=== PATIENT | female | born 1950 | race Caucasian/White ===

== ENCOUNTER 2021-04-12 13:05 | Outpatient (REF) | payer MEDICARE, MEDICAID, SELFPAY ==
[2021-04-12 14:31] LABS: Blood Urea Nitrogen 15 mg/dL (9-16); Estimated Glomerular Filt Rate 56
== END 2021-04-12 13:06 | disposition home or self-care (01) ==
LOC: HO.HMGCLDS 13:05
PROVIDERS: PCP Internal Medicine; Visit Provider Surgery Vascular Surgery
DX: I70.219 Atherosclerosis of native arteries of extremities with intermittent claudication, unspecified extremity (principal)
CPT/HCPCS: 36415; 82565; 84520

== ENCOUNTER 2024-04-19 13:09 | Outpatient (REF) | payer MEDICARE, MEDICAID, SELFPAY ==
[2024-04-19 16:05] LABS: MANUAL DIFF FLAG NO
[2024-04-19 16:18] LABS: Basophils Absolute Auto 0.1 X10*3/uL (0.0-0.2); Eosinophils Absolute Auto 0.2 X10*3/uL (0.0-0.4); Eosinophils Percent Auto 1.9 % (0-4); Hematocrit 39.7 % (37.0-47.0); Imm Gran Abs Auto 0.06 X10*3/uL (0.00-0.03); Imm Gran Pct Auto 0.8 % (0.0-0.4); Lymphocytes Absolute Auto 1.1 X10*3/uL (1.2-4.9); Lymphocytes Percent Auto 14.2 % (20-40); Mean Corpuscular HGB Conc 32.7 g/dl (31.0-35.0); Mean Corpuscular Hemoglobin 30.2 pg (27.0-33.0); Mean Corpuscular Volume 92.1 fL (80.0-98.0); Monocytes Absolute Auto 0.5 X10*3/uL (0.1-1.2); Monocytes Percent Auto 6.2 % (2-11); Neutrophils Percent Auto 75.9 % (45-73); Platelet Count 214 X10*3/uL (160-400); Red Blood Count 4.31 X10*6/uL (4.20-5.50); Red Cell Distribution Width 13.6 % (11.0-16.0); White Blood Count 7.9 X10*3/uL (4.8-10.8)
[2024-04-19 16:37] LABS: Alanine Aminotransferase 21 U/L (0-31); Albumin Level 3.6 g/dL (3.5-5.0); Alkaline Phosphatase 61 U/L (39-117); Anion Gap 16 (12-20); Aspartate Amino Transferase 22 U/L (5-31); Bilirubin Total 0.5 mg/dL (0.0-1.0); Blood Urea Nitrogen 24 mg/dL (9-16); Calcium 9.4 mg/dL (8.4-10.2); Carbon Dioxide 25 mmol/L (22-29); Chloride 100 mmol/L (96-108); Estimated Glomerular Filt Rate 33; Glucose Random 219 mg/dL (60-115); Magnesium 2.1 mg/dL (1.6-2.6); Phosphorus 3.2 mg/dL (2.7-4.5); Potassium 3.9 mmol/L (3.3-5.1); Sodium 137 mmol/L (135-145); Total Protein 6.9 g/dL (6.5-8.0); Uric Acid 7.5 mg/dL (2.4-5.7)
[2024-04-19 16:38] LABS: Creatinine Urine 149.33 mg/dL; Protein/Creatinine Ratio, Ur 0.08 (<0.2); Total Protein Urine Random 12 mg/dL (<12)
[2024-04-19 16:45] LABS: Parathyroid Hormone Intact 177.8 pg/mL (8.7-77.1)
== END 2024-04-19 13:10 | disposition home or self-care (01) ==
LOC: HO.HMGCLDS 13:09
PROVIDERS: PCP Internal Medicine; Visit Provider Internal Medicine Nephrology
DX: E11.22 Type 2 diabetes mellitus with diabetic chronic kidney disease (principal); N18.31 Chronic kidney disease, stage 3a; E78.5 Hyperlipidemia, unspecified; I25.10 Atherosclerotic heart disease of native coronary artery without angina pectoris; F31.9 Bipolar disorder, unspecified; I82.409 Acute embolism and thrombosis of unspecified deep veins of unspecified lower extremity; G47.33 Obstructive sleep apnea (adult) (pediatric)
CPT/HCPCS: 36415; 80053; 82306; 82570; 83735; 83970; 84100; 84156; 84550; 85025

== ENCOUNTER 2024-09-20 14:09 | Outpatient (REF) | payer MEDICARE, MEDICAID, SELFPAY ==
--- OUTSIDE RECORDS SUMMARY | 2024-09-20 15:51 | XMS_ITS | Clinical Summary ---
Author Organization [facility] Address [address] [facility] [address] [place] [address] Phone Care Team Providers Care Dry Color Tester Name Role Phone Tani Hernandes MD Primary Care Provider [phone] Allergies Active Allergy Reactions Criticality Noted Date Comments Codeine Itching,Nausea 08/31/2023 Morphine 09/15/2022 Oxycodone-Acetaminophen 09/15/2022 Other reaction(s): up set stomoch Medications atorvastatin (LIPITOR) 20 MG tablet Take 20 mg by mouth every night 0 Active carvedilol (COREG) 12.5 MG tablet Take 12.5 mg by mouth in the morning and 12.5 mg in the evening. 3 Active Breo Ellipta 100-25 MCG/ACT aerosol powder Inhale 1 puff 1 (one) time each day 3 Active furosemide (LASIX) 40 MG tablet TAKE 2 TABLETS BY MOUTH IN THE MORNING AND 1 TABLET IN AFTERNOON BY MOUTH 3 Active gabapentin (NEURONTIN) 800 MG tablet Take 800 mg by mouth in the morning and 800 mg in the evening. 3 Active glipiZIDE (GLUCOTROL) 5 MG tablet Take 5 mg by mouth 1 (one) time each day 1 Active Basaglar KwikPen 100 UNIT/ML injection Inject 46 Units under the skin every night 3 Active isosorbide mononitrate (IMDUR) 60 MG 24 hr tablet Take 60 mg by mouth 1 (one) time each day in the morning 3 Active levothyroxine (SYNTHROID, LEVOTHROID) 25 MCG tablet Take 25 mcg by mouth 1 (one) time each day 3 Active Lisinopril (ZESTRIL PO) Take 40 mg by mouth 1 (one) time each day 2 Active pantoprazole (Protonix) 40 MG EC tablet Take 40 mg by mouth 1 (one) time each day 2 Active pregabalin (LYRICA) 75 MG capsule Take 75 mg by mouth in the morning and 75 mg at noon and 75 mg in the evening. 3 Active QUEtiapine (SEROquel) 200 MG tablet Take 200 mg by mouth 1 (one) time each day 0 Active QUEtiapine (SEROquel) 50 MG tablet Take 50 mg by mouth 1 (one) time each day 3 Active sertraline (ZOLOFT) 25 MG tablet Take 25 mg by mouth 1 (one) time each day 3 Active traMADol (ULTRAM) 50 MG tablet Take 50 mg by mouth every 6 (six) hours if needed 0 Active traZODone (DESYREL) 150 MG tablet Take 150 mg by mouth 1 (one) time each day 3 Active apixaban (Eliquis) 5 MG tablet Take 5 mg by mouth in the morning and 5 mg in the evening. 3 Active aspirin (ST KARLA) 81 MG EC tablet Take 81 mg by mouth 1 (one) time each day Active insulin NPH, Isophane, (NovoLIN N) 100 UNIT/ML injection Inject under the skin 3 (three) times a day before meals 3 Active Dapagliflozin Propanediol (Farxiga) 5 MG tablet Take 5 mg by mouth 1 (one) time each day in the morning 90 tablet 4 Active amLODIPine (NORVASC) 10 MG tablet TAKE 1/2 TABLET BY MOUTH 1 TIME EACH DAY. 45 tablet 4 Active calcitriol (ROCALTROL) 0.25 MCG capsule TAKE 1 CAPSULE (0.25 MCG TOTAL) BY MOUTH 1 (ONE) TIME EACH DAY 90 capsule 4 10/20/19 25 Active Active Problems Problem Noted Date Diagnosed Date Type 2 diabetes mellitus wit h diabetic chronic kidney disease 04/23/2024 Malignant neoplasm of cecum 02/25/2024 Stage 3a chronic kidney disease 08/31/2023 Hypertension 08/31/2023 Dyslipidemia 08/31/2023 Peripheral arterial occlusive disease 08/31/2023 Abdominal aortic aneurysm wi thout rupture, not otherwise specified 08/31/2023 Coronary arteriosclerosis, not otherwise specifi ed 08/31/2023 Bipolar disorder, not otherwise specified 2023 Deep venous thrombosis <Unspecified side> 2023 Obstructive sleep apnea syndrome 08/31/2023 Diabetes mellitus, not otherwise specified 08/31 Hypomagnesemia 01/10/2023 Paroxysmal atrial fibrillation 10/04/2022 Resolved Problems Problem Noted Date Diagnosed Date Resolved Date Stage 3b chronic kidney disease 04/23/2024 07/21/2024 Encounters Date Type Department Care Team Description 09/04/2024 Refill [facility] [address] [place] [phone] Audie Muhammad MD 07/20/2024 Refill [facility] [address] [place] [phone] Audie Muhammad MD 07/19/2024 Refill [facility] [address] [place] [address] Audie Muhammad MD from Last 3 Months Family History Medical History Relation Comments Atrial fibrillation Brother Diabetes Brother Hypertension Brother Sleep apnea Brother Stroke Father Cancer Mother Diabetes Sister Heart disease Sister CHF Kidney disease Sister End stage Relation Status Comments Brother Father Mother Sister Social History Tobacco Use Types Packs/Day Years Used Date Smoking Tobacco: Never Assessed Comments Unknown Sex and Gender Information Value Date Recorded Sex Assigned at Not on file Legal Sex Female 8:57 AM EST Gender Identity Not on file Sexual Orientation Not on file Last Filed Vital Signs Vital Sign Reading Time Taken Comments Blood Pressure 159/80 04/23/2024 1:56 PM EDT Pulse 74 04/23/2024 1:56 PM EDT Temperature - - Respiratory Rate - - Oxygen Saturation 97% 04/23/2024 1:56 PM EDT Inhaled Oxygen Concentration - - Weight 122 kg (269 lb) 04/23/2024 1:56 PM EDT Height 162.6 cm (5' 4 ) 08/31/2023 10:20 AM EST Body Mass Index 46.17 08/31/2023 10:20 AM EST Plan of Treatment Upcoming Encounters Date Type Department Care Team (Late st Contact Info) Description 09/25/2024 9:20 AM EST Office [facility] [address] [facility] [address] [place] [phone] Elvis Shea MD [address] [facility] [address] [place] [phone] Health Maintenance Due Date Last Done Comments Breast Cancer Screening 1950 Pneumococcal Vaccine: 65+ Years (1 of 2 - PCV) 1956 Colorectal Cancer Screening: Annual FOBT 1999 Colorectal Cancer Screening: Colonoscopy 1999 Colorectal Cancer Screening: Sigmoidoscopy 1999 Diabetes: Hemoglobin A1C 08/31/2023 Diabetes: Ophthalmology Exam 08/31/2023 Diabetes: Pedal Pulse Checked 08/31/2023 Diabetes: Sensory Foot Exam 08/31/2023 Diabetes: Visual Foot Exam 08/31/2023 Influenza Vaccine (#1) 04/28/2024200 8, 08/06/2007 Hepatitis B Vaccine Aged Out No longe r eligible based on patient's age to complete this topic Insurance [place] Care Teams Dry Color Tester Relationship Specialty Start Date End Date Tani Hernandes MD [place] [address] [place], [place] PCP - General Internal Medicine 09/13/22
--- OUTSIDE RECORDS SUMMARY | 2024-09-20 15:51 | XMS_ITS | Encounter Summary ---
Author Organization [facility] Address [address] [place] [address] Care Team Providers Care Pipe Fitter Apprentice Name Role Phone Tani Hernandes MD Primary Care Provider [phone] Encounter Details Date Type Department Care Team Description 11/01/2022 Social Work [facility] [address] [place] [address] Jefe Neely, [facility] Social History Tobacco Use Types Packs/Day Years Used Date Smoking Tobacco: Former Cigarettes Q uit: 2018 Smokeless Tobacco: Never Alcohol Use Standard Drinks/Week Comments Not Currently 0 (1 standard drink = 0.6 oz pur e alcohol) Sex and Gender Information Value Date Recorded Sex Assigned at Female 11/02/2022 11:21 AM EST Gender Identity Not on file Sexual Orientation Not on file Job Start Date Occupation Industry Not on file Not on file Not on file COVID-19 Exposure Response Date Recorded In the last 10 days, have yo u been in contact with someone who was confirmed or suspected to have Coronavirus/COVID-19? No / Unsure 11/03/2022 12:56 PM EST documented as of this encounter Plan of Treatment Not on file documented as of this encounter Visit Diagnoses Not on filedocumented in this encounter Care Teams Pipe Fitter Apprentice Relationship Specialty Start Date End Date Tani Hernandes MD [address] [place] [address] PCP - General Internal Medicine 09/09/22 documented as of this encounter
--- OUTSIDE RECORDS SUMMARY | 2024-09-20 15:51 | XMS_ITS | Encounter Summary ---
Author Organization [facility] [place] [address] Care Team Providers Care Defence Force Senior Officer Name Role Phone Tani Hernandes MD Primary Care Provider [phone] Encounter Details Date Type Department Care Team [...] Assigned at Female 09/16/2024 12:58 PM EST Gender Identity Female 09/16/2024 12:58 PM EST Sexual Orientation Straight 09/16/2024 12 :58 PM EST Job Start Date Occupation Industry Not on file Not on file Not on file documented as of this encounter Last Filed [...] Care Team (Late st Contact Info) Description 09/27/2024 2:00 PM EST Appointment [facility] CT Scan [address] [place] [address] 10/28/2024 1:00 PM EST Appointment [facility] Infusion Center [address] [place] [phone] 11/08/2024 11:45 AM EDT Office Visit [facility] Hematology Oncology [address] [place] [phone] Arron Rowley MD [address] [place] [phone] documented as of this encounter Visit Diagnoses Not on filedocumented in this encounter Care Teams Defence [employer] Senior Officer Relationship Specialty Start Date End Date Tani Hernandes MD [address] [place] [address] PCP - General 09/09/22 documented as of this encounter
--- OUTSIDE RECORDS SUMMARY | 2024-09-20 15:51 | XMS_ITS ---
Author Organization [facility] Address [address] [place] [address] Care Team Providers Care Printed Circuit Boards Beveler Name Role Phone Tani Hernandes MD Primary Care Provider [phone] Active Problems Problem Noted Date Diagnosed Date Drug-induced peripheral neuropathy 02/07/2023 Type 2 diabetes mellitus wit h stage 3a chronic kidney disease, without long-term current use of insulin 01/10/2023 Hypomagnesemia 01/10/2023 Chronic midline low back pain without sciatica 0 12/13/2022 Anemia complicating neoplastic disease 3 COVID-19 10/07/2022 On continuous oral anticoagulation 10/07/2022 Diastolic CHF 10/04/2022 Acute non-Q wave non-ST elev ation myocardial infarction (NSTEMI) 10/04/2022 Multiple subsegmental pulmon manjeet emboli without acute cor pulmonale 10/04/2022 Acute respiratory failure with hypoxia 3 JAMAR (acute kidney injury) 10/04/2022 Anxiety and depression 10/04/2022 Aortic insufficiency 10/04/2022 DVT (deep venous thrombosis) 10/04/2022 Hypertension 10/04/2022 Paroxysmal atrial fibrillation 10/04/2022 SBO (small bowel obstruction) 10/04/2022 Malignant neoplasm of ascending colon 10/04/2022 Cancer Staging:Pathologic stage from 09/05/2022:Stage IIA(pT3, pN0, cM0) - Signed by Arron Garcia MD on 10/07/2022 Current Oncology Plans No current plan information found. Past Plans ONCOLOGY TREATMENT Plan Name Start Date Discontinue Date Treatment Medications Discontinue Reason Plan Provider Cycles SFC BCN OP FOLFOX 6 (MODIFIED) - OXALIPLATIN + LEUCOVORIN + FLUOROURACIL (5 HRS) 3 10/31/2023 albuterol (PROVENTIL)dexamethas one (DECADRON)dextrose 5 %diphenhydrAMINE (BENADRYL)EPINEPHrine famotidine (PF) (PEPCID)fluorouracil (5 FU) 46 Hr Chemo infusion- Home Usefluorouracil (ADRUCIL)hydrocortiso ne (SOLU-CORTEF) IVleucovorin (WELLCOVORIN) infusionmagnesium sulfatemagnesium sulfate 1g/100 mL D5W premix IVPBmeperidine (DEMEROL) 25 MG/MLoxaliplatin (ELOXATIN) chemo infusionpalonosetron (ALOXI)prochlorperazi ne (COMPAZINE)Saline Flush 0.9 %sodium chloride (NS) 0.9 %sodium chloride 0.9% bolus (NS)ZZ EXTEMPORANEOUS TEMPLATE Therapy Complete Arron Garcia MD 12 of 12 cycles started Radiation Treatments * No radiation treatments are documented for this patient in [facility]. Treatments may have been administered in another system.
--- OUTSIDE RECORDS SUMMARY | 2024-09-20 15:51 | XMS_ITS | Clinical Summary ---
Author Organization [facility] Address [address] [place] [address] Phone Care Team Providers Care Shirt Bander Name Role Phone Tani Hernandes MD Primary Care Provider [phone] Allergies Active Allergy Reactions Criticality Noted Date Comments Codeine 10/04/2022 Morphine 10/04/2022 Oxycodone-Acetaminophen 10/04/2022 Medications Medication Sig Dispensed Refills Start Date End Date Status amitriptyline (ELAVIL) 25 mg tablet Take 1 Tablet by mouth at bedtime. Active amLODIPine (NORVASC) 2.5 mg tablet Daily Active atorvastatin (LIPITOR) 20 mg tablet Take 1 Tablet by mouth daily. Active carvediloL (COREG) 12.5 mg tablet Take 1 Tablet by mouth 2 times daily (with meals). Active furosemide (LASIX) 40 mg tablet Twice A Day 09/16/2022 Active isosorbide mononitrate (IMDUR) 60 mg 24 hr tablet Take 1 Tablet by mouth daily. Active levothyroxine (SYNTHROID, LEVOTHROID) 25 mcg tablet Take 1 Tablet by mouth daily. Active traMADoL (ULTRAM) 50 mg tablet Take 1 Tablet by mouth every 8 hours. Active acetaminophen (TYLENOL) 325 mg tablet TAKE 2 TABLETS BY MOUTH EVERY 4 HOURS NEEDED FOR FEVER Active albuterol HFA (PROVENTIL HFA;VENTOLIN HFA) 108 (90 Base) MCG/ACT inhaler Route: Inhale 2 puffs into the lungs every 6 (six) hours as needed for wheezing. - Inhalation Active fluticasone furoate-vilanteroL (Breo Ellipta) 100-25 mcg/dose inhaler TAKE 1 PUFF INHALATION ONCE DAILY X30 DAYS Active dapagliflozin propanediol (FARXIGA) 5 mg tablet Take by mouth. - Oral Active apixaban (ELIQUIS) 5 mg tablet PLEASE SEE ATTACHED FOR DETAILED DIRECTIONS Active furosemide (LASIX) 20 mg tablet Take 1 tablet (20 mg total) by mouth 2 (two) times a day. - Oral Active gabapentin (NEURONTIN) 800 mg tablet Take 1 tablet (800 mg total) by mouth 3 (three) times a day. - Oral Active insulin glargine,hum.rec.anl og (Basaglar KwikPen U-100 Insulin) 100 unit/mL (3 mL) injection pen Inject 28 Units under the skin. - Subcutaneous Active lisinopriL (PRINIVIL,ZESTRIL) 20 mg tablet Take 1 tablet (20 mg total) by mouth daily. - Oral Active NYSTATIN TOP nystatin (MYCOSTATIN) powder Route: Apply topically 4 (four) times a day. - Topical Active pantoprazole (PROTONIX) 40 mg EC tablet Do not crush, chew, or split. TAKE 1 TABLET BY MOUTH EVERY DAY FOR 90 DAYS Active sodium chloride (Normal Saline Flush) 0.9 % injection Intracatheter: As needed for line care Active Active Problems Problem Noted Date Diagnosed Date Acute non-Q wave non-ST elev ation myocardial infarction (NSTEMI) 10/11/2023 Acute respiratory failure with hypoxia JAMAR (acute kidney injury) 10/11/2023 Anemia complicating neoplastic disease Anxiety and depression 10/11/2023 Aortic insufficiency 10/11/2023 Chronic midline low back pain without sciatica 0 10/11/2023 COVID-19 10/11/2023 Diastolic CHF 10/11/2023 Drug-induced peripheral neuropathy 10/11/2023 DVT (deep venous thrombosis) 10/11/2023 Hypertension 10/11/2023 Hypomagnesemia 10/11/2023 Malignant neoplasm of ascending colon 10/11/2023 Multiple subsegmental pulmon manjeet emboli without acute cor pulmonale 10/11/2023 Paroxysmal atrial fibrillation 10/11/2023 SBO (small bowel obstruction) 10/11/2023 Type 2 diabetes mellitus wit h stage 3a chronic kidney disease, without long-term current use of insulin 10/11/2023 Encounters Date Type Department Care Team Description 09/16/2024 12:59 PM EST - 09/16/2024 11:59 PM EST Hospital Encounter [facility] Infusion Center [address] [place] [phone] Malignant neoplasm of ascending colon ([facility]/HCC); Acute non-Q wave non-ST elevation myocardial infarction (NSTEMI) ([facility]/HCC) Discharge Disposition: Home or Self Care 08/09/2024 3:15 PM EST Office Visit [facility] Hematology Oncology [address] [place] [phone] Arron Portillo MD Malignant neoplasm of ascending colon ([facility]/HCC) (Primary Dx); Anemia complicating neoplastic disease; Anxiety and depression; Drug-induced peripheral neuropathy ([facility]/HCC); Chronic midline low back pain without sciatica 08/02/2024 12:59 PM EST - 08/02/2024 11:59 PM EST Hospital Encounter [address] [phone] Malignant neoplasm of ascending colon ([facility]/HCC) (Primary Dx); Acute non-Q wave non-ST elevation myocardial infarction (NSTEMI) ([facility]/HCC) Discharge Disposition: Home or Self Care 06/21/2024 2:17 PM EDT - 06/27/2024 11:59 PM EDT Hospital Encounter [facility] [address] [place] [phone] Arron Portillo MD 06/21/2024 12:53 PM EDT Hospital Encounter TH HISTORIC ENCOUNTERS EASTERN CONVERSION ONLY from Last 3 Months Surgical History Surgery Date Site/Laterality Comments COLONOSCOPY PROCEDURE:COLONOSCOPY HYSTERECTOMY PROCEDURE:HYSTERECTOMY CHOLECYSTECTOMY PROCEDURE:CHOLECYSTECTOMY TOTAL KNEE ARTHROPLASTY PROCEDURE:REPLACEMENT TOTAL KNEE;COMMENT:right DOUBLE CHAMBER RIGHT VENTRIC LE REPAIR PROCEDURE:DOUBLE CHAMBER RIGHT VENTRICLE REPAIR Family History Medical History Relation Name Comments Cancer Mother leukemia Cancer Nephew Relation Name Status Comments Mother Nephew Alive Social History Tobacco Use Types Packs/Day Years [...] file Not on file Not on file Obstetrics History Last Filed Vital Signs Vital Sign Reading Time Taken Comments Blood Pressure 151/71 08/09/2024 3:08 PM EST Pulse 64 08/09/2024 3:08 PM EST Temperature 36.4 ??C (97.5 ??F) 08/09/2024 3:08 PM ES T Respiratory Rate - - Oxygen Saturation 98% 08/09/2024 3:08 PM EST Inhaled Oxygen Concentration - - Weight 124 kg (274 lb) 08/09/2024 3:08 PM EST Height 162.6 cm (5' 4 ) 08/09/2024 3:08 PM EST Body Mass Index 47.03 08/09/2024 3:08 PM EST Plan of Treatment Upcoming Encounters Date Type Department Care Team (Late st Contact Info) Description 09/27/2024 2:00 PM EST Appointment [facility] CT Scan [address] [place] [phone] 10/28/2024 1:00 PM EST Appointment [facility] Infusion Center [address] [place] [phone] 11/08/2024 11:45 AM EDT Office Visit [facility] Hematology Oncology [address] [place] [address] Arron Rowley MD [address] [place] [address] Health Maintenance Due Date Last Done Comments Breast Cancer Screening 1950 Diabetes: Annual Foot Exam 1960 Diabetes: Annual Retina Eye Exam 1960 RSV Immunization Patients 60+ Years Old (1 - Risk 60-74 years 1-dose series) 2010 Pneumococcal Vaccine: 65+ Years (2 of 2 - PPSV23 or PCV20) 05/30/2018 04/04/2018 Zoster Vaccines (2 of 2) 05/22/2020 03/27/2020, 02/27 Cholesterol Screening (Lipid Panel) 07/26/2022 Colorectal Cancer Screening: Colonoscopy 07/26/2022 Depression Screening 07/26/2022 Falls Risk Assessment 07/26/2022 Hepatitis C Screening 07/26/2022 Osteoporosis Screening (Bone Density Screening) 07/26/2022 Social Influencers of Health Screening 07/26/2022 Diabetes: Annual Urine Albumin-Creatinine Ratio (uACR) 10/12/2023 Diabetes: Blood Sugar Control Test (HGBA1C) 10/12/2023 COVID-19 Vaccine ( season) 2024 09/15/2021, 12/14/2020, 11/16/2020 Influenza Vaccine (#1) 2024 , 06/17/2022, 05/27/2022, Additional history exists Medicare Annual Wellness Visit 06/06/2024 06/06/2023 Diabetes: Annual GFR (Glomerular Filtration Rate) 09/16/2025 09/16/2024, 06/21/2024, 04/19/2024, Additional history exists Hypertension/CHF/CAD Annual BMP Blood Test 09/16/2025 09/16/2024, 06/21/2024, 04/19/2024, Additional history exists DTaP,Tdap,and Td Vaccines (3 - Td or Tdap) 10/04/2031 10/04/2021, 05/22/2008 HIB Vaccines Aged Out No longer eligi ble based on patient's age to complete this topic HPV Vaccines Aged Out No longer eligi ble based on patient's age to complete this topic Hepatitis A Vaccines Aged Out No long er eligible based on patient's age to complete this topic Hepatitis B Vaccines Aged Out No long er eligible based on patient's age to complete this topic IPV Vaccines Aged Out No longer eligi ble based on patient's age to complete this topic MMR Vaccines Aged Out No longer eligi ble based on patient's age to complete this topic Meningococcal ACWY Vaccine Aged Out N o longer eligible based on patient's age to complete this topic RSV Immunization Patients Under 20 months Aged Out No longer eligible based on patient's age to complete this topic Varicella Vaccines Aged Out No longer eligible based on patient's age to complete this topic Procedures Procedure Name Priority Date/Time Associated Diagnosis Comments CBC WITH AUTO DIFFERENTIAL Routine 09/16/2024 1:14 PM EST Malignant neoplasm of ascending colon (CMS/HCC) Acute non-Q wave non-ST elevation myocardial infarction (NSTEMI) (CMS/HCC) CARCINOEMBRYONIC ANTIGEN Routine 025 1:14 PM EST Malignant neoplasm of ascending colon (CMS/HCC) Acute non-Q wave non-ST elevation myocardial infarction (NSTEMI) (CMS/HCC) COMPREHENSIVE METABOLIC PANEL Routine 09/16/2024 1:14 PM EST Malignant neoplasm of ascending colon (CMS/HCC) Acute non-Q wave non-ST elevation myocardial infarction (NSTEMI) (CMS/HCC) CBC AND DIFFERENTIAL Routine 09/16/2024 1:14 PM EST Malignant neoplasm of ascending colon (CMS/HCC) Acute non-Q wave non-ST elevation myocardial infarction (NSTEMI) (CMS/HCC) COMPREHENSIVE METABOLIC PANEL Routine 06/21/2024 12:14 PM EDT ..CBC WITH MANUAL DIFFERENTIAL Routine 06/21/2024 12:10 PM EDT from Last 3 Months Results * (ABNORMAL) CBC auto differential (09/16/2024 1:14 PM EST) WBC 6.8 4.8 - 10.8 K/mcL LAB HEMETOLOGY METHOD 09/16/2024 2:20 PM EST [facility] RBC 4.20 3.80 - 4.80 M/mcL LAB HEMETOLOGY METHOD 09/16/2024 2:20 PM EST [facility] Hemoglobin 12.5 11.5 - 16.0 g/dL LAB HEMETOLOGY METHOD 09/16/2024 2:20 PM EST [facility] Hematocrit 38.7 35.0 - 47.0 % LAB HEMETOLOGY METHOD 09/16/2024 2:20 PM [facility] MCV 92.1 79.0 - 98.0 FL LAB HEMETOLOGY METHOD 09/16/2024 2:20 PM [facility] MCH 29.8 27.0 - 32.0 pcg LAB HEMETOLOGY METHOD 09/16/2024 2:20 PM [facility] MCHC 32.3 32.0 - 37.0 g/dL LAB HEMETOLOGY METHOD 09/16/2024 2:20 PM [facility] RDW 14.2 11.0 - 15.0 % LAB HEMETOLOGY METHOD 09/16/2024 2:20 PM [facility] Platelets 219 130 - 400 K/mcL LAB HEMETOLOGY METHOD 09/16/2024 2:20 PM [facility] MPV 9.7 7.0 - 11.0 FL LAB HEMETOLOGY METHOD 09/16/2024 2:20 PM [facility] NRBC 0.0 <1.0 % LAB HEMETOLOGY METHOD 09/16/2024 2:20 PM [facility] NRBC Absolute 0.00 <0.10 K/mcL LAB HEMETOLOGY METHOD 09/16/2024 2:20 PM [facility] Neutrophils Relative 76.1 % LAB HEMETOLOGY METHOD 09/16/2024 2:20 PM [facility] Lymphocytes Relative 14.1 % LAB HEMETOLOGY METHOD 09/16/2024 2:20 PM [facility] Monocytes Relative 7.0 % LAB HEMETOLOGY METHOD 09/16/2024 2:20 PM [facility] Eosinophils Relative 1.8 % LAB HEMETOLOGY METHOD 09/16/2024 2:20 PM [facility] Basophils Relative 0.6 % LAB HEMETOLOGY METHOD 09/16/2024 2:20 PM EST [facility] Immature Granulocytes Relative 0.4 % LAB HEMETOLOGY METHOD 09/16/2024 2:20 PM EST [facility] Neutrophils Absolute 5.15 1.50 - 7.00 K/mcL LAB HEMETOLOGY METHOD 09/16/2024 2:20 PM EST [facility] Lymphocytes Absolute 0.95(L) 1.00 - 5.00 K/mcL LAB HEMETOLOGY METHOD 09/16/2024 2:20 PM EST [facility] Monocytes Absolute 0.47 0.20 - 1.00 K/mcL LAB HEMETOLOGY METHOD 09/16/2024 2:20 PM EST [facility] Eosinophils Absolute 0.12 0.00 - 0.50 K/mcL LAB HEMETOLOGY METHOD 09/16/2024 2:20 PM EST [facility] Basophils Absolute 0.04 0.00 - 0.20 K/mcL LAB HEMETOLOGY METHOD 09/16/2024 2:20 PM EST [facility] Immature Granulocytes Absolute 0.03 0.00 - 0.03 K/mcL LAB HEMETOLOGY METHOD 09/16/2024 2:20 PM EST [facility] Blood Blood sample taken from central line / Unknown Existing Catheter / Unknown 09/16/2024 1:14 PM EST 09/16/2024 2:02 PM EST Arron Rowley MD LAB BLOOD O RDERABLES [facility] [address] [place] [address], * CEA (09/16/2024 1:14 PM EST) CEA 2.4 0.0 - 5.0 ng/mL LAB CHEMISTRY METHOD 09/16/2024 3:06 PM EST [facility] Blood Blood sample taken from central line / Unknown Existing Catheter / Unknown 09/16/2024 1:14 PM EST 09/16/2024 2:02 PM EST [facility] - 09/16/2024 3:06 PM EST The Siemens Advia Centaur Chemiluminescent Immunoassay is used. Results obtained with different assay methods or kits cannot be used interchangeably. Results cannot be interpreted as absolute evidence of the presence or absence of malignant disease. Arron Rowley MD LAB BLOOD O RDERABLES [facility] [address] [place] [address], * (ABNORMAL) Comprehensive metabolic panel (09/16/2024 1:14 PM EST) Only the most recent of2 resultswithin the time period is included. Sodium 137 133 - 145 mmol/L LAB CHEMISTRY METHOD 09/16/2024 3:02 PM [facility] Potassium 3.4(L) 3.5 - 5.5 mmol/L LAB CHEMISTRY METHOD 09/16/2024 3:02 PM [facility] Chloride 101 96 - 110 mmol/L LAB CHEMISTRY METHOD 09/16/2024 3:02 PM [facility] CO2 27 21 - 32 mmol/L LAB CHEMISTRY METHOD 09/16/2024 3:02 PM [facility] Anion Gap 9 3 - 11 LAB CHEMISTRY METHOD 09/16/2024 3:02 PM [facility] Glucose 154(H) 70 - 100 mg/dL LAB CHEMISTRY METHOD 09/16/2024 3:02 PM [facility] BUN 25 5 - 25 mg/dL LAB CHEMISTRY METHOD 09/16/2024 3:02 PM [facility] Creatinine 1.33(H) 0.50 - 1.10 mg/dL LAB CHEMISTRY METHOD 09/16/2024 3:02 PM [facility] eGFR 42(L) >=60 mL/min/1. 73m2 LAB CHEMISTRY METHOD 09/16/2024 3:02 PM [facility] Comment:Calculation based on the??Chronic Kidney Disease Epidemiology Collaboration (CKD-EPI) equation refit??without adjustment for race. BUN/Creatinine Ratio 18.8 LAB CHEMISTRY METHOD 09/16/2024 3:02 PM [facility] Calcium 9.1 8.5 - 10.5 mg/dL LAB CHEMISTRY METHOD 09/16/2024 3:02 PM [facility] AST (SGOT) 25 10 - 42 unit/L LAB CHEMISTRY METHOD 09/16/2024 3:02 PM [facility] ALT (SGPT) 28 10 - 60 unit/L LAB CHEMISTRY METHOD 09/16/2024 3:02 PM [facility] Alkaline Phosphatase 61 42 - 121 unit/L LAB CHEMISTRY METHOD 09/16/2024 3:02 PM [facility] Total Protein 6.5 6.0 - 8.0 g/dL LAB CHEMISTRY METHOD 09/16/2024 3:02 PM [facility] Albumin 3.5 3.2 - 5.0 g/dL LAB CHEMISTRY METHOD 09/16/2024 3:02 PM [facility] Total Bilirubin 0.5 0.0 - 1.4 mg/dL LAB CHEMISTRY METHOD 09/16/2024 3:02 PM [facility] Blood Blood sample taken from central line / Unknown Existing Catheter / Unknown 09/16/2024 1:14 PM EST 09/16/2024 2:02 PM EST Arron Rowley MD LAB BLOOD O RDERABLES [facility] [address] [place] [address], * CBC with manual differential (06/21/2024 12:10 PM EDT) Blood Venous blood specimen / Unknown Miaramkj Rowley MD LAB BLOOD O RDERABLES from Last 3 Months Care Teams Shirt Bander Relationship Specialty Start Date End Date Tani Hernandes MD [address] [place] [address] PCP - General 09/09/22
--- OUTSIDE RECORDS SUMMARY | 2024-09-20 15:51 | XMS_ITS | Clinical Summary ---
Author Organization [facility] Address [address] [place] [address] Care Team Providers Care Card Clothier Name Role Phone Tani Hernandes MD Primary Care Provider [phone] Allergies Active Allergy Reactions Criticality Noted Date Comments Codeine 10/04/2022 Morphine 10/04/2022 Oxycodone-Acetaminophen 10/04/2022 Medications Medication Sig Dispensed Refills Start Date End Date Status acetaminophen (TYLENOL) 325 MG tablet TAKE 2 TABLETS BY MOUTH EVERY 4 HOURS NEEDED FOR FEVER 0 09/20/2022 Active amitriptyline (ELAVIL) tablet 25 mg Take 1 tablet (25 mg total) by mouth every night at bedtime. 0 08/11/2022 Active amLODIPine (NORVASC) tablet 2.5 mg Take 1 tablet (2.5 mg total) by mouth daily. 0 09/28/2022 Active Eliquis 5 MG TABS tablet PLEASE SEE ATTACHED FOR DETAILED DIRECTIONS 0 09/21/2022 Active atorvastatin (LIPITOR) tablet 20 mg Take 1 tablet (20 mg total) by mouth daily. 0 08/02/2022 Active carvedilol (COREG) 12.5 MG tablet Take 1 tablet (12.5 mg total) by mouth 2 (two) times a day. 0 07/12/2022 Active Breo Ellipta 100-25 MCG/ACT inhaler TAKE 1 PUFF INHALATION ONCE DAILY X30 DAYS 0 09/25/2022 Active furosemide (LASIX) 40 MG tablet Take 1 tablet (40 mg total) by mouth 2 (two) times a day. 0 08/14/2022 Active isosorbide mononitrate (IMDUR) 60 MG 24 hr tablet Take 1 tablet (60 mg total) by mouth every morning. 0 09/11/2022 Active pantoprazole (PROTONIX) 40 MG tablet TAKE 1 TABLET BY MOUTH EVERY DAY FOR 90 DAYS 0 09/11/2022 Active Insulin Glargine (Basaglar KwikPen) 100 UNIT/ML SOPN Inject 28 Units under the skin. 0 Active traMADol (Ultram) 50 MG tablet 1 tablet BEDTIME (route: oral) 0 09/15/2022 Active albuterol 108 (90 Base) MCG/ACT inhaler Inhale 2 puffs into the lungs every 6 (six) hours as needed for wheezing. 6.7 g 5 04/07/2023 Active gabapentin (NEURONTIN) 800 MG tablet Take 1 tablet (800 mg total) by mouth 3 (three) times a day. 0 Active levothyroxine (SYNTHROID) tablet 25 mcg Take 1 tablet (25 mcg total) by mouth every morning on an empty stomach. 0 Active lisinopril (PRINIVIL,ZESTRIL) tablet 20 mg Take 1 tablet (20 mg total) by mouth daily. 0 Active dapagliflozin (FARXIGA) tablet 5 mg Take by mouth. 0 Active furosemide (LASIX) 20 MG tablet Take 1 tablet (20 mg total) by mouth 2 (two) times a day. 0 Active nystatin (MYCOSTATIN) powder Apply topically 4 (four) times a day. 60 g 1 10/04/2023 Active ketoconazole (NIZORAL) 2 % cream Apply topically daily. 60 g 0 11/09/2023 Active predniSONE (DELTASONE) tablet 20 mg Take 1 tablet (20 mg total) by mouth 2 (two) times a day. 14 tablet 0 04/03/2024 Active Active Problems Problem Noted Date Diagnosed [...] pulmonale 10/04/2022 Acute respiratory failure with hypoxia JAMAR (acute kidney injury) 10/04/2022 Anxiety and depression 10/04/2022 Aortic insufficiency 10/04/2022 DVT (deep venous thrombosis) 10/04/2022 Hypertension 10/04/2022 Paroxysmal atrial fibrillation 10/04/2022 SBO (small bowel obstruction) 10/04/2022 Malignant neoplasm of ascending colon 10/04/2022 Cancer Staging:Pathologic stage from 09/05/2022:Stage IIA(pT3, pN0, cM0) - Signed by Arron Garcia MD on 10/07/2022 Encounters Date Type Department Care Team Description 06/21/2024 1:00 PM EDT Clinical Support [facility] Oncology Infusion Services [address] [place] [address] Eugenia Pacheco RN Malignant neoplasm of ascending colon (HCC) 06/21/2024 Travel from Last 3 Months Family History Medical History Relation Name Comments Cancer Mother leukemia Cancer Nephew Relation Name Status Comments Mother Nephew Alive Social History Tobacco Use Types Packs/Day Years Used Date Smoking Tobacco: Former Cigarettes Q uit: 2018 Smokeless Tobacco: Never Tobacco Cessation:Counseling Given: Not Answered Alcohol Use Standard Drinks/Week Comments Not Currently 0 (1 standard drink = 0.6 oz pur e alcohol) Sex and Gender Information Value Date Recorded Sex Assigned at Female 11/02/2022 11:21 AM EST Gender Identity Not on file Sexual Orientation Not on file Job Start Date Occupation Industry Not on file Not on file Not on file Last Filed Vital Signs Vital Sign Reading Time Taken Comments Blood Pressure 156/70 04/03/2024 11:26 AM EDT Pulse 65 04/03/2024 11:26 AM EDT Temperature 36.1 ??C (97 ??F) 04/03/2024 11: 26 AM EDT Respiratory Rate 20 06/16/2023 3:59 PM EDT Oxygen Saturation 98% 04/03/2024 11: 26 AM EDT Inhaled Oxygen Concentration - - Weight 123.2 kg (271 lb 9.6 oz) 024 11:26 AM EDT Height 162.6 cm (5' 4 ) 04/03/2024 11:2 6 AM EDT Body Mass Index 46.62 04/03/2024 11:26 AM EDT Plan of Treatment Health Maintenance Due Date Last Done Comments Hepatitis C Screening 1950 COVID-19 Vaccine (#1) 1955 Depression Screening 1962 BMI Counseling 1968 Preventative Health Evaluation 1968 Colon Cancer Screening (Colonoscopy) 1995 Breast Cancer Screening (Mammogram) 2000 DTap / Tdap / Td (1 - Tdap) 05/23/2008 05/22/2008 RSV Adult > 60+ Yrs or (1 - Risk 60-74 years 1-dose series) 2010 Fall Risk Assessment 2015 Osteoporosis Screening (DEXA Scan) 2015 Pneumococcal Vaccine (2 of 2 - PPSV23 or PCV20) 05/30/2018 04/04/2018 Shingrix-Zoster Vaccine (2 of 2) 05/22/2020 03/27/2020 Influenza Vaccine (#1) 2024 0, 06/22/2017, 07/15/2016, Additional history exists Hepatitis B Vaccines Aged Out No long er eligible based on patient's age to complete this topic RSV Ped < 20 months Aged Out No longe r eligible based on patient's age to complete this topic Care Teams Card Clothier Relationship Specialty Start Date End Date Tani Hernandes MD [address] [place] [address] PCP - General Internal Medicine 09/09/22
--- OUTSIDE RECORDS SUMMARY | 2024-09-20 15:51 | XMS_ITS | Encounter Summary ---
Author Organization [facility] Address [address] [facility] [address] [place] [address] Phone Care Team Providers Care Computer Typesetter Name Role Phone Tani Hernandes MD Primary Care Provider [phone] Reason for Visit * Reason Comments Med Refill Encounter Details Date Type Department Care Team (Late st Contact Info) Description 09/04/2024 Refill [facility] [address] [facility] [address] [place] [phone] Audie Muhammad MD [address] [phone] Social History Tobacco Use Types Packs/Day Years Used Date Smoking Tobacco: Never Assessed Comments Unknown Sex and Gender Information Value Date Recorded Sex Assigned at Not on file Legal Sex Female 8:57 AM EST Gender Identity Not on file Sexual Orientation Not on file documented as of this encounter Plan of Treatment Upcoming Encounters Date Type Department Care Team (Late st Contact Info) Description 09/25/2024 9:20 AM EST Office Visit [facility] [address] [facility] [address] [place] [address] Elvis Shea MD [address] [facility] [address] [place] [address] documented as of this encounter Visit Diagnoses Not on filedocumented in this encounter Care Teams Computer Typesetter Relationship Specialty Start Date End Date Tani Hernandes MD [address] PCP - General Internal Medicine 09/13/22 documented as of this encounter
--- OUTSIDE RECORDS SUMMARY | 2024-09-20 15:51 | XMS_ITS | Encounter Summary ---
Author Organization [employer] Address [address] [place] [address] Care Team Providers Care [employer] Programmer Name Role Phone Tani Hernandes MD Primary Care Provider [phone] Encounter Details Date Type Department Care Team (Latest Contact Info) Description 09/16/2024 12:59 PM EST - 09/16/2024 11:59 PM EST Hospital Encounter [facility] Infusion Center [address] [place] [address] [address] [place] [address] Malignant neoplasm of ascending colon ([facility]/HCC); Acute non-Q wave non-ST elevation myocardial infarction (NSTEMI) ([facility]/HCC) Discharge Disposition: Home or Self Care Social History Tobacco Use Types Packs/Day Years [...] on file documented as of this encounter Medications at Time of Discharge Medication Sig Dispensed Refills Start Date End Date acetaminophen (TYLENOL) 325 mg tablet TAKE 2 TABLETS BY MOUTH EVERY 4 HOURS NEEDED FOR FEVER albuterol HFA (PROVENTIL HFA;VENTOLIN HFA) 108 (90 Base) MCG/ACT inhaler Route: Inhale 2 puffs into the lungs every 6 (six) hours as needed for wheezing. - Inhalation amitriptyline (ELAVIL) 25 mg tablet Take 1 Tablet by mouth at bedtime. amLODIPine (NORVASC) 2.5 mg tablet Daily apixaban (ELIQUIS) 5 mg tablet PLEASE SEE ATTACHED FOR DETAILED DIRECTIONS atorvastatin (LIPITOR) 20 mg tablet Take 1 Tablet by mouth daily. carvediloL (COREG) 12.5 mg tablet Take 1 Tablet by mouth 2 times daily (with meals). dapagliflozin propanediol (FARXIGA) 5 mg tablet Take by mouth. - Oral fluticasone furoate-vilanteroL (Breo Ellipta) 100-25 mcg/dose inhaler TAKE 1 PUFF INHALATION ONCE DAILY X30 DAYS furosemide (LASIX) 20 mg tablet Take 1 tablet (20 mg total) by mouth 2 (two) times a day. - Oral furosemide (LASIX) 40 mg tablet Twice A Day 09/16/2022 gabapentin (NEURONTIN) 800 mg tablet Take 1 tablet (800 mg total) by mouth 3 (three) times a day. - Oral insulin glargine,hum.rec.anlog (Basaglar KwikPen U-100 Insulin) 100 unit/mL (3 mL) injection pen Inject 28 Units under the skin. - Subcutaneous isosorbide mononitrate (IMDUR) 60 mg 24 hr tablet Take 1 Tablet by mouth daily. levothyroxine (SYNTHROID, LEVOTHROID) 25 mcg tablet Take 1 Tablet by mouth daily. lisinopriL (PRINIVIL,ZESTRIL) 20 mg tablet Take 1 tablet (20 mg total) by mouth daily. - Oral NYSTATIN TOP nystatin (MYCOSTATIN) powder Route: Apply topically 4 (four) times a day. - Topical pantoprazole (PROTONIX) 40 mg EC tablet Do not crush, chew, or split. TAKE 1 TABLET BY MOUTH EVERY DAY FOR 90 DAYS sodium chloride (Normal Saline Flush) 0.9 % injection Intracatheter: As needed for line care traMADoL (ULTRAM) 50 mg tablet Take 1 Tablet by mouth every 8 hours. documented as of this encounter Discharge Disposition Disposition Code Departure Means Destination Home or Self Care documented in this encounter Progress Notes * Eugenia Pacheco RN - 09/16/2024 1:00 PM EST Pt arrives today for port draw. Pt reports feeling well overall. RIGHT upper chest port accessed per protocol. Positive blood return noted. Labs drawn and sent. Port flushed and deaccessed without difficulty. Appointment made for next port flush. Stable at discharge. documented in this encounter Plan of Treatment Upcoming Encounters Date Type Department Care Team (Late st Contact Info) Description 09/27/2024 2:00 PM EST Appointment [facility] CT Scan [address] [place] [address] 10/28/2024 1:00 PM EST Appointment [facility] Infusion Center [address] [phone] 11/08/2024 11:45 AM EDT Office Visit [facility] Hematology Oncology [address] [place] [phone] Arron Rowley MD [address] [place] [address] documented as of this encounter Procedures Procedure Name Priority Date/Time Associated Diagnosis [...] wave non-ST elevation myocardial infarction (NSTEMI) (CMS/HCC) documented in this encounter Results * (ABNORMAL) CBC auto differential (09/16/2024 1:14 PM EST) [facility] WBC 6.8 4.8 - 10.8 K/mcL LAB HEMETOLOGY METHOD 09/16/2024 2:20 PM EST [facility] RBC 4.20 3.80 - 4.80 M/mcL LAB HEMETOLOGY METHOD 09/16/2024 2:20 PM [facility] Hemoglobin 12.5 11.5 - 16.0 g/dL LAB HEMETOLOGY METHOD 09/16/2024 2:20 PM [facility] Hematocrit 38.7 35.0 - 47.0 % LAB HEMETOLOGY METHOD 09/16/2024 2:20 PM [facility] MCV 92.1 79.0 - 98.0 FL LAB HEMETOLOGY METHOD 09/16/2024 2:20 PM [facility] MCH 29.8 27.0 - 32.0 pcg LAB HEMETOLOGY METHOD 09/16/2024 2:20 PM [facility] MCHC 32.3 32.0 - 37.0 g/dL LAB HEMETOLOGY METHOD 09/16/2024 2:20 PM [facility] RDW 14.2 11.0 - 15.0 % LAB HEMETOLOGY METHOD 09/16/2024 2:20 PM [facility] Platelets 219 130 - 400 K/mcL LAB HEMETOLOGY METHOD 09/16/2024 2:20 PM [facility] MPV 9.7 7.0 - 11.0 FL LAB HEMETOLOGY METHOD 09/16/2024 2:20 PM [facility] NRBC 0.0 <1.0 % LAB HEMETOLOGY METHOD 09/16/2024 2:20 PM [facility] NRBC Absolute 0.00 <0.10 K/mcL LAB HEMETOLOGY METHOD 09/16/2024 2:20 PM [facility] Neutrophils Relative 76.1 % LAB HEMETOLOGY METHOD 09/16/2024 2:20 PM [facility] Lymphocytes Relative 14.1 % LAB HEMETOLOGY METHOD 09/16/2024 2:20 PM [facility] Monocytes Relative 7.0 % LAB HEMETOLOGY METHOD 09/16/2024 2:20 PM [facility] Eosinophils Relative 1.8 % LAB HEMETOLOGY METHOD 09/16/2024 2:20 PM [facility] Basophils Relative 0.6 % LAB HEMETOLOGY METHOD 09/16/2024 2:20 PM [facility] Immature Granulocytes Relative 0.4 % LAB HEMETOLOGY METHOD 09/16/2024 2:20 PM [facility] Neutrophils Absolute 5.15 1.50 - 7.00 K/mcL LAB HEMETOLOGY METHOD 09/16/2024 2:20 PM [facility] Lymphocytes Absolute 0.95(L) 1.00 - 5.00 K/mcL LAB HEMETOLOGY METHOD 09/16/2024 2:20 PM [facility] Monocytes Absolute 0.47 0.20 - 1.00 K/mcL LAB HEMETOLOGY METHOD 09/16/2024 2:20 PM [facility] Eosinophils Absolute 0.12 0.00 - 0.50 K/mcL LAB HEMETOLOGY METHOD 09/16/2024 2:20 PM [facility] Basophils Absolute 0.04 0.00 - 0.20 K/mcL LAB HEMETOLOGY METHOD 09/16/2024 2:20 PM [facility] Immature Granulocytes Absolute 0.03 0.00 - 0.03 K/mcL LAB HEMETOLOGY METHOD 09/16/2024 2:20 PM EST [facility] Blood Blood sample taken from central line / Unknown Existing Catheter / Unknown 09/16/2024 1:14 PM EST 09/16/2024 2:02 PM EST Subramony Amrik ARIZMENDI LAB BLOOD O RDOTTO Performing Organization Address [facility] de Phone Number [facility] [address] [place] [address], [place] [phone] * CEA (09/16/2024 1:14 PM EST) Pathologist [facility] CEA 2.4 0.0 - 5.0 ng/mL LAB CHEMISTRY METHOD 09/16/2024 3:06 PM EST [facility] Blood Blood sample taken from central line / Unknown Existing Catheter / Unknown 09/16/2024 1:14 PM EST 09/16/2024 2:02 PM EST Narrative [facility] - 09/16/2024 3:06 PM EST The Siemens Advia Centaur Chemiluminescent Immunoassay is used. Results obtained with different assay methods or kits cannot be used interchangeably. Results cannot be interpreted as absolute evidence of the presence or absence of malignant disease. Subramony Amrik ARIZMENDI LAB BLOOD O RASHIDA Performing Organization Address [facility] de Phone Number [facility] [address] [place] [address], [place] [phone] * (ABNORMAL) Comprehensive metabolic panel (09/16/2024 1:14 PM EST) Pathologist [facility] Sodium 137 133 - 145 mmol/L LAB CHEMISTRY METHOD 09/16/2024 3:02 PM EST [facility] Potassium 3.4(L) 3.5 - 5.5 mmol/L LAB CHEMISTRY METHOD 09/16/2024 3:02 PM EST [facility] Chloride 101 96 - 110 mmol/L LAB CHEMISTRY METHOD 09/16/2024 3:02 PM [facility] CO2 27 21 - 32 mmol/L LAB CHEMISTRY METHOD 09/16/2024 3:02 PM [facility] Anion Gap 9 3 - 11 LAB CHEMISTRY METHOD 09/16/2024 3:02 PM [facility] Glucose 154(H) 70 - 100 mg/dL LAB CHEMISTRY METHOD 09/16/2024 3:02 PM [facility] BUN 25 5 - 25 mg/dL LAB CHEMISTRY METHOD 09/16/2024 3:02 PM [facility] Creatinine 1.33(H) 0.50 - 1.10 mg/dL LAB CHEMISTRY METHOD 09/16/2024 3:02 PM [facility] eGFR 42(L) >=60 mL/min/1. 73m2 LAB CHEMISTRY METHOD 09/16/2024 3:02 PM [facility] Comment:Calculation based on the??Chronic Kidney Disease Epidemiology Collaboration (CKD-EPI) equation refit??without adjustment for race. BUN/Creatinine Ratio 18.8 LAB CHEMISTRY METHOD 09/16/2024 3:02 PM [facility] Calcium 9.1 8.5 - 10.5 mg/dL LAB CHEMISTRY METHOD 09/16/2024 3:02 PM [facility] AST (SGOT) 25 10 - 42 unit/L LAB CHEMISTRY METHOD 09/16/2024 3:02 PM [facility] ALT (SGPT) 28 10 - 60 unit/L LAB CHEMISTRY METHOD 09/16/2024 3:02 PM [facility] Alkaline Phosphatase 61 42 - 121 unit/L LAB CHEMISTRY METHOD 09/16/2024 3:02 PM [facility] Total Protein 6.5 6.0 - 8.0 g/dL LAB CHEMISTRY METHOD 09/16/2024 3:02 PM [facility] Albumin 3.5 3.2 - 5.0 g/dL LAB CHEMISTRY METHOD 09/16/2024 3:02 PM EST [facility] Total Bilirubin 0.5 0.0 - 1.4 mg/dL LAB CHEMISTRY METHOD 09/16/2024 3:02 PM EST [facility] Blood Blood sample taken from central line / Unknown Existing Catheter / Unknown 09/16/2024 1:14 PM EST 09/16/2024 2:02 PM EST Subramony Amrik ARIZMENDI LAB BLOOD O RDERABLES [facility] [address] [place] [address], documented in this encounter Visit Diagnoses Diagnosis Malignant neoplasm of ascending colon (CMS/HCC) Malignant neoplasm of ascending colon Acute non-Q wave non-ST elevation myocardial infarction (NSTEMI) (CMS/HCC) documented in this encounter Care Teams [employer] Programmer Relationship Specialty Start Date End Date Tani Hernandes MD [address] [place] [phone] PCP - General 09/09/22 documented as of this encounter
--- OUTSIDE RECORDS SUMMARY | 2024-09-20 15:51 | XMS_ITS ---
Author Organization [facility] Address [address] [place] [address] Phone Care Team Providers Care Wardsperson Name Role Phone Tani Hernandes MD Primary Care Provider [phone] Active Problems Problem Noted Date Diagnosed Date Acute non-Q wave non-ST elev ation myocardial infarction (NSTEMI) 10/11/2023 Acute respiratory failure with hypoxia 4 JAMAR (acute kidney injury) 10/11/2023 Anemia complicating neoplastic disease 4 Anxiety and depression 10/11/2023 Aortic insufficiency 10/11/2023 [...] without long-term current use of insulin 10/11/2023 Current Oncology Plans CENTRAL VENOUS ACCESS ( CVA ) MAINTENANCE / BLOOD DRAW / CATHETER CLEARANCE / DRESSING CHANGE / FLUSH* Plan Start Date:08/02/2024 Plan Provider:Arron Rowley MD Linked Problems Malignant neoplasm of ascend ing colon (CMS/HCC)Acute non-Q wave non-ST elevation myocardial infarction (NSTEMI) ([facility]/HCC) Treatment Medications No medications scheduled. Past Plans No past plan information found. Radiation Treatments * No radiation treatments are documented for this patient in [facility]. Treatments may have been administered in another system.
[2024-09-20 16:20] LABS: Hematocrit 40.6 % (37.0-47.0); Hemoglobin 13.2 g/dl (12.0-16.0); Mean Corpuscular HGB Conc 32.5 g/dl (31.0-35.0); Mean Corpuscular Hemoglobin 29.5 pg (27.0-33.0); Mean Corpuscular Volume 90.8 fL (80.0-98.0); Mean Platelet Volume 9.2 fL (9.4-12.3); Platelet Count 203 X10*3/uL (160-400); Red Blood Count 4.47 X10*6/uL (4.20-5.50); Red Cell Distribution Width 14.1 % (11.0-16.0); White Blood Count 6.3 X10*3/uL (4.8-10.8)
[2024-09-20 16:35] LABS: Albumin Level 3.7 g/dL (3.5-5.0); Anion Gap 13 (12-20); Blood Urea Nitrogen 22 mg/dL (9-16); Calcium 9.2 mg/dL (8.4-10.2); Carbon Dioxide 29 mmol/L (22-29); Chloride 102 mmol/L (96-108); Estimated Glomerular Filt Rate 46; Magnesium 2.1 mg/dL (1.6-2.6); Phosphorus 2.9 mg/dL (2.7-4.5); Potassium 3.6 mmol/L (3.3-5.1); Sodium 140 mmol/L (135-145); Total Protein 7.1 g/dL (6.5-8.0)
[2024-09-20 16:51] LABS: Vitamin D 25-OH Total 36.4 ng/mL (>30)
[2024-09-20 16:52] LABS: Parathyroid Hormone Intact 114.5 pg/mL (8.7-77.1)
== END 2024-09-20 14:10 | disposition home or self-care (01) ==
LOC: HO.HMGCLDS 14:09
PROVIDERS: PCP Internal Medicine; Visit Provider Internal Medicine Nephrology
DX: E11.22 Type 2 diabetes mellitus with diabetic chronic kidney disease (principal); N18.32 Chronic kidney disease, stage 3b; R80.1 Persistent proteinuria, unspecified
CPT/HCPCS: 36415; 80051; 82040; 82306; 82310; 82565; 83735; 83970; 84100; 84155; 84520; 85027

== ENCOUNTER 2024-10-25 13:24 | Outpatient (AMB) | payer MEDICARE, MEDICAID, SELFPAY ==
--- NOTE | 2024-10-25 13:42 | AM.OFFWIN_ITS ---
Intake Vital Signs 10/25/24 13:48 Height 5 ft 4 in BP 120/86 Blood Pressure Location Lt brachial Position Sitting Pulse 67 Pulse Source Pulse Oximeter Pulse Oximetry (%) 99 Oxygen Delivery Method Room Air Intake Visit Reasons: EP-rt hip pain & head vertigo Intake Note: Patient here for vertigo that has been present for about 1 week. Right hip pain and feels like it gets stuck that started about 1 month ago and has been coming and going but last week or so it has been constant. Patient Tobacco Use Status: Former Tobacco user Allergies ibuprofen Allergy (Unknown, Verified 10/25/24 13:48) unknown morphine Allergy (Unknown, Verified 10/25/24 13:48) Unknown Codeine Phosphate Allergy (Unknown, Uncoded 10/25/24 13:48) unknown HPI HPI Comments History of Present Illness Details This is a 74-year-old female who presented to the walk-in clinic today with her daughter with multiple complaints. First, patient reports positional dizziness, which has been going on for the past 3 days. She states she has a history of vertigo but the episodes typically do not last this long. She states her dizziness is worsened with any positional changes or head movement. She denies any facial asymmetry, slurred speech, visual disturbances, or numbness/weakness/paresthesias of her extremities. She denies any recent head trauma/injury. She does report some mild nasal congestion. Second, patient is reporting right posterior hip/low back pain. She states this has been going on for the past several months. She denies any trauma/injury. She feels as though her hip ?locks up? on her while walking and she is unable to move her hip for several seconds. She denies any numbness/weakness/paresthesias radiating into her leg but states the pain does radiate posteriorly into her thigh. PFSH Social History Patient Tobacco Use Status: Former Tobacco user Review of Systems Const All systems reviewed & are unremarkable except as noted in HPI and below Reports no additional complaints Eyes Reports no additional complaints ENT Reports no additional complaints Card Reports no additional complaints Resp Reports no additional complaints GI Reports no additional complaints Reports no additional complaints Musc Reports no additional complaints Skin/Breast Reports system reviewed and no additional complaints, except as documented Neuro Reports no additional complaints Psych Reports no additional complaints Endo Reports no additional complaints Tito/Lymph Reports no additional complaints Aller/Immun Reports no additional complaints Physical Exam Vital Signs: Last Vital Signs Pulse 67 10/25/24 13:48 BP 120/86 10/25/24 13:48 Pulse Ox 99 10/25/24 13:48 Oxygen Delivery Method Room Air 10/25/24 13:48 Const Other: Vital signs reviewed. Constitutional: Non-toxic appearing. No acute distress. Well-developed and well-nourished. HEENT: Normocephalic and atraumatic. Tympanic membranes without erythema, edema, or bulging bilaterally although there is some fluid located behind bilateral TMs. External auditory canals without erythema or edema bilaterally. Skin: Warm and dry. No rashes or lesions noted. Neck: Full and painless range of motion. No cervical lymphadenopathy. Cardio: Regular rate. No lower extremity edema. No JVD. Pulmonary: No respiratory distress. No accessory muscle usage. Gastrointestinal: Soft, non-tender, and non-distended in all 4 quadrants. Musculoskeletal: There is no tenderness to superficial or deep palpation of the right lateral or posterior hip. She states the pain is located deep in her posterior hip near the SI joint on the right side. She has decreased range of motion of the right hip due to pain and limited mobility. Neuro: Alert and oriented x4. Cranial nerves II-XII intact. 5/5 strength of bilateral upper and lower extremities. Sensation intact to face and bilateral upper and lower extremities. No focal deficits appreciated. No pronator drift. No ataxia. Psych: Normal mood and affect. Assessment & Plan Assessment & Plan (1) BPPV (benign paroxysmal positional vertigo): Code(s): H81.10 - Benign paroxysmal vertigo, unspecified ear Qualifiers: Laterality: unspecified laterality Qualified Code(s): H81.10 - Benign paroxysmal vertigo, unspecified ear (2) Right hip pain: Code(s): M25.551 - Pain in right hip Plan This is a 74-year-old female who presented to the walk-in clinic with multiple complaints. First, patient had complained of positional dizziness for the past 3 days. She states his dizziness is worsened with positional changes and had movement. On physical examination, she is neurologically intact without any focal neurological deficits. Her history and physical most consistent with BPPV. She has some fluid behind bilateral tympanic membranes and some nasal congestion, which could be contributing to her BPPV. Patient was given a prescription for p.o. meclizine 25 mg 3 times daily as needed for vertigo and she was given a printout of the Pradeep maneuver to be performed at home. Additionally, she was recommended to use normal saline nasal spray to help with her congestion. She was advised to proceed directly to the emergency room if she were to develop any facial asymmetry, slurred speech, visual disturbances, or numbness/weakness/paresthesias of one extremity. Patient and her daughter verbalized their understanding. Second, patient had complained of atraumatic right posterior hip pain located near the SI joint for the past 2 months. She states she feels as though her hip ?locks up? and she is unable to move her hip for several seconds. She states the pain does occasionally radiate posteriorly into her thigh. An x-ray of the right hip was offered but deferred at this time as patient recently had a CT pelvis at [facility] but I a, unable to review these records/results. Patient is unable to take NSAIDs due to history of chronic kidney disease. Recommended supportive management including rest/activity modification, ice/heat to the area, and PO acetaminophen/tramadol (patient's home medication) as needed for pain. She was given an orthopedics referral for further evaluation and management. She was offered a physical therapy referral but declined at this time. Patient and her daughter were very appreciative of the help. Orders: Referrals Orthopedics Referral M25.551 - Pain in right hip Medications: New meclizine 25 mg PO TID PRN 20 tabs 0RF vertigo Coding Level of Care Code Est Pt Level 3 (92515) Diagnoses Benign paroxysmal positional vertigo, unspecified laterality H81.10 Laterality: unspecified laterality Right hip pain M25.551
[2024-10-25 13:48] VITALS: BP 120/86; PULSE 67; O2SAT 99
--- OUTSIDE RECORDS SUMMARY | 2024-10-25 15:26 | XMS_ITS | Encounter Summary ---
Author Organization [facility] Address [address] [phone] Phone Care Team Providers Care Program Manufacturing Leader Name Role Phone Tani Hernandes MD Primary Care Provider [phone] Encounter Details Date Type Department Care Team (Late st Contact Info) Description 09/25/2024 9:20 AM EST Office Visit [facility] [address] [phone] Elvis Shea MD [address] [phone] Stage 3a chronic kidney disease (HCC) (Primary Dx); Peripheral arterial occlusive disease (HCC); Hypomagnesemia; Hypertension; Dyslipidemia; Diabetes mellitus, not otherwise specified (HCC); Deep venous thrombosis <Unspecified side> (HCC); Abdominal aortic aneurysm without rupture, not otherwise specified (HCC) Social History Tobacco Use Types Packs/Day Years Used Date Smoking Tobacco: Never Assessed Comments Unknown Sex and Gender Information Value Date Recorded Sex Assigned at Not on file Legal Sex Female 8:57 AM EST Gender Identity Not on file Sexual Orientation Not on file documented as of this encounter Last Filed Vital Signs Vital Sign Reading Time Taken Comments Blood Pressure 172/82 09/25/2024 9:19 AM EST Pulse 76 09/25/2024 9:19 AM EST Temperature - - Respiratory Rate - - Oxygen Saturation 96% 09/25/2024 9:19 AM EST Inhaled Oxygen Concentration - - Weight 120 kg (263 lb 12.8 oz) 09/25/2024 9:19 A M EST Height 162.6 cm (5' 4 ) 09/25/2024 9:19 AM EST Body Mass Index 45.28 09/25/2024 9:19 AM EST documented in this encounter Progress Notes * Elvis Shea MD - 09/25/2024 9:20 AM EST Images from the original note were not included. [facility] Office Visit Patient Name: Danuta Bourgeois, Female Date of : 1950, 73 y.o. Date: 09/25/2024 History of Present Illness Danuta Bourgeois is a 73 y.o. female who is here for follow up of CKD STAGE 3 in the backdrop of multiple complicated medical problems inclduing dm, htn, bipolar, thromboembolic disease, afib, paod, aaa and vascular disease. Interim history since the last encounter was reviewed. No acute complaints were voiced. Denied chest pain, flank pain, hematuria, hemoptysis or fevers. All other systems were reviewed and negative. Available lab results were reviewed and discussed. Medication list was reviewed and discussed. Any available out of office blood pressure readings were reviewed and discussed. CV and Renal risk was assessed and discussed. The following portions of the patient's chart were reviewed in this encounter and updated as appropriate: Allergies Meds Problems Med Hx Surg Hx Fam Hx Past Medical History Past Medical History: Diagnosis Date Bipolar disorder (HCC) Chronic kidney disease Deep venous thrombosis (HCC) Depressive disorder Diabetes mellitus without mention of complication, type II or unspecified type, not stated as uncontrolled (HCC) Essential hypertension Hypothyroidism Obesity Other malignant neoplasm of unspecified site (HCC) Peripheral vascular disease (HCC) Pulmonary thrombosis (HCC) Sleep apnea Past Surgical History Past Surgical History: Procedure Laterality Date CHOLECYSTECTOMY 1981 COLON SURGERY Right hemicolectomy with ilectransverse colostomy IR IVC FILTER PLACEMENT 05/2017 Family History Family History Problem Relation Age of Onset Cancer Mother Stroke Father Kidney disease Sister End stage Heart disease Sister CHF Diabetes Sister Hypertension Brother Diabetes Brother Atrial fibrillation Brother Sleep apnea Brother Social History Social History Tobacco Use Smoking status: Not on file Smokeless tobacco: Not on file Substance Use Topics Alcohol use: Not on file Medication List Current Outpatient Medications Medication Sig Dispense Refill amLODIPine (NORVASC) 5 MG tablet Take 1 tablet (5 mg total) by mouth 1 (one) time each day 90 tablet 3 apixaban (Eliquis) 5 MG tablet Take 5 mg by mouth in the morning and 5 mg in the evening. aspirin (ST KARLA) 81 MG EC tablet Take 81 mg by mouth 1 (one) time each day atorvastatin (LIPITOR) 20 MG tablet Take 20 mg by mouth every night Basaglar KwikPen 100 UNIT/ML injection Inject 46 Units under the skin every night Breo Ellipta 100-25 MCG/ACT aerosol powder Inhale 1 puff 1 (one) time each day calcitriol (ROCALTROL) 0.25 MCG capsule TAKE 1 CAPSULE (0.25 MCG TOTAL) BY MOUTH 1 (ONE) TIME EACH DAY 90 capsule 0 carvedilol (COREG) 12.5 MG tablet Take 12.5 mg by mouth in the morning and 12.5 mg in the evening. furosemide (LASIX) 40 MG tablet TAKE 2 TABLETS BY MOUTH IN THE MORNING AND 1 TABLET IN AFTERNOON BYMOUTH gabapentin (NEURONTIN) 800 MG tablet Take 800 mg by mouth in the morning and 800 mg in the evening. insulin NPH, Isophane, (NovoLIN N) 100 UNIT/ML injection Inject under the skin 3 (three) times a day before meals isosorbide mononitrate (IMDUR) 60 MG 24 hr tablet Take 60 mg by mouth 1 (one) time each day in the morning levothyroxine (SYNTHROID, LEVOTHROID) 25 MCG tablet Take 25 mcg by mouth 1 (one) time each day Mounjaro 5 MG/0.5ML solution auto-injector Inject 5 mg under the skin every 7 (seven) days pantoprazole (Protonix) 40 MG EC tablet Take 40 mg by mouth 1 (one) time each day QUEtiapine (SEROquel) 200 MG tablet Take 200 mg by mouth 1 (one) time each day QUEtiapine (SEROquel) 50 MG tablet Take 50 mg by mouth 1 (one) time each day traMADol (ULTRAM) 50 MG tablet Take 50 mg by mouth every 6 (six) hours if needed traZODone (DESYREL) 150 MG tablet Take 150 mg by mouth 1 (one) time each day Dapagliflozin Propanediol (Farxiga) 5 MG tablet Take 5 mg by mouth 1 (one) time each day in the morning 90 tablet 0 glipiZIDE (GLUCOTROL) 5 MG tablet Take 5 mg by mouth 1 (one) time each day (Patient not taking: Reported on 09/25/2024) Lisinopril (ZESTRIL PO) Take 40 mg by mouth 1 (one) time each day (Patient not taking: Reported on 09/25/2024) pregabalin (LYRICA) 75 MG capsule Take 75 mg by mouth in the morning and 75 mg at noon and 75 mg inthe evening. (Patient not taking: Reported on 09/25/2024) sertraline (ZOLOFT) 25 MG tablet Take 25 mg by mouth 1 (one) time each day (Patient not taking: Reported on 09/25/2024) No current facility-administered medications for this visit. Allergy List Allergies Allergen Reactions Codeine Itching and Nausea Ibuprofen Other (see comments) Morphine Oxycodone-Acetaminophen Other reaction(s): up set stomoch Physical Exam BP 172/82 (BP Location: Left upper arm, Patient Position: Sitting) Pulse 76 Ht 5' 4 (1.626 m) Wt 263 lb 12.8 oz (120 kg) SpO2 96% BMI 45.28 kg/m?? Last 3 office BP readings: BP Readings from Last 3 Encounters: 09/25/24 172/82 04/23/24 159/80 08/31/23 138/76 General: Well developed in no acute distress but chronically ill in wheelchair Neuro: alert interactive without delirium Eyes: anicteric ENT: moist membranes, no stridor Cardiovascular: regular rate and rhythm, no rub Pulmonary: no distress or tachypnea Abdomen: soft and nondistended Genitourinary: no suprapubic tenderness or bladder distension to palpation Musculoskeletal: No bony tenderness or deviation Dermatologic: No visible rash on exposed skin Hematologic: no petechiae or ecchymoses on exposed skin Extremities: edema is dependent only Labs Chemistry Lab Units 09/20/24 1611 09/16/24 1314 04/19/24 1603 CREATININE mg/dL 1.15 1.33* 1.54* BUN mg/dL 22* 25 24* POTASSIUM mmol/L 3.6 3.4* 3.9 SODIUM mmol/L 140 137 137 CO2 mmol/L 29 27 25 CHLORIDE mmol/L 102 101 100 ALBUMIN g/dL 3.7 3.5 3.6 EGFR 46 42* 33 WBC AUTO X10*3/uL 6.3 -- 7.9 HEMATOCRIT % 40.6 -- 39.7 HEMOGLOBIN g/dl 13.2 -- 13.0 PLATELETS AUTO X10*3/uL 203 -- 214 Bone Mineral Lab Units 09/20/24 1611 09/16/24 1314 04/19/24 1603 CALCIUM mg/dL 9.2 9.1 9.4 PHOSPHORUS mg/dL 2.9 -- 3.2 ALK PHOS unit/L -- 61 -- ALKALINE PHOSPHATASE U/L -- -- 61 PTH pg/mL 114.5* -- 177.8* VITAMIN D ng/mL 36.4 -- 26.0* Urine Lab Units 04/19/24 1607 PROT/CREAT RATIO UR 0.08 No lab exists for component: IRON SATURATION No lab exists for component: CYCLOSPORITR 2020 [facility] CTA - normal and patent bilateral renal arteries CT enterography 2021 - partially atrophic left kidney (both still > 11 cm in length but renal cortical volume on left is significantly less Assessment & Plan 1. Stage 3a chronic kidney disease (HCC) 2. Peripheral arterial occlusive disease (HCC) 3. Hypomagnesemia 4. Hypertension 5. Dyslipidemia 6. Diabetes mellitus, not otherwise specified (HCC) 7. Deep venous thrombosis <Unspecified side> (HCC) 8. Abdominal aortic aneurysm without rupture, not otherwise specified (HCC) IMPRESSION: CKD STAGE 3B - STABLE 08/2024 - BASELINE CREATININE 1.1-1.4 MG/DL PARTIALLY ATROPHIC KIDNEY SUGGEST PRIOR PRIOR EMBOLIC, INFECTIOUS OR ISCHEMIC EVENT - GIVEN APPEARANCE OF CT IMAGING, I SUSPECT THIS IS SEQUELAE OF PRIOR STONE AND/OR INFECTION DIFFUSE VASCULAR DISEASE INCLUDING PAOD, CAD AND AAA LIFELONG MICROHEMATURIA WITH FAMILY HX OF THAT IN SISTER THAT HAD ESRD LATE IN LIFE HTN - DROPPED TO 115/65 AFTER REST - DUE TO OBESITY, CKD AND HEIKE DM COLON CANCER S/P HEMICOLECTEMY AND FOLFOX CHEMOTHERAPY 2022 THROMBOEMBOLIC DISEASE WITH H/O DVT AND PE -S/P IVC FILTER H/O KIDNEY STONES BIPOLAR HEIKE PAFIB AORTIC INSUFFICIECNY DISCUSSION: She has renal disease with documented anatomic atrophic changes and albuminuria. This is multifactorial She has a FH of esrd from dm in her sister -she seems balanced with mmp and multispecialty care at this point Suggest: -Cont current plan -Optimize sugar and bp control -judicious diuretic use -consisder sglt2 and glp1 agonists for cardiorenal protection -consider rechallenge with acei or arb? -avoid nsaids and nephrotoxins -adjust meds for gfr 45 cc/min at best -rtc 6 mos with full renal labs -she could not reconcile meds for the third time and so I will defer rx to pcp so to prevent polypharmacy -I did create an rx for amlodipine 5 mg tablets today as she was having difficulty cutting the 10 mg in half Orders Placed This Encounter Comprehensive Metabolic Panel Uric Acid Magnesium Phosphorus PTH, Intact Vitamin D 25 Hydroxy CBC and Differential Protein, Total, Random Urine w/Creatinine (Protein/Creat Ratio) amLODIPine (NORVASC) 5 MG tablet Return in about 6 months (around 03/25/2025) for OV with labs 1-2 weeks prior to visit. Elvis Shea MD documented in this encounter Plan of Treatment Upcoming Encounters Date Type Department Care Team (Late st Contact Info) Description 03/25/2025 11:40 AM EDT Office Visit [facility] [address] [phone] Elvis Shea MD [address] [phone] Scheduled Orders Name Type Priority Associated Diagnoses Orde r Schedule Comprehensive Metabolic Panel Lab Routine Stage 3a chronic kidney disease (HCC) Peripheral arterial occlusive disease (HCC) Hypomagnesemia Hypertension Dyslipidemia Diabetes mellitus, not otherwise specified (HCC) Deep venous thrombosis <Unspecified side> (HCC) Abdominal aortic aneurysm without rupture, not otherwise specified (HCC) Expected: 03/25/2025, Expires: 10/25/2025 Uric Acid Lab Routine Stage 3a chronic kidney disease (HCC) Peripheral arterial occlusive disease (HCC) Hypomagnesemia Hypertension Dyslipidemia Diabetes mellitus, not otherwise specified (HCC) Deep venous thrombosis <Unspecified side> (HCC) Abdominal aortic aneurysm without rupture, not otherwise specified (HCC) Expected: 03/25/2025, Expires: 10/25/2025 Magnesium Lab Routine Stage 3a chronic kidney disease (HCC) Peripheral arterial occlusive disease (HCC) Hypomagnesemia Hypertension Dyslipidemia Diabetes mellitus, not otherwise specified (HCC) Deep venous thrombosis <Unspecified side> (HCC) Abdominal aortic aneurysm without rupture, not otherwise specified (HCC) Expected: 03/25/2025, Expires: 10/25/2025 Phosphorus Lab Routine Stage 3a chronic kidney disease (HCC) Peripheral arterial occlusive disease (HCC) Hypomagnesemia Hypertension Dyslipidemia Diabetes mellitus, not otherwise specified (HCC) Deep venous thrombosis <Unspecified side> (HCC) Abdominal aortic aneurysm without rupture, not otherwise specified (HCC) Expected: 03/25/2025, Expires: 10/25/2025 PTH, Intact Lab Routine Stage 3a chronic kidney disease (HCC) Peripheral arterial occlusive disease (HCC) Hypomagnesemia Hypertension Dyslipidemia Diabetes mellitus, not otherwise specified (HCC) Deep venous thrombosis <Unspecified side> (HCC) Abdominal aortic aneurysm without rupture, not otherwise specified (HCC) Expected: 03/25/2025, Expires: 10/25/2025 Vitamin D 25 Hydroxy Lab Routine Stage 3a chronic kidney disease (HCC) Peripheral arterial occlusive disease (HCC) Hypomagnesemia Hypertension Dyslipidemia Diabetes mellitus, not otherwise specified (HCC) Deep venous thrombosis <Unspecified side> (HCC) Abdominal aortic aneurysm without rupture, not otherwise specified (HCC) Expected: 03/25/2025, Expires: 10/25/2025 CBC and Differential Lab Routine Stage 3a chronic kidney disease (HCC) Peripheral arterial occlusive disease (HCC) Hypomagnesemia Hypertension Dyslipidemia Diabetes mellitus, not otherwise specified (HCC) Deep venous thrombosis <Unspecified side> (HCC) Abdominal aortic aneurysm without rupture, not otherwise specified (HCC) Expected: 03/25/2025, Expires: 10/25/2025 Protein, Total, Random Urine w/Creatinine (Protein/Creat Ratio) Lab Routine Stage 3a chronic kidney disease (HCC) Peripheral arterial occlusive disease (HCC) Hypomagnesemia Hypertension Dyslipidemia Diabetes mellitus, not otherwise specified (HCC) Deep venous thrombosis <Unspecified side> (HCC) Abdominal aortic aneurysm without rupture, not otherwise specified (HCC) Expected: 03/25/2025, Expires: 10/25/2025 documented as of this encounter Visit Diagnoses Diagnosis Stage 3a chronic kidney disease (HCC)- Primary Peripheral arterial occlusive disease (HCC) Hypomagnesemia Hypertension Dyslipidemia Diabetes mellitus, not otherwise specified (HCC) Deep venous thrombosis <Unspecified side> (HCC) Abdominal aortic aneurysm without rupture, not otherwise specified (HCC) documented in this encounter Care Teams Program Manufacturing Leader Relationship Specialty Start Date End Date Tani Hernandes MD [address] PCP - General Internal Medicine 09/13/22 documented as of this encounter
--- OUTSIDE RECORDS SUMMARY | 2024-10-25 15:26 | XMS_ITS | Encounter Summary ---
Author Organization [facility] [place] [address] Care Team Providers Care Aircraft Pilot Name Role Phone Tani Hernandes MD Primary Care Provider [phone] Encounter Details Date Type Department Care Team (Late st Contact Info) Description 06/21/2024 12:53 PM EDT Hospital Encounter TH HISTORIC ENCOUNTERS EASTERN CONVERSION ONLY Social History Tobacco Use Types Packs/Day Years Used Date Smoking Tobacco: Former Cigarettes Q uit: 08/28/2017 Smokeless Tobacco: Never Alcohol Use Standard Drinks/Week Comments Not Currently 0 (1 standard drink = 0.6 oz pur e alcohol) Comments Unknown Sex and Gender Information Value [...] Care Team (Late st Contact Info) Description 10/28/2024 1:00 PM EST Appointment [facility] [address] [place] [phone] 11/08/2024 11:45 AM EDT Office Visit [facility] Hematology Oncology [address] [place] [phone] Arron Rowley MD [address] [place] [phone] documented as of this encounter Visit Diagnoses Not on filedocumented in this encounter Care Teams Aircraft Pilot Relationship Specialty Start Date End Date Tani Hernandes MD [address] [place] [phone] PCP - General 09/09/22 documented as of this encounter
--- OUTSIDE RECORDS SUMMARY | 2024-10-25 15:26 | XMS_ITS | Encounter Summary ---
Author Organization [facility] Address [address] [place] [address] Care Team Providers Care Stretcher Drier Operator Name Role Phone Tani Hernandes MD Primary Care Provider [phone] Reason for Referral * Imaging (Routine) - Closed Specialty Diagnoses / Procedures Referred By Contac t Referred To Contact Radiology Diagnoses Malignant neoplasm of ascending colon (CMS/HCC) Procedures CT Abdomen Pelvis w Contrast Arron Rowley MD [address] [place] [phone] Phone: tel: fax: [address] [address] Phone: tel: Referral ID Status Reason Start Date Expiration Date Visits Re quested Visits Authorized [id number] Closed 08/09/2024 08/09/2025 1 1 Reason for Visit * Imaging (Routine) - Closed Specialty Diagnoses / Procedures Referred By Contac t Referred To Contact Radiology Diagnoses Malignant neoplasm of ascending colon (CMS/HCC) Procedures CT Abdomen Pelvis w Contrast Arron Rowley MD [address] [place] [phone] Phone: tel: fax: [address] [address] Phone: tel: Referral ID Status Reason Start Date Expiration Date Visits Re quested Visits Authorized [id number] Closed 08/09/2024 08/09/2025 1 1 Encounter Details Date Type Department Care Team (Latest Contact Info) Description 10/07/2024 3:57 PM EST - 10/07/2024 11:59 PM EST Hospital Encounter [facility] CT Scan [address] [place] [address] Malignant neoplasm of ascending colon (CMS/HCC) Discharge Disposition: Home or Self Care Social [...] PM EST documented as of this encounter Medications at Time of Discharge acetaminophen (TYLENOL) 325 mg tablet TAKE 2 [...] tablet Take by mouth. - Oral fluticasone furoate-vilantero L (Breo Ellipta) 100-25 mcg/dose inhaler TAKE 1 PUFF INHALATION ONCE DAILY X30 DAYS furosemide (LASIX) 20 mg tablet Take 1 tablet (20 mg total) by mouth 2 (two) times a day. - Oral furosemide (LASIX) 40 mg tablet Twice A Day 09/16/2022 gabapentin (NEURONTIN) 800 mg tablet Take 1 tablet (800 mg total) by mouth 3 (three) times a day. - Oral insulin glargine,hum.rec. anlog (Basaglar KwikPen U-100 Insulin) 100 unit/mL (3 mL) injection pen Inject 28 Units under the skin. - Subcutaneous isosorbide mononitrate (IMDUR) 60 mg 24 hr tablet Take 1 Tablet by mouth daily. levothyroxine (SYNTHROID, LEVOTHROID) 25 mcg tablet Take 1 Tablet by mouth daily. lisinopriL (PRINIVIL,ZESTRIL ) 20 mg tablet Take 1 tablet (20 [...] or Self Care documented in this encounter Plan of Treatment Upcoming Encounters Date Type Department Care Team (Late st Contact Info) Description 10/28/2024 1:00 PM EST Appointment [facility] [address] [place] [phone] 11/08/2024 11:45 AM EDT Office Visit [facility] Hematology Oncology [address] [place] [phone] Arron Rowley MD [address] [place] [phone] documented as of this encounter Procedures Procedure Name Priority Date/Time Associated Diagnosis Comments CT ABDOMEN PELVIS W CONTRAST Routine 10/07/2024 5:15 PM EST Malignant neoplasm of ascending colon (CMS/HCC) documented in this encounter Results * CT Abdomen Pelvis w Contrast (10/07/2024 5:15 PM EST) Anatomical Region Laterality Modality Body Computed Tomogra phy 10/08/2024 12:4 3 PM EST Impressions 10/08/2024 1:17 PM EST Previous colonic resection. No convincing regional or distant metastatic disease. ?? -------- FINAL REPORT -------- Dictated By: Kenton Naqvi Dictated Date: 10/08/2024 12:43 ET Assigned Physician: Kenton Naqvi Reviewed and Electronically Signed By: Kenton Naqvi Signed Date: 10/08/2024 13:17 ET Workstation ID: [id number] Transcribed By: Self Edit Transcribed Date: 10/08/2024 12:59 ET Narrative 10/08/2024 1:17 PM EST EXAMINATION: CT ABDOMEN/PELVIS WITH IV CONTRAST CLINICAL INFORMATION: Colon cancer. ??Restaging COMPARISON: Portions of a previous CT 06/16/2023 ?? TECHNIQUE: Multidetector CT. Helical examination of the abdomen and pelvis. Imaging performed after the IV administration of contrast. Reformatting in the coronal and sagittal planes. DLP: 1174 mGy-cm Dose optimization was performed including the use of low-dose iterative reconstruction technique with automatic exposure control based on patient size. Type of contrast: ISOVUE 370 Volume of IV contrast: 90 mL Volume of contrast discarded: 0 mL FINDINGS: Habitus limits the exam. LIVER: The right lobe of the liver measures 17.1 cm. The liver contour is smooth. There is fatty change. ?? No suspicious focal liver lesion. BILIARY TRACT: ??The gallbladder is not demonstrated. There is no biliary dilation. SPLEEN: Normal size. ??No focal lesion. ?? PANCREAS: Normal; no mass or surrounding fluid. ?? ADRENAL GLANDS: Normal; no mass. ?? KIDNEYS: The enhancement is symmetric. No significant dilation of the collecting system. There is a circumscribed small cyst in the upper pole of the left kidney with no suspicious features. ?? GASTROINTESTINAL TRACT: ?I suspect pelvic floor relaxation involving the middle and posterior compartments. There is anastomotic suture in the right upper quadrant. No localized pericolonic fat stranding. There are some sigmoid diverticula. Small bowel interposes between the diaphragm and the right lobe of the liver. No suspicious abnormality of the stomach. There is a fairly circumscribed round soft tissue nodule anteriorly in the left upper quadrant (3/49). This is likely unchanged when compared to 06/16/2023. The position is slightly different but this may have been present in the left midabdomen on 07/20/2022. Possibilities include a splenule. There is a similar but smaller abnormality posterolateral to the above-described nodule. There is at least one additional nodule near the splenic hilum. URINARY BLADDER: ??The bladder is not well distended. No focal mass. PELVIC VISCERA: ??The uterus is not demonstrated and is likely surgically absent. No suspicious adnexal mass or collection. ABDOMINAL WALL: Not completely included. Evidence of previous surgery. No definite bowel hernia. ?? LYMPHOVASCULAR STRUCTURES AND FLUID: There is a focal aneurysm along the right side of the infrarenal abdominal aorta which appears unchanged. The portal vein enhances. There is extensive arterial calcification. There are no measurably enlarged lymph nodes. There is no significant free intraperitoneal fluid. ?? VISUALIZED LOWER CHEST: There is an unchanged solid 0.3 cm nodule in the middle lobe (3/9). ?? There is a 0.2 cm peripheral nodule in the left lower lobe (3/21). I cannot confirm this was present 07/20/2022 but is unchanged since 06/16/2023. MUSCULOSKELETAL: No acute or suspicious osseous abnormality. ??Previous sternotomy. Procedure Note Kenton Naqvi MD - 10/08/2024 EXAMINATION: CT ABDOMEN/PELVIS WITH IV CONTRAST CLINICAL INFORMATION: Colon cancer. Restaging COMPARISON: Portions of a previous CT 06/16/2023 TECHNIQUE: Multidetector CT. Helical examination of the abdomen and pelvis. Imaging performed after the IV administration of contrast. Reformatting in the coronal and sagittal planes. DLP: 1174 mGy-cm Dose optimization was performed including the use of low-dose iterativereconstruction technique with automatic exposure control based on patientsize. Type of contrast: ISOVUE 370 Volume of IV contrast: 90 mL Volume of contrast discarded: 0 mL FINDINGS: Habitus limits the exam. LIVER: The right lobe of the liver measures 17.1 cm. The liver contour issmooth. There is fatty change. No suspicious focal liver lesion. BILIARY TRACT: The gallbladder is not demonstrated. There is no biliarydilation. SPLEEN: Normal size. No focal lesion. PANCREAS: Normal; no mass or surrounding fluid. ADRENAL GLANDS: Normal; no mass. KIDNEYS: The enhancement is symmetric. No significant dilation of thecollecting system. There is a circumscribed small cyst in the upper poleof the left kidney with no suspicious features. GASTROINTESTINAL TRACT: I suspect pelvic floor relaxation involving themiddle and posterior compartments. There is anastomotic suture in theright upper quadrant. No localized pericolonic fat stranding. There aresome sigmoid diverticula. Small bowel interposes between the diaphragm andthe right lobe of the liver. No suspicious abnormality of the stomach. There is a fairly circumscribed round soft tissue nodule anteriorly in theleft upper quadrant (3/49). This is likely unchanged when compared to06/16/2023. The position is slightly different but this may have beenpresent in the left midabdomen on 07/20/2022. Possibilities include asplenule. There is a similar but smaller abnormality posterolateral to theabove-described nodule. There is at least one additional nodule near thesplenic hilum. URINARY BLADDER: The bladder is not well distended. No focal mass. PELVIC VISCERA: The uterus is not demonstrated and is likely surgicallyabsent. No suspicious adnexal mass or collection. ABDOMINAL WALL: Not completely included. Evidence of previous surgery. Nodefinite bowel hernia. LYMPHOVASCULAR STRUCTURES AND FLUID: There is a focal aneurysm along theright side of the infrarenal abdominal aorta which appears unchanged. The portal vein enhances. There is extensive arterial calcification. There are no measurably enlarged lymph nodes. There is no significant freeintraperitoneal fluid. VISUALIZED LOWER CHEST: There is an unchanged solid 0.3 cm nodule in the middle lobe (3/9). There is a 0.2 cm peripheral nodule in the left lower lobe (3/21). Icannot confirm this was present 07/20/2022 but is unchanged since06/16/2023. MUSCULOSKELETAL: No acute or suspicious osseous abnormality. Previoussternotomy. IMPRESSION: Previous colonic resection. No convincing regional or distant metastatic disease. -------- FINAL REPORT -------- Dictated By: Kenton Naqvi Dictated Date: 10/08/2024 12:43 ET Assigned Physician: Kenton Naqvi Reviewed and Electronically Signed By: Kenton Naqvi Signed Date: 10/08/2024 13:17 ET Workstation ID: [id number] Transcribed By: Self Edit Transcribed Date: 10/08/2024 12:59 ET Arron Rowley MD IM[facility] CT PROCEDURES F inal Result documented in this encounter Visit Diagnoses Diagnosis Malignant neoplasm of ascending colon (CMS/HCC) Malignant neoplasm of ascending colon documented in this encounter Administered Medications Inactive Administered Medications - up to 3 most recent administrations Medication Order MAR Action Action Date Dose Rate Site iopamidoL (ISOVUE-370) 370 mg iodine /mL (76 %) injection 100 mL 100 mL, intravenous, Once in imaging, Starting on Mon10/07/24 at 1621, For 1 dose Given 10/07/2024 5:08 PM EST 90 mL sodium chloride 0.9 % flush 10 mL 10 mL, intravenous, Once, On Mon10/07/24 at 1645, For 1 dose Given 10/07/2024 5:08 PM EST 10 mL documented in this encounter Care Teams Stretcher Drier Operator Relationship Specialty Start Date End Date Tani Hernandes MD [address] [place] [phone] PCP - General 09/09/22 documented as of this encounter
--- OUTSIDE RECORDS SUMMARY | 2024-10-25 15:26 | XMS_ITS ---
Author Organization [facility] Address [address] [place] [address] Phone Care Team Providers Care Motion Study Analyst Name Role Phone Tani Hernandes MD Primary Care Provider [phone] Active Problems Problem Noted Date Diagnosed Date [...] non-Q wave non-ST elevation myocardial infarction (NSTEMI) ([facility]) Treatment Medications No medications scheduled. Past Plans No past plan information found. Radiation Treatments * No radiation treatments are documented for this patient in [facility]. Treatments may have been administered in another system.
--- OUTSIDE RECORDS SUMMARY | 2024-10-25 15:26 | XMS_ITS ---
Author Organization [facility] Address [address] [place] [address] Care Team Providers Care String Top Sealer Name Role Phone Tani Hernandes MD Primary Care Provider [phone] Active Problems Problem Noted Date Diagnosed Date [...] treatments are documented for this patient in [facility]. Treatments may have been administered in another system.
--- OUTSIDE RECORDS SUMMARY | 2024-10-25 15:26 | XMS_ITS | Encounter Summary ---
Author Organization [facility] Address [address] [facility] [address] [place] [address] Phone Care Team Providers Care Inhalation Therapist Name Role Phone Tani Hernandes MD Primary Care Provider [phone] Reason for Visit * Reason Comments Med Refill Encounter Details Date Type Department Care Team (Late st Contact Info) Description 09/04/2024 [facility]ill [facility] [address] [place] [phone] Audie Muhammad MD [address] [phone] Social History Tobacco Use Types Packs/Day Years [...] [facility] [address] [facility] [address] [place] [address] Elvis Shea MD [address] [facility] [address] [place] [address] documented as of this encounter Visit Diagnoses Not on filedocumented in this encounter Care Teams Inhalation Therapist Relationship Specialty Start Date End Date Tani Hernandes MD [id number] [place], [place] PCP - General Internal Medicine 09/13/22 documented as of this encounter
--- OUTSIDE RECORDS SUMMARY | 2024-10-25 15:26 | XMS_ITS | Clinical Summary ---
Author Organization [facility] Address [address] [place] [address] Care Team Providers Care Loading Unit Tool Setter Name Role Phone Tani Hernandes MD Primary Care Provider [phone] Allergies Active Allergy Reactions Criticality Noted Date [...] Signed by Arron Garcia MD on 10/07/2022 Family History Medical History Relation Name Comments [...] age to complete this topic Care Teams Loading Unit Tool Setter Relationship Specialty Start Date End Date Tani Hernandes MD [address] [place] [address] PCP - General Internal Medicine 09/09/22
--- OUTSIDE RECORDS SUMMARY | 2024-10-25 15:26 | XMS_ITS | Clinical Summary ---
Author Organization [facility] Address [address] [address] Phone Care Team Providers Care Diesel Motor Mechanic Name Role Phone Tani Hernandes MD Primary Care Provider [phone] Allergies Active Allergy Reactions Criticality Noted Date Comments Codeine Itching,Nausea 08/31/2023 Ibuprofen Other (see comments) 09/15/2022 Morphine 09/15/2022 Oxycodone-Acetaminoph en 09/15/2022 Other reaction(s): up set stomoch Medications atorvastatin (LIPITOR) 20 MG tablet Take 20 mg by mouth every night 03/25/20 20 Active carvedilol (COREG) 12.5 MG tablet Take 12.5 mg by mouth in the morning and 12.5 mg in the evening. 06/29/20 23 Active Breo Ellipta 100-25 MCG/ACT aerosol powder Inhale 1 puff 1 (one) time each day 08/27/20 23 Active furosemide (LASIX) 40 MG tablet TAKE 2 TABLETS BY MOUTH IN THE MORNING AND 1 TABLET IN AFTERNOON BY MOUTH 07/13/20 23 Active gabapentin (NEURONTIN) 800 MG tablet Take 800 mg by mouth in the morning and 800 mg in the evening. 08/14/20 23 Active glipiZIDE (GLUCOTROL) 5 MG tablet Take 5 mg by mouth 1 (one) time each day 05/06/20 21 Active Basaglar KwikPen 100 UNIT/ML injection Inject 46 Units under the skin every night 07/14/20 23 Active isosorbide mononitrate (IMDUR) 60 MG 24 hr tablet Take 60 mg by mouth 1 (one) time each day in the morning 08/27/20 23 Active levothyroxine (SYNTHROID, LEVOTHROID) 25 MCG tablet Take 25 mcg by mouth 1 (one) time each day 06/29/20 23 Active Lisinopril (ZESTRIL PO) Take 40 mg by mouth 1 (one) time each day 08/15/20 12 Active pantoprazole (Protonix) 40 MG EC tablet Take 40 mg by mouth 1 (one) time each day 12/31/19 22 Active pregabalin (LYRICA) 75 MG capsule Take 75 mg by mouth in the morning and 75 mg at noon and 75 mg in the evening. 06/23/20 23 Active QUEtiapine (SEROquel) 200 MG tablet Take 200 mg by mouth 1 (one) time each day 03/25/20 Active QUEtiapine (SEROquel) 50 MG tablet Take 50 mg by mouth 1 (one) time each day 08/23/20 23 Active sertraline (ZOLOFT) 25 MG tablet Take 25 mg by mouth 1 (one) time each day 06/01/20 23 Active traMADol (ULTRAM) 50 MG tablet Take 50 mg by mouth every 6 (six) hours if needed 06/19/20 Active traZODone (DESYREL) 150 MG tablet Take 150 mg by mouth 1 (one) time each day 08/23/20 23 Active apixaban (Eliquis) 5 MG tablet Take 5 mg by mouth in the morning and 5 mg in the evening. 09/28/19 23 Active aspirin (ST KARLA) 81 MG EC tablet Take 81 mg by mouth 1 (one) time each day Active insulin NPH, Isophane, (NovoLIN N) 100 UNIT/ML injection Inject under the skin 3 (three) times a day before meals 07/11/20 23 Active Dapagliflozin Propanediol (Farxiga) 5 MG tablet Take 5 mg by mouth 1 (one) time each day in the morning 90 tablet 04/23/20 24 Active Mounjaro 5 MG/0.5ML solution auto-injector Inject 5 mg under the skin every 7 (seven) days 09/19/19 25 Active amLODIPine (NORVASC) 5 MG tablet Take 1 tablet (5 mg total) by mouth 1 (one) time each day 90 tablet 3 09/25/19 25 026 Active calcitriol (ROCALTROL) 0.25 MCG capsule TAKE 1 CAPSULE (0.25 MCG TOTAL) BY MOUTH 1 (ONE) TIME EACH DAY 90 capsule 10/23/19 25 025 Active calcitriol (ROCALTROL) 0.25 MCG capsule TAKE 1 CAPSULE (0.25 MCG TOTAL) BY MOUTH 1 (ONE) TIME EACH DAY 90 capsule 07/22/20 24 025 Discontinued Active Problems Problem Noted Date Diagnosed Date [...] Encounters Date Type Department Care Team Description 10/21/2024 Refill [facility] [address] [facility] [address] [place] [address] Audie Muhammad MD 09/25/2024 9:20 AM EST Office Visit [facility] [address] [phone] Elvis Shea MD Stage 3a chronic kidney disease (HCC) (Primary Dx); Peripheral arterial occlusive disease (HCC); Hypomagnesemia; Hypertension; Dyslipidemia; Diabetes mellitus, not otherwise specified (HCC); Deep venous thrombosis <Unspecified side> (HCC); Abdominal aortic aneurysm without rupture, not otherwise specified (HCC) 09/20/2024 Orders Only [facility] [address] [phone] Audie Muhammad MD 09/04/2024 Refill [facility] [address] [facility] [address] [place] [phone] Audie Muhammad MD from Last 3 Months [...] Mass Index 45.28 09/25/2024 9:19 AM EST Plan of Treatment Upcoming Encounters Date Type Department Care Team (Late st Contact Info) Description 03/25/2025 11:40 AM EDT Office Visit [facility] [address] [phone] Elvis Shea MD [address] [facility] [address] [place] [phone] Health Maintenance Due Date Last Done Comments Breast Cancer Screening 1950 Pneumococcal Vaccine: 65+ Years (1 of 2 - PCV) 1956 Colorectal Cancer Screening: Annual FOBT 1999 Colorectal Cancer Screening: Colonoscopy 1999 Colorectal Cancer Screening: Sigmoidoscopy 1999 Diabetes: Hemoglobin A1C 08/31/2023 Diabetes: Ophthalmology Exam 08/31/2023 Diabetes: Pedal Pulse Checked 08/31/2023 Diabetes: Sensory Foot Exam 08/31/2023 Diabetes: Visual Foot Exam 08/31/2023 Influenza Vaccine (#1) 2024 8, 08/06/2007 Hepatitis B Vaccine Aged Out No longe r eligible based on patient's age to complete this topic Procedures Procedure Name Priority Date/Time Associated Diagnosis Comments PTH, INTACT (HC) Routine 09/20/2024 4:11 PM EST VITAMIN D 25 HYDROXY Routine 09/20/2024 4:11 PM EST ALBUMIN Routine 09/20/2024 4:11 PM EST TOTAL PROTEIN Routine 09/20/2024 4:11 PM EST MAGNESIUM Routine 09/20/2024 4:11 PM EST PHOSPHATE ( PHOSPHORUS) Routine 09/20/2024 4:11 PM EST CALCIUM Routine 09/20/2024 4:11 PM EST CREATININE, BLOOD Routine 09/20/2024 4:1 1 PM EST BUN Routine 09/20/2024 4:11 PM EST ELECTROLYTE PANEL Routine 09/20/2024 4:1 1 PM EST CBC Routine 09/20/2024 4:11 PM EST from Last 3 Months Results * Total Protein (09/20/2024 4:11 PM EST) Total Protein 7.1 6.5 - 8.0 g/dL See order comments 09/20/2024 4:11 PM EST 09/20/2024 4:11 PM EST us Audie Muhammad MD LAB [id number] SOLICITED RESULTS Final Result LAURA See order comments [place] [address] * Creatinine (09/20/2024 4:11 PM EST) Creatinine Serum 1.15 0.5 - 1.4 mg/dL See order comments eGFR 46 See order comments Comment: Chronic Kidney Disease: ??Estimated GFR < 60 mL/min/1.73m2 Severe Kidney Disease: ??Estimated GFR < 15 mL/min/1.73m2 09/20/2024 4:11 PM EST 09/20/2024 4:11 PM EST Audie Muhammad MD LAB BLOOD ORDERABLES Final Re sult Performing Organization Address City/[facility]/ZIP Co de Phone Number LAURA See order comments [place] [address] * (ABNORMAL) PTH, Intact (09/20/2024 4:11 PM EST) Parathyroid Hormone, Intact 114.5(H) 8.7 - 77.1 pg/mL See order comments 09/20/2024 4:11 PM EST 09/20/2024 4:11 PM EST Audie Muhammad MD LAB [id number] SOLICITED RESULTS Final Result Performing Organization Address [facility] de Phone Number LAURA See order comments [place] [address] * Vitamin D 25 Hydroxy (09/20/2024 4:11 PM EST) Vitamin D, 25-Hydroxy 36.4 >30 ng/mL See order comments Comment: Health Based Reference Values* < 20 ??ng/mL ??Deficient 20-30 ng/mL ??Insufficient > 30 ??ng/mL ??Sufficient *Kiana TREVIZO. N Engl J Med. 2007;357:266-280 Care must be taken in interpreting Vitamin D results from different laboratories and methodologies. ??Published data demonstrated that results from patients undergoing hemodialysis may show a negative bias when tested with various automated 25-OH vitamin D assays when compared to LC-MS/MS. When testing samples from patients whose predominant form of Vitamin D is Vitamin D2, such as patients receiving Vitamin D2 supplementation, results that are subtherapeutic should be confirmed with another method such as LC-MS/MS. 09/20/2024 4:11 PM EST 09/20/2024 4:11 PM EST us Audie Muhammad MD LAB BLOOD ORDERABLES Final Re sult Performing Organization Address [facility] Co de Phone Number [place] See order comments [place] [address] * (ABNORMAL) CBC (09/20/2024 4:11 PM EST) WBC 6.3 4.8 - 10.8 X10*3/uL See order comments RBC 4.47 4.20 - 5.50 X10*6/uL See order comments Hgb 13.2 12.0 - 16.0 g/dl See order comments Hematocrit 40.6 37.0 - 47.0 % See order comments MCV 90.8 80.0 - 98.0 fL See order comments MCH 29.5 27.0 - 33.0 pg See order comments MCHC 32.5 31.0 - 35.0 g/dl See order comments RDW 14.1 11.0 - 16.0 % See order comments Platelets 203 160 - 400 X10*3/uL See order comments MPV 9.2(L) 9.4 - 12.3 fL See order comments nRBC Count 0.0 0.0 - 0.2 /100WBC See order comments NRBC Absolute 0.000 0.0 - 0.012 X10*3/uL See order comments 09/20/2024 4:11 PM EST 09/20/2024 4:11 PM EST us Audie Muhammad MD LAB BLOOD ORDERABLES Final Re sult Performing Organization Address [facility] Co de Phone Number [place] See order comments [place] [address] * (ABNORMAL) BUN (09/20/2024 4:11 PM EST) BUN 22(H) 9 - 16 mg/dL See order comments 09/20/2024 4:11 PM EST 09/20/2024 4:11 PM EST us Audie Muhammad MD LAB BLOOD ORDERABLES Final Re sult Performing Organization Address [facility] Phone Number [place] See order comments [place] [address] * Phosphorus (09/20/2024 4:11 PM EST) Phosphorus, Serum 2.9 2.7 - 4.5 mg/dL See order comments 09/20/2024 4:11 PM EST 09/20/2024 4:11 PM EST us Audie Muhammad MD LAB BLOOD ORDERABLES Final Re sult Performing Organization Address [facility] Phone Number [place] See order comments [place] [address] * Magnesium (09/20/2024 4:11 PM EST) Magnesium 2.1 1.6 - 2.6 mg/dL See order comments 09/20/2024 4:11 PM EST 09/20/2024 4:11 PM EST us Audie Muhammad MD LAB BLOOD ORDERABLES Final Re sult Performing Organization Address [facility] Phone Number [place] See order comments [place] [address] * Calcium (09/20/2024 4:11 PM EST) Calcium 9.2 8.4 - 10.2 mg/dL See order comments 09/20/2024 4:11 PM EST 09/20/2024 4:11 PM EST us Audie Muhammad MD LAB BLOOD ORDERABLES Final Re sult Performing Organization Address [facility] Phone Number [place] See order comments [place] [address] * Albumin (09/20/2024 4:11 PM EST) Albumin 3.7 3.5 - 5.0 g/dL See order comments 09/20/2024 4:11 PM EST 09/20/2024 4:11 PM EST Audie Muhammad MD LAB BLOOD ORDERABLES Final Re sult [place] See order comments [place] [address] * Electrolyte panel (09/20/2024 4:11 PM EST) Sodium 140 135 - 145 mmol/L See order comments Potassium 3.6 3.3 - 5.1 mmol/L See order comments Chloride 102 96 - 108 mmol/L See order comments Bicarbonate (CO2) 29 22 - 29 mmol/L See order comments Anion Gap 13 12 - 20 See order comments 09/20/2024 4:11 PM EST 09/20/2024 4:11 PM EST Audie Muhammad MD LAB BLOOD ORDERABLES Final Re sult [place] See order comments [place] [address] from Last 3 Months Insurance [place] Care Teams Diesel Motor Mechanic Relationship Specialty Start Date End Date Tani Hernandes [facility] [address] [place], [place] PCP - General Internal Medicine 09/13/22
--- OUTSIDE RECORDS SUMMARY | 2024-10-25 15:26 | XMS_ITS | Encounter Summary ---
Author Organization [facility] Address [address] [facility] [address] [place] [address] Phone Care Team Providers Care Outfitter Cabin Name Role Phone Tani Hernandes MD Primary Care Provider [phone] Reason for Visit * Reason Comments Med Refill Encounter Details Date Type Department Care Team (Late st Contact Info) Description 10/21/2024 [facility] [address] [place] [phone] Audie Muhammad MD [address] [phone] Social History Tobacco Use Types Packs/Day Years [...] [facility] [address] [facility] [address] [place] [address] Elvis Shea MD [address] [facility] [address] [place] [address] documented as of this encounter Visit Diagnoses Not on filedocumented in this encounter Care Teams Outfitter Cabin Relationship Specialty Start Date End Date Tani Hernandes MD [place] [id number] [place], [place] PCP - General Internal Medicine 09/13/22 documented as of this encounter
--- OUTSIDE RECORDS SUMMARY | 2024-10-25 15:26 | XMS_ITS | Encounter Summary ---
Author Organization [facility] Address [address] [place] [address] Care Team Providers Care Muck Boss Name Role Phone Tani Hernandes MD Primary Care Provider [phone] Encounter Details Date Type Department Care Team Description 11/01/2022 Social Work [facility] [address] [place] [address] Jefe Neely, [facility] Social History Tobacco Use Types Packs/Day Years [...] on filedocumented in this encounter Care Teams Muck Boss Relationship Specialty Start Date End Date Tani Hernandes MD [address] [place] [address] PCP - General Internal Medicine 09/09/22 documented as of this encounter
--- OUTSIDE RECORDS SUMMARY | 2024-10-25 15:26 | XMS_ITS | Clinical Summary ---
Author Organization [facility] Address [address] [place] [address] Phone Care Team Providers Care Photoengraving Machine Operator/Tender Name Role Phone Tani Hernandes MD Primary Care Provider [phone] Allergies Active Allergy Reactions Criticality Noted Date Comments Codeine 10/04/2022 Morphine 10/04/2022 Oxycodone-Acetaminophen 10/04/2022 Medications amitriptyline (ELAVIL) 25 mg tablet Take 1 Tablet by mouth at bedtime. Active amLODIPine (NORVASC) 2.5 mg tablet Daily Active atorvastatin (LIPITOR) 20 mg tablet Take 1 Tablet by mouth daily. Active carvediloL (COREG) 12.5 mg tablet Take 1 Tablet by mouth 2 times daily (with meals). Active furosemide (LASIX) 40 mg tablet Twice A Day Active isosorbide mononitrate (IMDUR) 60 mg 24 [...] needed for wheezing. - Inhalation Active fluticasone furoate-vilante roL (Breo Ellipta) 100-25 mcg/dose inhaler TAKE 1 [...] times a day. - Oral Active insulin glargine,hum.re c.anlog (Basaglar KwikPen U-100 Insulin) 100 unit/mL (3 mL) injection pen Inject 28 Units under the skin. - Subcutaneous Active lisinopriL (PRINIVIL,ZESTR IL) 20 mg tablet Take 1 tablet (20 [...] Encounters Date Type Department Care Team Description 10/07/2024 3:57 PM EST - 10/07/2024 11:59 PM EST Hospital Encounter [facility] CT Scan [address] [place] [phone] Malignant neoplasm of ascending colon (CMS/HCC) Discharge Disposition: Home or Self Care 09/16/2024 12:59 PM EST - 09/16/2024 11:59 PM EST Hospital Encounter [facility] [address] [place] [phone] Malignant neoplasm of ascending colon (CMS/HCC); Acute non-Q wave non-ST elevation myocardial infarction (NSTEMI) ([facility]/HCC) Discharge Disposition: Home or Self Care 08/09/2024 3:15 PM EST Office Visit [facility] Hematology Oncology [address] [place] [phone] Arron Portillo MD Malignant neoplasm of ascending colon (CMS/HCC) (Primary Dx); Anemia complicating neoplastic disease; Anxiety and depression; Drug-induced peripheral neuropathy (CMS/HCC); Chronic midline low back pain without sciatica 08/02/2024 12:59 PM EST - 08/02/2024 11:59 PM EST Hospital Encounter [facility] [address] [place] [phone] Malignant neoplasm of ascending colon (CMS/HCC) (Primary Dx); Acute non-Q wave non-ST elevation myocardial infarction (NSTEMI) ([facility]/HCC) Discharge Disposition: Home or Self Care from Last 3 Months Surgical History Surgery [...] Orientation Straight 09/16/2024 12 :58 PM EST Obstetrics History Last Filed Vital Signs Vital [...] Info) Description 10/28/2024 1:00 PM EST Appointment [facility] [address] [phone] 11/08/2024 11:45 AM EDT Office Visit [facility] Hematology Oncology [address] [place] [phone] Arron Rowley MD [address] [place] [phone] Health Maintenance Due Date Last Done Comments Breast Cancer Screening 1950 Diabetes: Annual Foot Exam 1960 Diabetes: Annual Retina Eye Exam 1960 RSV Immunization Patients 60+ Years Old (1 - Risk 60-74 years 1-dose series) 2010 Pneumococcal Vaccine: 50+ Years (2 of 2 - PPSV23) 05/30/2018 04/04/2018 Zoster Vaccines (2 of 2) 05/22/2020 03/27/2020, 0708/2019 Cholesterol Screening (Lipid Panel) 07/26/2022 Colorectal Cancer Screening: Colonoscopy 07/26/2022 Depression Screening 07/26/2022 Falls Risk Assessment 07/26/2022 Hepatitis C Screening 07/26/2022 Osteoporosis Screening (Bone Density Screening) 07/26/2022 Social Influencers of Health Screening 07/26/2022 Diabetes: Annual Urine Albumin-Creatinine Ratio (uACR) 10/12/2023 Diabetes: Blood Sugar Control Test (HGBA1C) 10/12/2023 COVID-19 Vaccine ( season) 2024 09/15/2021, 12/14/2020, 11/16/2020 Medicare Annual Wellness Visit 06/06/2024 06/06/2023 Diabetes: Annual GFR (Glomerular Filtration Rate) 09/16/2025 09/16/2024, 06/21/2024, 04/19/2024, Additional history exists Hypertension/CHF/CAD Annual BMP Blood Test 09/16/2025 09/16/2024, 06/21/2024, 04/19/2024, Additional history exists DTaP,Tdap,and Td Vaccines (3 - Td or Tdap) 10/04/2031 10/04/2021, 05/22/2008 Influenza Vaccine Completed 09/20/2024, , 06/17/2022, Additional history exists HIB Vaccines Aged Out No longer eligi [...] patient's age to complete this topic Meningococcal B Vacine Aged Out No lo nger eligible based on patient's age to complete [...] EST Malignant neoplasm of ascending colon (CMS/HCC) CBC WITH AUTO DIFFERENTIAL Routine 09/16/2024 1:14 [...] wave non-ST elevation myocardial infarction (NSTEMI) (CMS/HCC) from Last 3 Months Results * CT Abdomen Pelvis w Contrast [...] Signed Date: 10/08/2024 13:17 ET Workstation ID: [id number] Transcribed By: Self Edit Transcribed Date: 10/08/2024 [...] Signed Date: 10/08/2024 13:17 ET Workstation ID: [id number] Transcribed By: Self Edit Transcribed Date: 10/08/2024 12:59 ET us Subramony Amrik ARIZMENDI IM CT PROCEDURES F inal Result * (ABNORMAL) CBC auto differential (09/16/2024 1:14 PM EST) WBC 6.8 4.8 - 10.8 K/mcL LAB HEMETOLOGY METHOD 09/16/2024 2:20 PM EST [facility] RBC 4.20 3.80 - 4.80 M/mcL LAB HEMETOLOGY METHOD 09/16/2024 2:20 PM EST [facility] Hemoglobin 12.5 11.5 - 16.0 g/dL LAB HEMETOLOGY METHOD 09/16/2024 2:20 PM [facility] Hematocrit 38.7 35.0 - 47.0 % LAB HEMETOLOGY METHOD 09/16/2024 2:20 PM [facility] MCV 92.1 79.0 - 98.0 FL LAB HEMETOLOGY METHOD 09/16/2024 2:20 PM [facility] MCH 29.8 27.0 - 32.0 pcg LAB HEMETOLOGY METHOD 09/16/2024 2:20 PM [facility] MCHC 32.3 32.0 - 37.0 g/dL LAB HEMETOLOGY METHOD 09/16/2024 2:20 PM [facility] RDW 14.2 11.0 - 15.0 % LAB HEMETOLOGY METHOD 09/16/2024 2:20 PM [facility] Platelets 219 130 - 400 K/mcL LAB HEMETOLOGY METHOD 09/16/2024 2:20 PM [facility] MPV 9.7 7.0 - 11.0 FL LAB HEMETOLOGY METHOD 09/16/2024 2:20 PM [facility] NRBC 0.0 <1.0 % LAB HEMETOLOGY METHOD 09/16/2024 2:20 PM [facility] NRBC Absolute 0.00 <0.10 K/mcL LAB HEMETOLOGY METHOD 09/16/2024 2:20 PM [facility] Neutrophils Relative 76.1 % LAB HEMETOLOGY METHOD 09/16/2024 2:20 PM [facility] Lymphocytes Relative 14.1 % LAB HEMETOLOGY METHOD 09/16/2024 2:20 PM [facility] Monocytes Relative 7.0 % LAB HEMETOLOGY METHOD 09/16/2024 2:20 PM [facility] Eosinophils Relative 1.8 % LAB HEMETOLOGY METHOD 09/16/2024 2:20 PM EST [facility] Basophils Relative 0.6 % LAB HEMETOLOGY METHOD 09/16/2024 2:20 PM EST [facility] Immature Granulocytes Relative 0.4 % LAB HEMETOLOGY METHOD 09/16/2024 2:20 PM EST [facility] Neutrophils Absolute 5.15 1.50 - 7.00 K/mcL LAB HEMETOLOGY METHOD 09/16/2024 2:20 PM EST [facility] Lymphocytes Absolute 0.95(L) 1.00 - 5.00 K/mcL LAB HEMETOLOGY METHOD 09/16/2024 2:20 PM EST [facility] Monocytes Absolute 0.47 0.20 - 1.00 K/mcL LAB HEMETOLOGY METHOD 09/16/2024 2:20 PM EST [facility] Eosinophils Absolute 0.12 0.00 - 0.50 K/mcL LAB HEMETOLOGY METHOD 09/16/2024 2:20 PM EST [facility] Basophils Absolute 0.04 0.00 - 0.20 K/mcL LAB HEMETOLOGY METHOD 09/16/2024 2:20 PM EST [facility] Immature Granulocytes Absolute 0.03 0.00 - 0.03 K/mcL LAB HEMETOLOGY METHOD 09/16/2024 2:20 PM EST [facility] Blood Blood sample taken from central line / Unknown Existing Catheter / Unknown 09/16/2024 1:14 PM EST 09/16/2024 2:02 PM EST us Subramkj Rowley MD LAB BLOOD ORDERABLE S Final Result [facility] [address] [place] [address], * CEA (09/16/2024 1:14 PM EST) CEA 2.4 0.0 - 5.0 ng/mL LAB CHEMISTRY METHOD 09/16/2024 3:06 PM [facility] Blood Blood sample taken from central line / Unknown Existing Catheter / Unknown 09/16/2024 1:14 PM EST 09/16/2024 2:02 PM EST [facility] - 09/16/2024 3:06 PM EST The Siemens Advia Centaur Chemiluminescent Immunoassay is used. Results obtained with different assay methods or kits cannot be used interchangeably. Results cannot be interpreted as absolute evidence of the presence or absence of malignant disease. us Arron Rowley MD LAB BLOOD ORDERABLE S Final Result [facility] [address] [place] [address], [place] [phone] * (ABNORMAL) Comprehensive metabolic panel (09/16/2024 1:14 PM EST) Sodium 137 133 - 145 mmol/L LAB CHEMISTRY METHOD 09/16/2024 3:02 PM [facility] Potassium 3.4(L) 3.5 - 5.5 mmol/L LAB CHEMISTRY METHOD 09/16/2024 3:02 PM [facility] Chloride 101 96 - 110 mmol/L LAB CHEMISTRY METHOD 09/16/2024 3:02 PM [facility] CO2 27 21 - 32 mmol/L LAB CHEMISTRY METHOD 09/16/2024 3:02 PM [facility] Anion Gap 9 3 - 11 LAB CHEMISTRY METHOD 09/16/2024 3:02 PM [facility] Glucose 154(H) 70 - 100 mg/dL LAB CHEMISTRY METHOD 09/16/2024 3:02 PM [facility] BUN 25 5 - 25 mg/dL LAB CHEMISTRY METHOD 09/16/2024 3:02 PM [facility] Creatinine 1.33(H) 0.50 - 1.10 mg/dL LAB CHEMISTRY METHOD 09/16/2024 3:02 PM [facility] eGFR 42(L) >=60 mL/min/1. 73m2 LAB CHEMISTRY METHOD 09/16/2024 3:02 PM [facility] Comment:Calculation based on the??Chronic Kidney Disease Epidemiology Collaboration (CKD-EPI) equation refit??without adjustment for race. BUN/Creatinine Ratio 18.8 LAB CHEMISTRY METHOD 09/16/2024 3:02 PM [facility] Calcium 9.1 8.5 - 10.5 mg/dL LAB CHEMISTRY METHOD 09/16/2024 3:02 PM [facility] AST (SGOT) 25 10 - 42 unit/L LAB CHEMISTRY METHOD 09/16/2024 3:02 PM [facility] ALT (SGPT) 28 10 - 60 unit/L LAB CHEMISTRY METHOD 09/16/2024 3:02 PM [facility] Alkaline Phosphatase 61 42 - 121 unit/L LAB CHEMISTRY METHOD 09/16/2024 3:02 PM [facility] Total Protein 6.5 6.0 - 8.0 g/dL LAB CHEMISTRY METHOD 09/16/2024 3:02 PM [facility] Albumin 3.5 3.2 - 5.0 g/dL LAB CHEMISTRY METHOD 09/16/2024 3:02 PM [facility] Total Bilirubin 0.5 0.0 - 1.4 mg/dL LAB CHEMISTRY METHOD 09/16/2024 3:02 PM [facility] Blood Blood sample taken from central line / Unknown Existing Catheter / Unknown 09/16/2024 1:14 PM EST 09/16/2024 2:02 PM EST us Arron Rowley MD LAB BLOOD ORDERABLE S Final Result [facility] [address] [place] [address], [place] [phone] from Last 3 Months Insurance MEDICARE [place]ICAID - [place] Care Teams Photoengraving Machine Operator/Tender Relationship Specialty Start Date End Date Tani Hernandes MD [address] [place] [phone] PCP - General 09/09/22
== END 2024-10-25 14:52 | disposition home or self-care (01) ==
PROVIDERS: PCP Internal Medicine; Visit Provider Physician Assistant Medical
DX: H81.10 Benign paroxysmal vertigo, unspecified ear (principal); M25.551 Pain in right hip

== ENCOUNTER → 2024-10-25 13:24 | Outpatient (BNVA) | payer MEDICARE, MEDICAID, SELFPAY | PROVIDERS: PCP Internal Medicine | DX: H81.10 Benign paroxysmal vertigo, unspecified ear (principal); M25.551 Pain in right hip | CPT/HCPCS: 99212 ==

== ENCOUNTER 2025-03-21 11:53 | Outpatient (REF) | payer MEDICARE, MEDICAID, SELFPAY ==
--- OUTSIDE RECORDS SUMMARY | 2025-03-21 11:56 | XMS_ITS | Encounter Summary ---
Author Organization [facility] Address [address] [place] [address] Care Team Providers Care Employment Office Clerk Name Role Phone Tani Hernandes MD Primary Care Provider [phone] Encounter Details Date Type Department Care Team Description 11/01/2022 Social Work [facility] Oncology Services [address] [place] [address] Jefe Neely, [place] [facility] [place] Social History Tobacco Use Types Packs/Day Years [...] on filedocumented in this encounter Care Teams Employment Office Clerk Relationship Specialty Start Date End Date Tani Hernandes MD [address] [place] [address] PCP - General Internal Medicine 09/09/22 documented as of this encounter
--- OUTSIDE RECORDS SUMMARY | 2025-03-21 11:56 | XMS_ITS | Encounter Summary ---
Author Organization [facility] Address [address] [facility] [address] [place] [address] Phone Care Team Providers Care Managing Principal Name Role Phone Tani Hernandes MD Primary Care Provider [phone] Reason for Visit * Reason Comments Med Refill Encounter Details Date Type Department Care Team (Late st Contact Info) Description 09/04/2024 Refill [facility] [address] [place] [address] Audie Muhammad MD [address] [address] Social History Tobacco Use Types Packs/Day Years [...] Team (Late st Contact Info) Description 03/25/2025 Orders Only [facility] [address] [facility] [address] [place] [address] Elvis Shea MD [address] [facility] [address] [place] [address] Stage 3a chronic kidney disease (HCC); Peripheral arterial occlusive disease (HCC); Hypomagnesemia; Hypertension; Dyslipidemia; Diabetes mellitus, not otherwise specified (HCC); Deep venous thrombosis <Unspecified side> (HCC); Abdominal aortic aneurysm without rupture, not otherwise specified (HCC) 03/25/2025 11:40 AM EDT Office Visit [facility] [address] [address] Elvis Shea MD [address] [address] documented as of this encounter Visit Diagnoses Not on filedocumented in this encounter Care Teams Managing Principal Relationship Specialty Start Date End Date Tani Hernandes MD [facility] [address] [place], [place] PCP - General Internal Medicine 09/13/22 documented as of this encounter
[2025-03-21 12:58] LABS: MANUAL DIFF FLAG NO
[2025-03-21 13:09] LABS: Hematocrit 39.0 % (37.0-47.0); Hemoglobin 12.7 g/dl (12.0-16.0); Imm Gran Abs Auto 0.06 X10*3/uL (0.00-0.03); Imm Gran Pct Auto 0.8 % (0.0-0.4); Lymphocytes Absolute Auto 1.2 X10*3/uL (1.2-4.9); Mean Corpuscular HGB Conc 32.6 g/dl (31.0-35.0); Mean Corpuscular Hemoglobin 30.2 pg (27.0-33.0); Mean Corpuscular Volume 92.6 fL (80.0-98.0); NRBC Abs Auto 0.000 X10*3/uL (0.0-0.012); NRBC Pct Auto 0.0 /100WBC (0.0-0.2); Platelet Count 212 X10*3/uL (160-400); Red Blood Count 4.21 X10*6/uL (4.20-5.50); White Blood Count 7.9 X10*3/uL (4.8-10.8)
[2025-03-21 13:35] LABS: Alanine Aminotransferase 19 U/L (0-31); Albumin Level 3.7 g/dL (3.5-5.0); Alkaline Phosphatase 59 U/L (39-117); Anion Gap 13 (12-20); Aspartate Amino Transferase 28 U/L (5-31); Blood Urea Nitrogen 24 mg/dL (9-16); Calcium 8.9 mg/dL (8.4-10.2); Carbon Dioxide 27 mmol/L (22-29); Chloride 102 mmol/L (96-108); Estimated Glomerular Filt Rate 38; Magnesium 2.1 mg/dL (1.6-2.6); Potassium 3.9 mmol/L (3.3-5.1); Sodium 138 mmol/L (135-145); Total Protein 6.6 g/dL (6.5-8.0); Uric Acid 7.1 mg/dL (2.4-5.7)
[2025-03-21 13:38] LABS: Protein/Creatinine Ratio, Ur 0.08 (<0.2); Total Protein Urine Random 9 mg/dL (<12)
[2025-03-21 14:07] LABS: Parathyroid Hormone Intact 114.4 pg/mL (8.7-77.1)
== END 2025-03-21 11:54 | disposition home or self-care (01) ==
LOC: HO.HMGCLDS 11:53
PROVIDERS: PCP Internal Medicine; Visit Provider Internal Medicine Nephrology
DX: I12.9 Hypertensive chronic kidney disease with stage 1 through stage 4 chronic kidney disease, or unspecified chronic kidney disease (principal); E11.22 Type 2 diabetes mellitus with diabetic chronic kidney disease; N18.31 Chronic kidney disease, stage 3a; E83.42 Hypomagnesemia; E78.5 Hyperlipidemia, unspecified; I82.409 Acute embolism and thrombosis of unspecified deep veins of unspecified lower extremity; I71.40 Abdominal aortic aneurysm, without rupture, unspecified; I77.9 Disorder of arteries and arterioles, unspecified
CPT/HCPCS: 36415; 80053; 82306; 82570; 83735; 83970; 84100; 84156; 84550; 85025

== ENCOUNTER 2025-06-10 13:20 | Outpatient (REF) | payer MEDICARE, MEDICAID, SELFPAY ==
--- OUTSIDE RECORDS SUMMARY | 2024-06-21 12:53 | XMS_ITS | Encounter Summary ---
Author Organization [facility] [place] [address] Care Team Providers Care Study Manager Name Role Phone Tani Hernandes MD Primary Care Provider [phone] Encounter Details Date Type Department Care Team (Late st Contact Info) Description 06/21/2024 12:53 PM EDT Hospital Encounter TH HISTORIC ENCOUNTERS EASTERN CONVERSION ONLY Social History Tobacco Use Types Packs/Day Years Used Date Smoking Tobacco: Former Cigarettes Q uit: 08/28/2017 Smokeless Tobacco: Never Alcohol [...] Care Team (Late st Contact Info) Description 06/23/2025 1:[address] [facility] Infusion Center [address] [place] [phone] 11/07/2025 2:15 PM EDT Office Visit [facility] Hematology Oncology [address] [place] [phone] Arron Rowley MD [address] [place] [phone] documented as of this encounter Visit Diagnoses Not on filedocumented in this encounter Care Teams Study Manager Relationship Specialty Start Date End Date Tani Hernandes MD [address] [place] [address] PCP - General 09/09/22 documented as of this encounter
--- OUTSIDE RECORDS SUMMARY | 2025-06-10 16:07 | XMS_ITS ---
Author Organization [facility] Address [address] [place] [id number] Care Team Providers Care Head Of Commission Department Name Role Phone Tani Hernandes MD Primary Care Provider [phone] Active Problems Problem Noted Date Diagnosed Date [...] treatments are documented for this patient in [facility]. Treatments may have been administered in another system.
--- OUTSIDE RECORDS SUMMARY | 2025-06-10 16:07 | XMS_ITS ---
Author Organization [facility] Address [address] [place] [address] Phone Care Team Providers Care Oncology Social Work Name Role Phone Tani Hernandes MD Primary Care Provider [phone] Active Problems Problem Noted Date Diagnosed Date Acute non-Q wave non-ST elev ation myocardial infarction (NSTEMI) [place] V28) 10/11/2023 Acute respiratory failure wi th hypoxia ([facility], [facility]) 10/11/2023 JAMAR (acute kidney injury) ([facility]) 10/11/19 24 Anemia complicating neoplastic disease Anxiety and depression 10/11/2023 Aortic insufficiency 10/11/2023 Chronic midline low back pain without sciatica 0 10/11/2023 COVID-19 10/11/2023 Diastolic CHF ([facility], [facility] V28) 024 Drug-induced peripheral neuropathy ([facility]) 10/11/2023 DVT (deep venous thrombosis) ([facility] V[facility], [facility] V[facility]) 10/11/2023 Hypertension 10/11/2023 Hypomagnesemia 10/11/2023 Malignant neoplasm of ascend ing colon ([facility], [facility] V28) 10/11/2023 Assessment & Plan (12/13/2024 5:20 PM EDT): Recent colonoscopy 09/2023 Due to to 2025 Multiple subsegmental pulmon manjeet emboli without acute cor pulmonale ([facility], [facility]) 10/11/2023 Paroxysmal atrial fibrillation ([facility], [facility] V[facility]) 10/11/2023 SBO (small bowel obstruction) ([facility], [facility] V28) 10/11/2023 Type 2 diabetes mellitus wit h stage 3a chronic kidney disease, without long-term current use of insulin ([facility], [facility]) 10/11/2023 Current Treatment and Therapy Plans CENTRAL VENOUS ACCESS ( CVA ) MAINTENANCE / BLOOD DRAW / CATHETER CLEARANCE / DRESSING CHANGE / FLUSH* Plan Start Date:08/02/2024 Plan Provider:Arron Rowley MD Linked Problems Malignant neoplasm of ascend ing colon ([facility], [facility] V[facility])Acute non-Q wave non-ST elevation myocardial infarction (NSTEMI) ([facility], [facility]) Treatment Medications No medications scheduled. Past Treatment and Therapy Plans No past plan information found.
--- OUTSIDE RECORDS SUMMARY | 2025-06-10 16:07 | XMS_ITS | Encounter Summary ---
Author Organization [facility] Address [address] [place] [address] Care Team Providers Care Senior Cost Estimator Name Role Phone Tani Hernandes MD Primary Care Provider [phone] Encounter Details Date Type Department Care Team Description 11/01/2022 Social Work [facility] Oncology Services [address] [place] [address] Jefe Neely, [facility] Social History Tobacco Use Types Packs/Day Years [...] on filedocumented in this encounter Care Teams Senior Cost Estimator Relationship Specialty Start Date End Date Tani Hernandes MD [address] [place] [address] PCP - General Internal Medicine 09/09/22 documented as of this encounter
--- OUTSIDE RECORDS SUMMARY | 2025-06-10 16:07 | XMS_ITS | Clinical Summary ---
Author Organization [facility] Address [address] [place] [address] Care Team Providers Care Assembler Final Name Role Phone Tani Hernandes MD Primary Care Provider [phone] Allergies Active Allergy Reactions Criticality Noted Date [...] 65 04/03/2024 11:26 AM EDT Temperature 36.1 C (97 F) 04/03/2024 11:26 AM EDT Respiratory Rate 20 06/16/2023 3:59 [...] of 2) 05/22/2020 03/27/2020 Influenza Vaccine (#1) 2025 0, 06/22/2017, 07/15/2016, Additional history exists Hepatitis B Vaccines Aged Out No long er eligible based on patient's age to complete this topic RSV Ped < 20 months Aged Out No longe r eligible based on patient's age to complete this topic Care Teams Assembler Final Relationship Specialty Start Date End Date Tani Hernandes MD [address] [place] [id number] PCP - General Internal Medicine 09/09/22
--- OUTSIDE RECORDS SUMMARY | 2025-06-10 16:07 | XMS_ITS | Clinical Summary ---
Author Organization [facility] Address [address] [place] [address] Phone Care Team Providers Care Store Clerk Name Role Phone Tani Hernandes MD Primary Care Provider [phone] Allergies Active Allergy Reactions Criticality Noted Date [...] Intracatheter: As needed for line care Active Mounjaro 5 mg/0.5 mL injection INJECT 1 PEN UNDER THE SKIN ONCE A WEEK Active pantoprazole (PROTONIX) 40 mg EC tabletIndicatio ns:Pharyngoesop hageal dysphagia,Gastr oesophageal reflux disease without esophagitis Take 1 tablet (40 mg total) by mouth 2 (two) times a day. Do not crush, chew, or split. 180 each 3 5 12/14/19 26 Active venlafaxine (EFFEXOR) 37.5 mg tablet Take 1 tablet (37.5 mg total) by mouth 2 (two) times a day. Active venlafaxine (EFFEXOR) 75 mg tablet Take 1 tablet (75 mg total) by mouth 2 (two) times a day. Active Active Problems Problem Noted Date Diagnosed Date Acute non-Q wave non-ST elev ation myocardial infarction (NSTEMI) ([facility] V24, [facility] V28) 10/11/2023 Acute respiratory failure wi th hypoxia ([facility] V24, [facility] V28) 10/11/2023 JAMAR (acute kidney injury) ([facility] V24) 10/11/19 24 Anemia complicating neoplastic disease Anxiety and depression 10/11/2023 Aortic insufficiency 10/11/2023 Chronic midline low back pain without sciatica 0 10/11/2023 COVID-19 10/11/2023 Diastolic CHF ([facility] V24, [facility] V28) 024 Drug-induced peripheral neuropathy ([facility] V24) 10/11/2023 DVT (deep venous thrombosis) ([facility] V24, [facility] V28) 10/11/2023 Hypertension 10/11/2023 Hypomagnesemia 10/11/2023 Malignant neoplasm of ascend ing colon ([facility] V24, [facility] V28) 10/11/2023 Assessment & Plan (12/13/2024 5:20 PM EDT): Recent colonoscopy 09/2023 Due to to 2025 Multiple subsegmental pulmon manjeet emboli without acute cor pulmonale ([facility] V24, [facility] V28) 10/11/2023 Paroxysmal atrial fibrillation ([facility] V24, [facility] V28) 10/11/2023 SBO (small bowel obstruction) ([facility] V24, [facility] V28) 10/11/2023 Type 2 diabetes mellitus wit h stage 3a chronic kidney disease, without long-term current use of insulin ([facility] V24, [facility] V28) 10/11/2023 Encounters Date Type Department Care Team Description 05/12/2025 2:30 PM EDT - 05/12/2025 11:59 PM EDT Hospital Encounter [facility] [address] [place] [phone] Arron Portillo MD Malignant neoplasm of ascending colon ([facility] V24, [facility] V28) (Primary Dx) Discharge Disposition: Home or Self Care 05/12/2025 2:00 PM EDT Office Visit [facility] Hematology Oncology [address] [place] [phone] Subramonia-Iy er, MD Arron Malignant neoplasm of ascending colon ([facility] V24, [facility] V28) (Primary Dx); Anemia complicating neoplastic disease; Drug-induced peripheral neuropathy ([facility] V24); Paroxysmal atrial fibrillation ([facility] V24, [facility] V28) 04/09/2025 Telephone Gastroenterology - [address] [facility] [address] [place] [address] Filiberto Montilla MD 04/01/2025 9:33 AM EDT - 04/01/2025 11:59 PM EDT Hospital Encounter [facility] Xray [address] [place] [address] Suze Hebert, VENITA Pharyngoesophageal dysphagia Discharge Disposition: Home or Self Care 03/19/2025 2:26 PM EDT - 03/19/2025 11:59 PM EDT Hospital Encounter [facility] [address] [facility] 2[address] [place] [address] Malignant neoplasm of ascending colon ([facility] V24, [facility] V28); Acute non-Q wave non-ST elevation myocardial infarction (NSTEMI) ([facility] V24, [facility] V28) Discharge Disposition: Home or Self Care from Last 3 Months Surgical History Surgery Date Site/Laterality Comments COLONOSCOPY 09/28/2023 - 10/26/2023 Patent end-to-end ileocolonic anastomosis, healthy appearing mucosa, sigmoid tics (2yr) Dr. Montilla HYSTERECTOMY PROCEDURE:HYSTERECTOMY CHOLECYSTECTOMY PROCEDURE:CHOLECYSTECT KATIANA TOTAL KNEE ARTHROPLASTY PROCEDURE:REPLACEMENT TOTAL KNEE;COMMENT:right DOUBLE CHAMBER RIGHT VENTRIC LE REPAIR PROCEDURE:DOUBLE CHAMBER RIGHT VENTRICLE REPAIR ESOPHAGOGASTRODUODENOSCOPY 09/28/2023 - 10/26/2023 Unremarkable with mid esophageal biopsy. Distal esophagus dilated without tear COLONOSCOPY 08/28/2022 - 09/27/2022 Obstructing mass in cecum/invasive adenocarcinoma COLON SURGERY 08/28/2022 - 08/27/2023 right colectomy/colon cancer Medical History Medical History Date Comments Hyperlipidemia Hypertension DVT (deep venous thrombosis) ([facility] V24, [facility] V28) Pulmonary embolism ([facility] V24, [facility] V28) CHF (congestive heart failure) ([facility] V24, [facility] V28) Asthma NSTEMI (non-ST elevated myoc ardial infarction) ([facility] V24, [facility] V28) Diabetes mellitus ([facility] V24, [facility] V28) Hypothyroidism Chronic back pain Family History Medical History Relation Name Comments Cancer Mother leukemia Cancer Nephew Relation Name Status Comments Mother Nephew Alive Social History Tobacco Use Types Packs/Day Years Used Date Smoking Tobacco: Former Cigarettes Q uit: 08/28/2017 Smokeless Tobacco: Never Tobacco Cessation:Counseling Given: Not [...] Sign Reading Time Taken Comments Blood Pressure 135/55 05/12/2025 2:11 PM EDT Pulse 74 05/12/2025 2:11 PM EDT Temperature 37 C (98.6 F) 05/12/2025 2:11 PM EDT Respiratory Rate 18 01/14/2025 8:35 AM EDT Oxygen Saturation 96% 05/12/2025 2:11 PM EDT Inhaled Oxygen Concentration - - Weight 119 kg (263 lb) 05/12/2025 2:11 PM EDT Height 162.6 cm (5' 4 ) 05/12/2025 2:11 PM EDT Body Mass Index 45.14 05/12/2025 2:11 PM EDT Plan of Treatment Upcoming Encounters Date Type Department Care Team (Late st Contact Info) Description 06/23/2025 1:30 PM EDT Appointment [facility] [address] [phone] 11/07/2025 2:15 PM EDT Office Visit [facility] Hematology Oncology [address] [place] [phone] Arron Rowley MD [address] [place] [phone] Health Maintenance Due Date Last Done Comments Breast Cancer Screening 1950 Diabetes: Annual Foot Exam 1960 Diabetes: Annual Retina Eye Exam 1960 RSV Immunization Adult Patients (1 - Risk 50-74 years 1-dose series) 2000 Pneumococcal Vaccine: 50+ Years (2 of 2 - PPSV23, PCV20, or PCV21) 05/30/2018 04/04/2018 Zoster Vaccines (2 of 2) 05/22/2020 03/27/2020, 02/27 Cholesterol Screening (Lipid Panel) 07/26/2022 Hepatitis C Screening 07/26/2022 Osteoporosis Screening (Bone Density Screening) 07/26/2022 Social Influencers of Health Screening 07/26/2022 Diabetes: Annual Urine Albumin-Creatinine Ratio (uACR) 10/12/2023 Diabetes: Blood Sugar Control Test (HGBA1C) 10/12/2023 Medicare Annual Wellness Visit 06/06/2024 06/06/2023 Depression Screening 08/28/2024 COVID-19 Vaccine ( season) 2025 09/15/2021, 12/14/2020, 11/16/2020 Influenza Vaccine (#1) 2025 , 07/14/2023, 06/17/2022, Additional history exists Colorectal Cancer Screening: Colonoscopy 05/06/2025 05/06/2015 Falls Risk Assessment 01/14/2026 01/14/2025 Diabetes: Annual GFR (Glomerular Filtration Rate) 03/21/2026 03/21/2025, 03/21/2025, 03/19/2025, Additional history exists Hypertension/CHF/CAD Annual BMP Blood Test 03/21/2026 03/21/2025, 03/21/2025, 03/19/2025, Additional history exists DTaP,Tdap,and Td Vaccines (3 [...] age to complete this topic Meningococcal B Vaccine Aged Out No l onger eligible based on patient's age to complete this topic RSV Immunization Patients Under 20 months Aged Out No longer eligible based on patient's age to complete this topic Varicella Vaccines Aged Out No longer eligible based on patient's age to complete this topic Procedures Procedure Name Priority Date/Time Associated Diagnosis Comments APPLIED BEHAVIOR SPECIALIST VIDEOFLUOROSCOPIC SWALLOW STUDY WITH BARIUM Routine 04/01/2025 10:15 AM EDT Pharyngoesophagea l dysphagia XR BARIUM SWALLOW WITH VIDEO AND SPEECH Routine 04/01/2025 10:14 AM EDT Pharyngoesophagea l dysphagia CBC WITH AUTO DIFFERENTIAL Routine 03/19/2025 2:40 PM EDT Malignant neoplasm of ascending colon ([facility]/HCC V24, [facility] V28) Acute non-Q wave non-ST elevation myocardial infarction (NSTEMI) ([facility]/HCC V24, [facility] V28) CARCINOEMBRYONIC ANTIGEN Routine 025 2:40 PM EDT Malignant neoplasm of ascending colon (CMS/HCC V24, [facility] V28) Acute non-Q wave non-ST elevation myocardial infarction (NSTEMI) ([facility]/HCC V24, [facility] V28) COMPREHENSIVE METABOLIC PANEL Routine 03/19/2025 2:40 PM EDT Malignant neoplasm of ascending colon (CMS/HCC V24, [facility] V28) Acute non-Q wave non-ST elevation myocardial infarction (NSTEMI) ([facility]/HCC V24, [facility] V28) CBC AND DIFFERENTIAL Routine 03/19/2025 2:40 PM EDT Malignant neoplasm of ascending colon ([facility] V24, [facility] V28) Acute non-Q wave non-ST elevation myocardial infarction (NSTEMI) ([facility] V24, [facility] V28) EXTERNAL COLONOSCOPY REPORT Routine 05/06/2015 9:30 AM EDT from Last 3 Months or Most Recently Relevant to Health Maintenance Results * APPLIED BEHAVIOR SPECIALIST videofluoroscopic swallow study with barium (04/01/2025 10:15 AM EDT) Suze Hurley SLP - 04/01/2025 10:15 AM EDT VENITA Leyva 04/01/2025 10:22 AM Speech/Language Pathology OUTPATIENT MODIFIED BARIUM SWALLOW STUDY/ VIDEOFLUOROSCOPIC EVALUATION OF THE SWALLOW NAME: Dahlia Fine DATE OF : 1950 DATE: 04/01/2025 RECOMMENDATIONS: Recommendations/Treat Solid Consistency: IDDSI Level 7 Regular Liquid Consistency: Thin liquids Liquid Administration Via: Cup, Straw Recommended Medication Route: PO Recommended Medication Administration: One pill at a time (take with plenty of fluids) Supervision: Close Compensations: Alternating liquids and solids Postural Changes and/or Swallow Maneuvers: Upright TREATMENT RECOMMENDATIONS: Evaluation Only - No Additional Skilled APPLIED BEHAVIOR SPECIALIST Needs Indicated at this time. Summary and Impressions: Dahlia Fine is a 74 y.o. who presents with relatively functional Oropharyngeal Swallow on MBS. Pt had premature spillage, flash laryngeal penetration and trace pharyngeal residue which is all considered age related normal. Residue cleared spontaneously with sips of water. No tracheal aspiration. Barium tablet cleared through pharynx rapidly. Discussed results and recommendations with patient. TIME IN: 15 TIME OUT: 1015 MINUTES: 60 MATERIAL CONTROL CLERK REQUIRED: No GENERAL INFORMATION: Ordering Physician: Filiberto Montilla MD Radiologist: Prema PATEL Date of Evaluation: 04/01/25 Type of Study: Initial MBS Reason for Study: Pt with c/o difficulty swallowing solids and pills. On PPI for GERD. EGD normal. Diet Prior to this Study: regular/thin Dysphagia Diagnosis: Within Functional Limits SUBJECTIVE: Pleasant, arrived in WC, able to ambulated to stool for MBS. Pharyngoesophageal dysphagia [R13.14] APPLIED BEHAVIOR SPECIALIST VIDEOFLUOROSCOPIC SWALLOW STUDY WITH BARIUM [[id number]] XR BARIUM SWALLOW WITH VIDEO AND SPEECH [[id number]] ALLERGIES: Allergies Allergen Reactions Codeine Morphine Percocet [Oxycodone-Acetaminophen] OBJECTIVE Respiratory status: Room air DYSPHAGIA HISTORY/PREVIOUS MBSs none DYSPHAGIA SYMPTOMS REPORTED: Difficulty swallowing food and Difficulty swallowing pills MENTAL STATUS: Alert , Responsive, and Cooperative Oral/Motor: Oral Motor Comments: Oral mech skills WNL for Speech and Swallowing tasks. Fluoroscopy View: Lateral Position during Eval: Other stool CONSISTENCIES TRIALED FOOD: IDDSI Level 7 Regular and IDDSI Level 4 Puree LIQUID: IDDSI Level 3 Moderately Thick, IDDSI Level 2 Mildly Thick, and IDDSI Level 0 Thin BARIUM TABLET: whole with water Oral Phase: Oral Phase: Within Functional Limits (premature spillage) Oral Phase: Within Functional Limits (premature spillage) Pharyngeal Phase: Pharyngeal Phase: Within Functional Limits (Age related normal flash laryngeal penetration. Trace pharyngeal residue cleared indep.) Pharyngeal Phase: Within Functional Limits (Age related normal flash laryngeal penetration. Trace pharyngeal residue cleared indep.) Cricopharyngeal/Esophageal Phase: Cricopharyngeal Comment: unable to fully visualize due to body habitus Cricopharyngeal Comment: unable to fully visualize due to body habitus 8- Point Penetration Aspiration Scale (PAS) Consistency- (IDDSI level) Score Comments Moderate thick liquids (3) 1- Material does not enter airway. Mildly thick liquids (2) 1- Material does not enter airway. Thin liquids (0) 2- Material enters the airway, remains above the vocal folds, and is ejected from the airway. X1 flash laryngeal penetration with small sips. Puree (4) 1- Material does not enter airway. Regular solids (7) 1- Material does not enter airway. Barium tablet 1- Material does not enter airway. Other: TRAN Dickson, Mo Beckman, Mark MENARD, MAYCO William, & MAYCO Lewis. A Penetration-Aspiration Scale. Dysphagia 11:93-98, 1996. EDUCATION Education: Education provided: Reviewed MBS video Swallow strategies Applied Knowledge and Verbal Understanding Suze Story, VENITA 04/01/2025 Please note that swallowing is a dynamic process and the skills reflected during this brief assessment may not necessarily represent the patient's swallowing function during an entire meal. Ongoing clinical judgment is strongly advised. us Filiberto Montilla MD APPLIED BEHAVIOR SPECIALIST ORDERABLES Final Resul t * XR Barium Swallow with Video and Speech (04/01/2025 10:14 AM EDT) Anatomical Region Laterality Modality Head and Neck Radiographic Zoey ging 04/01/2025 10:3 5 AM EDT Impressions 04/01/2025 10:42 AM EDT 1.Flash laryngeal penetration without robyn aspiration on nectar consistency. 2.Small residual in the vallecula noted on cracker consistency. 3.Otherwise, modified barium swallow. Please refer to the dedicated speech pathologist report for further details as clinically indicated. -------- FINAL REPORT -------- Dictated By: Prema Elizabeth Dictated Date: 04/01/2025 10:35 ET Assigned Physician: Jignesh Soto Reviewed and Electronically Signed By: Jignesh Soto Signed Date: 04/01/2025 10:42 ET Workstation ID: [id number] Transcribed By: Self Edit Transcribed Date: 04/01/2025 10:38 ET Resident/PA/LUNCHEONETTE OPERATOR: Prema Elizabeth Narrative 04/01/2025 10:42 AM EDT CLINICAL HISTORY: Dysphagia STUDY: Modified barium swallow study COMPARISON: No prior modified barium swallow. HISTORY: Patient is a 74-year-old female with history of dysphagia, normal EGD. TECHNIQUE: Multiple sequential fluoroscopic images of the lateral neck were obtained for a swallowing function study. Barium enhanced consistencies of pudding, honey, nectar, thin liquid, semi- solid, and a 13 mm barium tablet were utilized for evaluation. Examination was performed with the speech therapist present. FINDINGS: There was flash laryngeal penetration without robyn aspiration noted on nectar consistency. No evidence for penetration or aspiration of any of the other various consistencies. Small residual in the vallecula noted on cracker consistency. 13mm barium tablet was swallowed without difficulty with prompt passage of pill past the hypopharynx. DAP: 0.23 Gycm^2 Procedure Note Jignesh Soto MD - 04/01/2025 CLINICAL HISTORY: Dysphagia STUDY: Modified barium swallow study COMPARISON: No prior modified barium swallow. HISTORY: Patient is a 74-year-old female with history of dysphagia, normalEGD. TECHNIQUE: Multiple sequential fluoroscopic images of the lateral neckwere obtained for a swallowing function study. Barium enhancedconsistencies of pudding, honey, nectar, thin liquid, semi-solid, and a 13mm barium tablet were utilized for evaluation. Examination was performedwith the speech therapist present. FINDINGS: There was flash laryngeal penetration without robyn aspiration noted onnectar consistency. No evidence for penetration or aspiration of any ofthe other various consistencies. Small residual in the vallecula noted oncracker consistency. 13mm barium tablet was swallowed without difficultywith prompt passage of pill past the hypopharynx. DAP: 0.23 Gycm^2 IMPRESSION: 1.Flash laryngeal penetration without robyn aspiration on nectarconsistency. 2.Small residual in the vallecula noted on cracker consistency. 3.Otherwise, modified barium swallow. Please refer to the dedicated speech pathologist report for furtherdetails as clinically indicated. -------- FINAL REPORT -------- Dictated By: Prema Elizabeth Dictated Date: 04/01/2025 10:35 ET Assigned Physician: Jignesh Soto Reviewed and Electronically Signed By: Jignesh Soto Signed Date: 04/01/2025 10:42 ET Workstation ID: [id number] Transcribed By: Self Edit Transcribed Date: 04/01/2025 10:38 ET Resident/PA/LUNCHEONETTE OPERATOR: Prema Elizabeth Filiberto Montilla MD IM FLUOROSCOPY PROCEDURES Final Result * (ABNORMAL) CBC auto differential (03/19/2025 2:40 PM EDT) WBC 8.1 4.8 - 10.8 K/[facility] LAB HEMETOLOGY METHOD 03/19/2025 4:36 PM EDT [facility] RBC 4.20 3.80 - 4.80 M/mcL LAB HEMETOLOGY METHOD 03/19/2025 4:36 PM EDT [facility] Hemoglobin 12.6 11.5 - 16.0 g/dL LAB HEMETOLOGY METHOD 03/19/2025 4:36 PM EDT [facility] Hematocrit 39.7 35.0 - 47.0 % LAB HEMETOLOGY METHOD 03/19/2025 4:36 PM EDT [facility] MCV 94.5 79.0 - 98.0 FL LAB HEMETOLOGY METHOD 03/19/2025 4:36 PM EDT [facility] MCH 30.0 27.0 - 32.0 pcg LAB HEMETOLOGY METHOD 03/19/2025 4:36 PM EDT [facility] MCHC 31.7(L) 32.0 - 37.0 g/dL LAB HEMETOLOGY METHOD 03/19/2025 4:36 PM EDT [facility] RDW 13.8 11.0 - 15.0 % LAB HEMETOLOGY METHOD 03/19/2025 4:36 PM EDT [facility] Platelets 228 130 - 400 K/mcL LAB HEMETOLOGY METHOD 03/19/2025 4:36 PM EDT [facility] MPV 9.6 7.0 - 11.0 FL LAB [facility] NRBC 0.0 <1.0 % LAB HEMETOLOGY METHOD 03/19/2025 4:36 PM EDT [facility] NRBC Absolute 0.00 <0.10 K/mcL LAB HEMETOLOGY METHOD 03/19/2025 4:36 PM EDT [facility] Neutrophils Relative 77.7 % LAB HEMETOLOGY METHOD 03/19/2025 4:36 PM EDT [facility] Lymphocytes Relative 13.5 % LAB HEMETOLOGY METHOD 03/19/2025 4:36 PM EDT [facility] Monocytes Relative 6.3 % LAB HEMETOLOGY METHOD 03/19/2025 4:36 PM EDT [facility] Eosinophils Relative 1.2 % LAB HEMETOLOGY METHOD 03/19/2025 4:36 PM EDT [facility] Basophils Relative 0.7 % LAB HEMETOLOGY METHOD 03/19/2025 4:36 PM EDT [facility] Immature Granulocytes Relative 0.6 % LAB HEMETOLOGY METHOD 03/19/2025 4:36 PM EDT [facility] Neutrophils Absolute 6.26 1.50 - 7.00 K/mcL LAB HEMETOLOGY METHOD 03/19/2025 4:36 PM EDT [facility] Lymphocytes Absolute 1.09 1.00 - 5.00 K/mcL LAB HEMETOLOGY METHOD 03/19/2025 4:36 PM EDT [facility] Monocytes Absolute 0.51 0.20 - 1.00 K/mcL LAB HEMETOLOGY METHOD 03/19/2025 4:36 PM EDT [facility] Eosinophils Absolute 0.10 0.00 - 0.50 K/mcL LAB HEMETOLOGY METHOD 03/19/2025 4:36 PM EDT [facility] Basophils Absolute 0.06 0.00 - 0.20 K/mcL LAB HEMETOLOGY METHOD 03/19/2025 4:36 PM EDT [facility] Immature Granulocytes Absolute 0.05(H) 0.00 - 0.03 K/mcL LAB HEMETOLOGY METHOD 03/19/2025 4:36 PM EDT [facility] Blood Blood sample taken from central line / Unknown Existing Catheter / Unknown 03/19/2025 2:40 PM EDT 03/19/2025 4:22 PM EDT us Arron Rowley MD LAB BLOOD ORDERABLE S Final Result [facility] [address] [place] [address], * CEA (03/19/2025 2:40 PM EDT) [facility] CEA 2.7 0.0 - 5.0 ng/mL LAB CHEMISTRY METHOD 03/19/2025 6:04 PM EDT [facility] Blood Blood sample taken from central line / Unknown Existing Catheter / Unknown 03/19/2025 2:40 PM EDT 03/19/2025 4:22 PM EDT Narrative [facility] - 03/19/2025 6:04 PM EDT The Siemens Advia Ingenyaur Chemiluminescent Immunoassay is used. Results obtained with different assay methods or kits cannot be used interchangeably. Results cannot be interpreted as absolute evidence of the presence or absence of malignant disease. Arron Rowley MD LAB BLOOD ORDERABLE S Final Result [facility] [address] [place] [address], * (ABNORMAL) Comprehensive metabolic panel (03/19/2025 2:40 PM EDT) [facility] Sodium 139 133 - 145 mmol/L LAB CHEMISTRY METHOD 03/19/2025 4:59 PM EDT [facility] Potassium 3.8 3.5 - 5.5 mmol/L LAB CHEMISTRY METHOD 03/19/2025 4:59 PM EDT [facility] Chloride 102 96 - 110 mmol/L LAB CHEMISTRY METHOD 03/19/2025 4:59 PM EDT [facility] CO2 31 21 - 32 mmol/L LAB CHEMISTRY METHOD 03/19/2025 4:59 PM EDT [facility] Anion Gap 6 3 - 11 LAB CHEMISTRY METHOD 03/19/2025 4:59 PM EDT [facility] Glucose 144(H) 70 - 100 mg/dL LAB CHEMISTRY METHOD 03/19/2025 4:59 PM [facility] BUN 23 5 - 25 mg/dL LAB CHEMISTRY METHOD 03/19/2025 4:59 PM [facility] Creatinine 1.32(H) 0.50 - 1.10 mg/dL LAB CHEMISTRY METHOD 03/19/2025 4:59 PM [facility] eGFR 42(L) >=60 mL/min/1. 73m2 LAB CHEMISTRY METHOD 03/19/2025 4:59 PM [facility] Comment:Calculation based on the Chronic Kidney Disease Epidemiology Collaboration (CKD-EPI) equation refit without adjustment for race. BUN/Creatinine Ratio 17.4 LAB CHEMISTRY METHOD 03/19/2025 4:59 PM [facility] Calcium 9.0 8.5 - 10.5 mg/dL LAB CHEMISTRY METHOD 03/19/2025 4:59 PM [facility] AST (SGOT) 19 10 - 42 unit/L LAB CHEMISTRY METHOD 03/19/2025 4:59 PM [facility] ALT (SGPT) 22 10 - 60 unit/L LAB CHEMISTRY METHOD 03/19/2025 4:59 PM [facility] Alkaline Phosphatase 62 42 - 121 unit/L LAB CHEMISTRY METHOD 03/19/2025 4:59 PM [facility] Total Protein 6.5 6.0 - 8.0 g/dL LAB CHEMISTRY METHOD 03/19/2025 4:59 PM [facility] Albumin 3.3 3.2 - 5.0 g/dL LAB CHEMISTRY METHOD 03/19/2025 4:59 PM [facility] Total Bilirubin 0.5 0.0 - 1.4 mg/dL LAB CHEMISTRY METHOD 03/19/2025 4:59 PM [facility] Blood Blood sample taken from central line / Unknown Existing Catheter / Unknown 03/19/2025 2:40 PM EDT 03/19/2025 4:22 PM EDT Miaramony Amrik ARIZMENDI LAB BLOOD ORDERABLE S Final Result [facility] [address] [place] [address], [place] [phone] * External Colonoscopy Report (05/06/2015 9:30 AM EDT) Anatomical Region Laterality Modality Endoscopy Historical Provider GI~PROCEDURE ORDERABLES F inal Result from Last 3 Months or Most Recently Relevant to Health Maintenance Insurance MEDICARE MEDICAID - [place] Care Teams Store Clerk Relationship Specialty Start Date End Date Tani Hernandes MD [address] [place] [phone] PCP - General 09/09/22
[2025-06-10 16:50] LABS: Alanine Aminotransferase 14 U/L (0-31); Cholesterol 136 mg/dL (<200); HDL Cholesterol 37 mg/dL (>40); Triglycerides 134 mg/dL (<150)
[2025-06-10 17:07] LABS: Free T4 (Free Thyroxine) 0.87 ng/dL (0.71-1.85); Thyroid Stimulating Hormone 1.71 uIU/mL (0.32-4.0)
== END 2025-06-10 13:21 | disposition home or self-care (01) ==
LOC: HO.HMGCLDS 13:20
PROVIDERS: PCP Internal Medicine; Visit Provider Internal Medicine
DX: E78.2 Mixed hyperlipidemia (principal); E03.9 Hypothyroidism, unspecified
CPT/HCPCS: 36415; 80061; 84439; 84443; 84460

== ENCOUNTER 2025-08-18 11:49 | Outpatient (AMB) | payer MEDICARE, MEDICAID, SELFPAY ==
--- OUTSIDE RECORDS SUMMARY | 2024-06-21 11:53 | XMS_ITS | Encounter Summary ---
Author Organization [facility] [place] [address] Care Team Providers Care Tool Filer Hand Name Role Phone Tani Hernandes MD Primary Care Provider Encounter Details Date Type Department Care Team (Late st Contact Info) Description 06/21/2024 12:53 PM EDT Hospital Encounter TH HISTORIC ENCOUNTERS EASTERN CONVERSION ONLY Social History Tobacco Use Types Packs/Day Years Used Date Smoking Tobacco: Former Cigarettes 0 Q uit: 08/28/2017 Smokeless Tobacco: Never Alcohol Use Standard Drinks/Week Comments Not Currently 0 (1 standard drink = 0.6 oz pur e alcohol) Interpersonal Safety Answer Date Record ed Physical Abuse Unrecognized value 01/14/2025 Verbal Abuse Unrecognized value 01/14/2025 Comments No Sex and Gender Information Value Date Recorded Sex Assigned at Female 09/16/2024 12:58 PM EST Legal Sex Female 11:13 AM EST Gender Identity Female 09/16/2024 12:58 PM EST Sexual Orientation Straight 09/16/2024 12 :58 PM EST documented as of this encounter Last Filed Vital Signs Vital Sign Reading Time Taken Comments Blood Pressure - - Pulse - - Temperature - - Respiratory Rate - - Oxygen Saturation - - Inhaled Oxygen Concentration - - Weight 123 kg (271 lb 9.6 oz) 04/03/2024 11:26 A M EDT Height 162.6 cm (5' 4 ) 04/03/2024 11:26 AM EDT Body Mass Index 46.62 04/03/2024 11:26 AM EDT documented in this encounter Progress Notes * Historical, Notes Results - 06/21/2024 1:00 PM EDT Pt arrives today via wheelchiar for port draw. Pt states she is feeling well overall. RIGHT upper chest port accessed/deaccessed per protocol. Positive blood return noted. Labs drawn and sent. Pt tolerated well. Stable at discharge. documented in this encounter Plan of Treatment Upcoming Encounters Date Type Department Care Team (Late st Contact Info) Description 08/19/2025 11:30 AM EST Appointment [facility] Infusion Center [address] [place] [phone] 10/06/2025 1:30 PM EST Appointment [facility] CT Scan [address] [place] [phone] 11/07/2025 2:15 PM EDT Office Visit [facility] Hematology Oncology [address] [place] [phone] Arron Rowley MD [address] [place] [address] documented as of this encounter Visit Diagnoses Not on filedocumented in this encounter Care Teams Tool Filer Hand Relationship Specialty Start Date End Date Tani Hernandes MD [address] [place] [address] PCP - General 09/09/22 documented as of this encounter
--- NOTE | 2025-08-18 12:05 | MHC.OFFWIV ---
Intake Vital Signs 08/18/25 12:06 Height 5 ft 4 in Weight 260 lb BMI 44.6 BP 112/70 Blood Pressure Location Lt brachial Position Sitting Pulse 77 Pulse Source Pulse Oximeter Pulse Oximetry (%) 98 Oxygen Delivery Method Room Air Intake Visit Reasons: EP huge and bruising and lump on right leg/buttock Intake Note: Patient presents c/o bruising, pain & a bump on right knee & bruising, pain on right buttock related to a fall at home last week. Patient Tobacco Use Status: Former Tobacco user Allergies ibuprofen Allergy (Unknown, Verified 08/18/25 12:12) unknown morphine Allergy (Unknown, Verified 08/18/25 12:12) Unknown codeine Allergy (Verified 08/18/25 12:12) Unknown Do you need a note to return to daycare/school/sports/work: No HPI HPI Comments History of Present Illness Details History of Present Illness - The patient is a 74 year old female presenting for evaluation of injuries sustained after a fall. - She reports falling on her entire right side last Monday and was unable to get up from the floor, prompting a call to the ambulance. - She declined transport to the emergency room due to a phobia of hospital admission. - Following the fall, the patient noticed ecchymosis and a palpable lump on her right lateral knee. - She reports pain in her right hip and knee, as well as her right arm, wrist, and hip. - The pain has been disrupting her sleep. - Associated symptoms include pain while sitting on the toilet, though she is able to lift her leg. - She has pain that radiates to her groin. - She denies any numbness or tingling. - Her medical history is notable for a right knee replacement and a history of blood clots, for which she takes Eliquis. - For pain, she uses Tylenol and gabapentin. - She denies back pain, chest pain, SOB, saddle anesthesia, or incontinence. Physical Exam General: Cooperative, healthy appearing, comfortable, no acute distress and well developed Orientation: Patient oriented x3 Limitations: No limitations Head: Normal to inspection Neck: Normal visual inspection, full ROM Respiratory: Normal respiratory effort and able to speak in complete sentences. Cardiac: RRR. No m/r/g noted. Pulses are 2+ on the LE. Skin: Bruising and hematoma noted on the right lateral knee. No abrasions noted. Neuro: Patient oriented x3, CN 2-12 intact, gait normal. Sensation is intact. Back/spine: no TTP cervical, thoracic or lumbar spine, tenderness noted in the right hip and buttock area Extremities: No deformity noted. Decrease ROM of the hip on the right. No click noted. FROM of the right knee. No TTP of the right SI joint, lateral hip, upper lateral leg, or knee. Scar noted on the knee. DTR are 2. Strength is 5/5 on the UE bilaterally. Ambulates with a walker. Patient was informed and verbally consented to the use of an ambient scribe for clinic note documentation during this visit. FORMERLY [facility], [facility] Social History Patient Tobacco Use Status: Former Tobacco user Review of Systems Const All systems reviewed & are unremarkable except as noted in HPI and below Physical Exam Vital Signs: Last Vital Signs Pulse 77 08/18/25 12:06 BP 112/70 08/18/25 12:06 Pulse Ox 98 08/18/25 12:06 Oxygen Delivery Method Room Air 08/18/25 12:06 BMI result Body Mass Index 44.6 Results Reviewed Results Reviewed: will review the xray in the office Assessment & Plan Assessment & Plan (1) Fall: Code(s): W19.XXXA - Unspecified fall, initial encounter Qualifiers: Encounter type: initial encounter Qualified Code(s): W19.XXXA - Unspecified fall, initial encounter (2) Right leg pain: Code(s): M79.604 - Pain in right leg Plan Most likely contusions vs ?fracture Plan - An X-ray of the right hip and pelvis will be performed to rule out a fracture, although it is thought to be unlikely given the patient's mobility. - For pain management, the patient is advised to continue using Tylenol and gabapentin. - The patient can apply heat or ice to the hematoma and knee, depending on which provides more comfort. - To minimize pressure on the injured area, the patient should use a pillow for bracing when lying on her side and shift her weight when sitting to avoid direct pressure on the bone. - The patient should continue to use her walker for ambulation. - I will call the patient with the X-ray results. - follow up with PCP Orders: Orders XR hip RT w PEL1V Today M25.551 - Pain in right hip Coding Level of Care Code Est Pt Level 4 (04585) Diagnoses Fall, initial encounter W19.XXXA Encounter type: initial encounter Right leg pain M79.604
[2025-08-18 12:06] VITALS: BP 112/70; PULSE 77; O2SAT 98; BMI 44.6
--- OUTSIDE RECORDS SUMMARY | 2025-08-18 15:07 | XMS_ITS | Clinical Summary ---
Author Organization [facility] Address [address] [place] [address] Phone Care Team Providers Care Outdoor Emergency Care Technician Name Role Phone Tani Hernandes MD Primary Care Provider [phone] Allergies Active Allergy Reactions Criticality Noted Date [...] (LASIX) 40 mg tablet Twice A Day 3 Active isosorbide mononitrate (IMDUR) 60 mg 24 [...] 10/11/2023 Malignant neoplasm of ascending colon 10/11/2023 Assessment & Plan (12/13/2024 5:20 PM EDT): Recent colonoscopy 09/2023 Due to to 2025 Multiple subsegmental pulmon manjeet emboli without acute cor pulmonale 10/11/2023 Paroxysmal atrial fibrillation 10/11/2023 SBO (small bowel obstruction) 10/11/2023 Type 2 diabetes mellitus wit h stage 3a chronic kidney disease, without long-term current use of insulin 10/11/2023 Encounters Date Type Department Care Team Description 06/23/2025 1:30 PM EDT - 06/23/2025 11:59 PM EDT Hospital Encounter [facility] [address] [place] [address] 2[address] [place] [address] Malignant neoplasm of ascending colon (CMS/HCC V24, CMS/HCC V28) Discharge Disposition: Home or Self Care [...] Comments Hyperlipidemia Hypertension DVT (deep venous thrombosis) (CMS/HCC V24, CMS/H CC V28) Pulmonary embolism (CMS/HCC V24, [facility] V28) CHF (congestive heart failure) ([facility] V24, [facility] V28) Asthma NSTEMI (non-ST elevated myoc ardial infarction) ([facility] V24, [facility] V28) Diabetes mellitus ([facility] V24, [facility] V28) Hypothyroidism Chronic back pain Family History Medical History Relation Name Comments Cancer Mother leukemia Cancer Nephew Relation Name Status Comments Mother Nephew Alive Social History Tobacco Use Types Packs/Day Years Used Date Smoking Tobacco: Former Cigarettes 0 Q uit: 08/28/2017 Smokeless Tobacco: Never Tobacco [...] Orientation Straight 09/16/2024 12 :58 PM EST Last Filed Vital Signs Vital Sign Reading [...] Info) Description 08/19/2025 11:30 AM EST Appointment [facility] [address] [facility] [address] [place] [address] 10/06/2025 1:30 PM EST Appointment [facility] CT Scan [address] [place] [address] 11/07/2025 2:15 PM EDT Office Visit [facility] Hematology Oncology [address] [place] [phone] Arron Rowley MD [address] [place] [phone] Health Maintenance Due Date Last Done Comments [...] 01/14/2025 Diabetes: Annual GFR (Glomerular Filtration Rate) 06/23/2026 06/23/2025, 03/21/2025, 03/21/2025, Additional history exists Hypertension/CHF/CAD Annual BMP Blood Test 06/23/2026 06/23/2025, 03/21/2025, 03/21/2025, Additional history exists DTaP,Tdap,and Td Vaccines (3 [...] Diagnosis Comments CBC WITH AUTO DIFFERENTIAL Routine 06/23/2025 1:57 PM EDT Malignant neoplasm of ascending colon (CMS/HCC V24, CMS/HCC V28) CBC AND DIFFERENTIAL Routine 06/23/2025 1:57 PM EDT Malignant neoplasm of ascending colon (CMS/HCC V24, CMS/HCC V28) COMPREHENSIVE METABOLIC PANEL Routine 06/23/2025 1:57 PM EDT Malignant neoplasm of ascending colon (CMS/HCC V24, CMS/HCC V28) CARCINOEMBRYONIC ANTIGEN Routine 025 1:57 PM EDT Malignant neoplasm of ascending colon (CMS/HCC V24, CMS/HCC V28) EXTERNAL COLONOSCOPY REPORT Routine 05/06/2015 9:30 AM EDT from Last 3 Months or Most Recently Relevant to Health Maintenance Results * (ABNORMAL) CBC auto differential (06/23/2025 1:57 PM EDT) WBC 10.3 4.8 - 10.8 K/mcL LAB HEMETOLOGY METHOD 06/23/2025 2:38 PM EDT [facility] RBC 4.30 3.80 - 4.80 M/mcL LAB [facility] Hemoglobin 13.2 11.5 - 16.0 g/dL LAB [facility]EMETOLOGY [facility] Hematocrit 40.4 35.0 - 47.0 % LAB HEMETOLOGY METHOD 06/23/2025 2:[address] [facility] MCV 93.1 79.0 - 98.0 FL LAB HEMETOLOGY METHOD 06/23/2025 2:[address] [facility] MCH 30.4 27.0 - 32.0 pcg LAB HEMETOLOGY METHOD 06/23/2025 2:[address] [facility] MCHC 32.7 32.0 - 37.0 g/dL LAB HEMETOLOGY METHOD 06/23/2025 2:[address] [facility] RDW 13.9 11.0 - 15.0 % LAB HEMETOLOGY METHOD 06/23/2025 2:[address] [facility] Platelets 221 130 - 400 K/mcL LAB HEMETOLOGY METHOD 06/23/2025 2:[address] [facility] MPV 9.5 7.0 - 11.0 FL LAB HEMETOLOGY METHOD 06/23/2025 2:[address] [facility] NRBC 0.0 <1.0 % LAB HEMETOLOGY METHOD 06/23/2025 2:[address] [facility] NRBC Absolute 0.00 <0.10 K/mcL LAB HEMETOLOGY METHOD 06/23/2025 2:[address] [facility] Neutrophils Relative 79.5 % LAB HEMETOLOGY METHOD 06/23/2025 2:[address] [facility] Lymphocytes Relative 12.4 % LAB HEMETOLOGY METHOD 06/23/2025 2:[address] [facility] Monocytes Relative 5.5 % LAB HEMETOLOGY METHOD 06/23/2025 2:[address] [facility] Eosinophils Relative 1.3 % LAB HEMETOLOGY METHOD 06/23/2025 2:[address] [facility] Basophils Relative 0.7 % LAB HEMETOLOGY METHOD 06/23/2025 2:[address] [facility] Immature Granulocytes Relative 0.6 % LAB HEMETOLOGY METHOD 06/23/2025 2:[address] [facility] Neutrophils Absolute 8.18(H) 1.50 - 7.00 K/mcL LAB HEMETOLOGY METHOD 06/23/2025 2:[address] [facility] Lymphocytes Absolute 1.27 1.00 - 5.00 K/mcL LAB HEMETOLOGY METHOD 06/23/2025 2:[address] [facility] Monocytes Absolute 0.56 0.20 - 1.00 K/mcL LAB HEMETOLOGY METHOD 06/23/2025 2:[address] [facility] Eosinophils Absolute 0.13 0.00 - 0.50 K/mcL LAB HEMETOLOGY METHOD 06/23/2025 2:[address] [facility] Basophils Absolute 0.07 0.00 - 0.20 K/mcL LAB HEMETOLOGY METHOD 06/23/2025 2:[address] [facility] Immature Granulocytes Absolute 0.06(H) 0.00 - 0.03 K/mcL LAB HEMETOLOGY METHOD 06/23/2025 2:[address] [facility] Blood Blood sample taken from central line / Unknown Existing Catheter / Unknown 06/23/2025 1:57 PM EDT 06/23/2025 2:30 PM EDT us Arron oRwley MD LAB BLOOD ORDERABLE S Final Result Performing Organization Address [facility] Co de Phone Number [facility] [address] [place] [address], [place] [phone] * CEA (06/23/2025 1:57 PM EDT) [facility] CEA 2.4 0.0 - 5.0 ng/mL LAB CHEMISTRY METHOD 06/23/2025 5:23 PM EDT [facility] Blood Blood sample taken from central line / Unknown Existing Catheter / Unknown 06/23/2025 1:57 PM EDT 06/23/2025 2:30 PM EDT Narrative [facility] - 06/23/2025 5:23 PM EDT The [employer] Chemiluminescent Immunoassay is used. Results obtained with different assay methods or kits cannot be used interchangeably. Results cannot be interpreted as absolute evidence of the presence or absence of malignant disease. us Arron Rowley MD LAB BLOOD ORDERABLE S Final Result Performing Organization Address [facility] de Phone Number [facility] [address] [place] [address], [place] [phone] * (ABNORMAL) Comprehensive metabolic panel (06/23/2025 1:57 PM EDT) [facility] Sodium 138 133 - 145 mmol/L LAB CHEMISTRY METHOD 06/23/2025 4:47 PM EDT [facility] Potassium 3.5 3.5 - 5.5 mmol/L LAB CHEMISTRY METHOD 06/23/2025 4:47 PM EDT [facility] Chloride 102 96 - 110 mmol/L LAB CHEMISTRY METHOD 06/23/2025 4:47 PM EDT [facility] CO2 29 21 - 32 mmol/L LAB CHEMISTRY METHOD 06/23/2025 4:[address] [facility] Anion Gap 7 3 - 11 LAB CHEMISTRY METHOD 06/23/2025 4:[address] [facility] Glucose 156(H) 70 - 100 mg/dL LAB CHEMISTRY METHOD 06/23/2025 4:[address] [facility] BUN 23 5 - 25 mg/dL LAB CHEMISTRY METHOD 06/23/2025 4:[address] [facility] Creatinine 1.22(H) 0.50 - 1.10 mg/dL LAB CHEMISTRY METHOD 06/23/2025 4:[address] [facility] eGFR 47(L) >=60 mL/min/1. 73m2 LAB CHEMISTRY METHOD 06/23/2025 4:[address] [facility] Comment:Calculation based on the Chronic Kidney Disease Epidemiology Collaboration (CKD-EPI) equation refit without adjustment for race. BUN/Creatinine Ratio 18.9 LAB CHEMISTRY METHOD 06/23/2025 4:[address] [facility] Calcium 8.7 8.5 - 10.5 mg/dL LAB CHEMISTRY METHOD 06/23/2025 4:[address] [facility] AST (SGOT) 30 10 - 42 unit/L LAB CHEMISTRY METHOD 06/23/2025 4:[address] [facility] ALT (SGPT) 28 10 - 60 unit/L LAB CHEMISTRY METHOD 06/23/2025 4:[address] [facility] Alkaline Phosphatase 63 42 - 121 unit/L LAB CHEMISTRY METHOD 06/23/2025 4:[address] [facility] Total Protein 6.4 6.0 - 8.0 g/dL LAB CHEMISTRY METHOD 06/23/2025 4:[address] [facility] Albumin 3.4 3.2 - 5.0 g/dL LAB CHEMISTRY METHOD 06/23/2025 4:[address] [facility] Total Bilirubin 0.5 0.0 - 1.4 mg/dL LAB CHEMISTRY METHOD 06/23/2025 4:47 PM EDT [facility] Blood Blood sample taken from central line / Unknown Existing Catheter / Unknown 06/23/2025 1:57 PM EDT 06/23/2025 2:30 PM EDT Miaramkj Rowley MD LAB BLOOD ORDERABLE S Final Result [facility] [address] [place] [address], [place] [phone] * External Colonoscopy Report (05/06/2015 9:30 AM EDT) Anatomical Region Laterality Modality Endoscopy Historical Provider GI~PROCEDURE ORDERABLES F inal Result from Last 3 Months or Most Recently Relevant to Health Maintenance Insurance MEDICARE [place]ICA[place] - [place] Care Teams Outdoor Emergency Care Technician Relationship Specialty Start Date End Date Tani Hernandes MD [address] [place] [address] PCP - General 09/09/22
--- OUTSIDE RECORDS SUMMARY | 2025-08-18 15:07 | XMS_ITS | Encounter Summary ---
Author Organization [facility] Prior to 01/25/25 Address [address] [place] [address] Care Team Providers Care Form Carpenter Name Role Phone Tani Hernandes MD Primary Care Provider [phone] Encounter Details Date Type Department Care Team Description 11/01/2022 Social Work [facility] Oncology Services [address] [place] [address] [facility] History Tobacco Use Types Packs/Day Years [...] on filedocumented in this encounter Care Teams Form Carpenter Relationship Specialty Start Date End Date Tani Hernandes MD [address] [place] [address] PCP - General Internal Medicine 09/09/22 documented as of this encounter
--- OUTSIDE RECORDS SUMMARY | 2025-08-18 15:07 | XMS_ITS | Encounter Summary ---
Author Organization [facility] Address [address] [facility] [address] [place] [address] Phone Care Team Providers Care Field Gauger Name Role Phone Tani Hernandes MD Primary Care Provider [phone] Reason for Visit * Reason Comments Med Refill Encounter Details Date Type Department Care Team (Late st Contact Info) Description 09/04/2024 Refill [facility] [address] [facility] [address] [place] [phone] Audie Muhammad MD [address] [phone] Social History Tobacco Use Types Packs/Day Years [...] Care Team (Late st Contact Info) Description 09/24/2025 11:20 AM EST Office [facility] [address] [facility] [address] [place] [address] Elvis Shea MD [address] [facility] [address] [place] [address] documented as of this encounter Visit Diagnoses Not on filedocumented in this encounter Care Teams Field Gauger Relationship Specialty Start Date End Date Tani Hernandes MD [address] PCP - General Internal Medicine 09/13/22 documented as of this encounter
--- OUTSIDE RECORDS SUMMARY | 2025-08-18 15:07 | XMS_ITS | Clinical Summary ---
Author Organization [facility] Address [address] [address] Phone Care Team Providers Care Contractor General Engineering Name Role Phone Tani Hernandes MD Primary Care Provider Allergies Active Allergy Reactions Criticality Noted Date [...] in the morning 90 tablet 4 Active Mounjaro 5 MG/0.5ML solution auto-injector Inject 5 mg under the skin every 7 (seven) days 5 Active amLODIPine (NORVASC) 5 MG tablet Take 1 tablet (5 mg total) by mouth 1 (one) time each day 90 tablet 3 01/09/25/19 Active calcitriol (ROCALTROL) 0.25 MCG capsule Take 1 capsule (0.25 mcg total) by mouth 1 (one) time each day 90 capsule Active amitriptyline (ELAVIL) 25 MG tablet Take 25 mg by mouth at bed time Active Active Problems Problem Noted Date Diagnosed Date Type 2 diabetes mellitus wit h diabetic chronic kidney disease 04/23/2024 Malignant neoplasm of cecum 02/25/2024 Pulmonary embolism 10/11/2023 Stage 3a chronic kidney disease 08/31/2023 Hypertension [...] Stage 3b chronic kidney disease 04/23/2024 07/21/2024 Family History Medical History Relation Comments Atrial [...] Sign Reading Time Taken Comments Blood Pressure 116/64 03/25/2025 11:31 AM EDT Pulse 72 03/25/2025 11:31 AM EDT Temperature - - Respiratory Rate - - Oxygen Saturation 98% 03/25/2025 11:31 AM EDT Inhaled Oxygen Concentration - - Weight 119 kg (263 lb) 03/25/2025 11:31 AM EDT Height 162.6 cm (5' 4 ) 09/25/2024 9:19 AM EST Body Mass Index 45.14 09/25/2024 9:19 AM EST Plan of Treatment Upcoming Encounters Date Type Department Care Team (Late st Contact Info) Description 09/24/2025 11:20 AM EST Office Visit [facility] [address] [phone] Elvis Shea MD [address] [facility] [address] [place] [phone] Health Maintenance Due Date Last Done Comments Breast Cancer Screening 1950 Pneumococcal Vaccine: 50+ Years (1 of 2 - PCV) 1969 Colorectal Cancer Screening: Annual FOBT 1999 Colorectal Cancer Screening: Colonoscopy 1999 Colorectal Cancer Screening: Sigmoidoscopy 1999 Diabetes: Hemoglobin A1C 08/31/2023 Diabetes: Ophthalmology Exam 08/31/2023 Diabetes: Pedal Pulse Checked 08/31/2023 Diabetes: Sensory Foot Exam 08/31/2023 Diabetes: Visual Foot Exam 08/31/2023 Influenza Vaccine (#1) 2025 8, 08/06/2007 Hepatitis B Vaccine Aged Out No longe r eligible based on patient's age to complete this topic Insurance Medicare Medicaid [place] Medicare Medicaid [place] Care Teams Contractor General Engineering Relationship Specialty Start Date End Date Tani Hernandes MD [place] [id number] [place], [place] PCP - General Internal Medicine 09/13/22
--- OUTSIDE RECORDS SUMMARY | 2025-08-18 15:07 | XMS_ITS ---
Author Organization [facility] Prior to 01/25/[address] [place] [address] Care Team Providers Care Forestry Fire Aid Name Role Phone Tani Hernandes MD Primary Care Provider [phone] Active Problems Problem Noted Date Diagnosed Date [...] treatments are documented for this patient in [facility]. Treatments may have been administered in another system.
--- OUTSIDE RECORDS SUMMARY | 2025-08-18 15:07 | XMS_ITS ---
Author Organization [facility] Address [address] [place] [address] Phone Care Team Providers Care Skilled Laborer Name Role Phone Tani Hernandes MD Primary Care Provider [phone] Active Problems Problem Noted Date Diagnosed Date [...] long-term current use of insulin 10/11/2023 Current Treatment and Therapy Plans CENTRAL VENOUS ACCESS ( CVA ) MAINTENANCE / BLOOD DRAW / CATHETER CLEARANCE / DRESSING CHANGE / FLUSH* Plan Start Date:08/02/2024 Plan Provider:Arron Rowley MD Linked Problems Malignant neoplasm of ascend ing colon ([facility] V24, [facility] V28)Acute non-Q wave non-ST elevation myocardial infarction (NSTEMI) ([facility] V24, [facility] V28) Treatment Medications No medications scheduled. Past Treatment and Therapy Plans No past plan information found.
--- OUTSIDE RECORDS SUMMARY | 2025-08-18 15:07 | XMS_ITS | Clinical Summary ---
Author Organization [facility] Prior to 01/25/25 Address [address] [place] [address] Care Team Providers Care Nuclear Physicist Name Role Phone Tani Hernandes MD Primary Care Provider [phone] Allergies Active Allergy Reactions Criticality Noted Date [...] age to complete this topic Care Teams Nuclear Physicist Relationship Specialty Start Date End Date Tani Hernandes MD [address] [place] [address] PCP - General Internal Medicine 09/09/22
== END 2025-08-18 13:15 | disposition home or self-care (01) ==
PROVIDERS: PCP Internal Medicine; Visit Provider Physician Assistant Medical
DX: W19.XXXA Unspecified fall, initial encounter (principal); M79.604 Pain in right leg

== ENCOUNTER → 2025-08-18 11:49 | Outpatient (BNVA) | payer MEDICARE, MEDICAID, SELFPAY | PROVIDERS: PCP Internal Medicine; Visit Provider Physician Assistant Medical | DX: M79.604 Pain in right leg (principal); W19.XXXA Unspecified fall, initial encounter | CPT/HCPCS: 99212 ==

== ENCOUNTER 2025-08-19 12:07 | Outpatient (REF) | payer MEDICARE, MEDICAID, SELFPAY ==
--- OUTSIDE RECORDS SUMMARY | 2024-06-21 11:53 | XMS_ITS | Encounter Summary ---
Author Organization [facility] [place] [address] Care Team Providers Care Rush Seater Name Role Phone Tani Hernandes MD Primary Care Provider [phone] Encounter Details Date Type Department Care Team [...] Care Team (Late st Contact Info) Description 10/06/2025 1:[address] [facility] CT Scan [address] [place] [address] 10/14/2025 11:[address] [facility] Infusion Center [address] [place] [phone] 11/07/2025 2:15 PM EDT Office Visit [facility] Hematology Oncology [address] [place] [phone] Arron Rowley MD [address] [place] [phone] documented as of this encounter Visit Diagnoses Not on filedocumented in this encounter Care Teams Rush Seater Relationship Specialty Start Date End Date Tani Hernandes MD [address] [place] [address] PCP - General 09/09/22 documented as of this encounter
--- NOTE | ~2025-08-19 | XR_ITS ---
EXAMINATION: XR HIP 1 VIEW RIGHT WITH PELVIS HISTORY: M25.551 - Pain in right hip COMPARISON: There are no prior studies available for comparison. FINDINGS: A single AP view of the pelvis and two views of the right hip are submitted. Osseous mineralization is normal. There is no fracture or dislocation. There is a moderate joint space narrowing. The soft tissues are unremarkable. XR/XR hip RT w [id number] IMPRESSION: Moderate right hip joint space narrowing. Electronically signed by: Joe Oliveros MD 08/19/2025 12:26 PM [facility]
--- OUTSIDE RECORDS SUMMARY | 2025-08-19 11:21 | XMS_ITS | Encounter Summary ---
Author Organization [employer] Address [address] [place] [address] Care Team Providers Care Marionette Performer Name Role Phone Tani Hernandes MD Primary Care Provider [phone] Encounter Details Date Type Department Care Team (Latest Contact Info) Description 08/19/2025 11:21 AM EST Hospital Encounter [facility] [address] [place] [address] [address] [place] [address] Malignant neoplasm of ascending colon (CMS/HCC V24, CMS/HCC V28) (Primary Dx); Acute non-Q wave non-ST elevation myocardial infarction (NSTEMI) (CMS/HCC V24, CMS/[facility] V28) Social History Tobacco Use Types Packs/Day Years [...] PM EST documented as of this encounter Progress Notes * Eugenia Pacheco RN - 08/19/2025 11:30 AM EST Pt arrives today for port draw. Pt reports feeling well overall. RIGHT upper chest port accessed per protocol. Positive blood return noted. Port flushed and deaccessed without difficulty. Appointmentmade for port draw in 6 weeks. Stable at discharge. documented in this encounter Plan of Treatment Upcoming Encounters Date Type Department Care Team (Late st Contact Info) Description 10/06/2025 1:30 PM EST Appointment [facility] CT Scan [address] [place] [address] 10/14/2025 11:30 AM EST Appointment [facility] [address] [address] 11/07/2025 2:15 PM EDT Office Visit [facility] Hematology Oncology [address] [place] [phone] Arron Rowley MD [address] [place] [phone] documented as of this encounter Visit Diagnoses Diagnosis Malignant neoplasm of ascending colon ([facility]/HCC V24, CMS/[facility] V28)- Primary Malignant neoplasm of ascending colon Acute non-Q wave non-ST elevation myocardial infarction (NSTEMI) ([facility] V24, [facility] V28) documented in this encounter Administered Medications Active Administered Medications - up to 3 most recent administrations Medication Order MAR Action Action Date Dose Rate Site sodium chloride 0.9 % flush 10 mL 10 mL, intravenous, As needed, line care, Starting on Mon08/19/25 at 1124Indications:Malignant neoplasm of ascending colon (CMS/HCC V24, CMS/HCC V28),Acute non-Q wave non-ST elevation myocardial infarction (NSTEMI) (CMS/HCC V24, CMS/HCC V28) Given 08/19/2025 11:26 AM EST 10 mL documented in this encounter Orders Medications Ordered That Jared ht Not Have Been Administered Count Last Ordered Date First Ordered Date sodium chloride 0.9 % flush 10 mL 1 025 documented in this encounter Care Teams Marionette Performer Relationship Specialty Start Date End Date Tani Hernandes MD [address] [place] [address] PCP - General 09/09/22 documented as of this encounter
--- OUTSIDE RECORDS SUMMARY | 2025-08-19 13:20 | XMS_ITS | Data Portability ---
Author Organization [place] [facility] Address [address] [place] [address] Care Team Providers Care Service Tech Name Role Phone CANDACE DICK Primary Care Provider Assessment Encounter Date Assessment Date Assessment LastModified by Organization Details LastModified Time 12/17/2021 12/17/2021 LEft ear pulsating. Time On Scene with Patient: 01:09:33 DDX: hypertensive urgency, AOM, AOE, tempomandibular joint dysfunction, choelsteatoma, aortic dissection. Pt appears in NAD and has a pulsatile sensation in her left ear. 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 This puts her at a higher risk for a vascular origin for symptoms. Pt has no clinical findings for AOM or AOE. She is normotensive today. Discussed this concern with patient. She is also concerned about her lack of sleep with this sensation. PT will discuss it further with her daughter who is present for evaluation and discussion and consider going to the ED for further evaluation including imaging studies to elucidate this. No possibility of getting outpatient studies in a timely fashion, given this critical concern. At this time patient is neurologically intact and appears well. Pt was left discussing the next step- going to ED- with daughter. Not available 12/17/2021 17:37:34 Plan of Treatment Reminders Order Date Submit Date Provider Last Modified By Organization Details Last Modified Time Details Appointments None record ed. Lab None record ed. Referral None record ed. Procedures None record ed. Surgeries None record ed. Imaging None record ed. Medication Orders None record ed. Patient TargetsNo targets recorded. Patient Instructions Encounter Date Encounter Id Patient Instructions Last Modified By Organization Details Last Modified Time 12/17/2021 [id number] [employer] came to your home to evaluate you for a pulsating sensation to your left ear. You have had this for the past 2 days. There is no pain but this has kept you awake at night. We looked into your ear and there is no infection. We also checked your blood pressure and it was fine. We talked about other causes for this sensation. You have a lot of vascular issues, including an aneurysm in your brain that is on your right side. This could be another vascular issue but we cannot be sure. Please follow up with your PCP as soon as you can. If you have any headaches or you feel this is worse, go to the ED. Not available 12/17/2021 14:31:19 Reason for Referral None Reported. Procedures Surgical History Date Name Laterality Status Provider Name and Address Organization Details Recorded Time cholecystectomy completed DAIJA SNYDER NP [address], [place], [address], [place] [facility] 12/17/2021 14:09:08 Total Hysterectomy completed DAIJA SNYDER NP [address] [place], [address], [place] [facility] 12/17/2021 14:09:16 Unlisted px cardiac surgery completed DAIJA SNYDER NP [address], [place], [address], [place] [facility] 12/17/2021 14:09:41 total knee replacement completed DAIJA SNYDER NP [address], [place], [address], [place] [facility] 12/17/2021 14:09:53 Imaging Results None recorded. Procedure Notes None recorded. Medical Equipment None Reported. Allergies Allergen ID Allergen Name Allergen Category Reaction Reaction Severity Criticality Documentation Date Start Date Code Code System Note Provider Name and Address Organization Details Recorded Time 249580 codeine medicatio n Not available Not available Not available 12/17/2021 2670 RxNorm DAIJA SNYDER NP [address] [place], [address], [place] [facility] 2 14:06:02 054333 morphine medicatio n Not available Not available Not available 12/17/2021 7052 RxNorm DAIJA SNYDER NP [address] [place], [address], [place] [facility] 2 14:06:08 792265 acetamino phen / oxycodone medicatio n Not available Not available Not available 12/17/2021 27295 3 RxNorm DAIJAKathy SNYDER, ANISHA [address], [place], [address], [place] [facility] 2 14:06:15 378215 ibuprofen medicatio n Not available Not available Not available 12/17/2021 5640 RxNorm DAIJA SNYDER, ANISHA [address], [place], [address], [place] [facility] 2 14:06:23 Medications Name Sig Start Date Stop Date Status Note LastModified by Organization Details LastModified Time gabapentin 600 mg tablet TAKE 1 TABLET BY MOUTH AT BEDTIME active Not Available Not Available No t Available atorvastatin 20 mg tablet TAKE 1 TABLET BY MOUTH EVERY DAY active Not Available Not Available No t Available carvedilol 12.5 mg tablet TAKE 1 TABLET BY MOUTH TWICE A DAY active Not Available Not Available No t Available quetiapine 200 mg tablet active Not Available Not Available Not Available glipizide ER 5 mg tablet, extended release 24 hr TAKE 1 TABLET BY MOUTH EVERY DAY active Not Available Not Available No t Available amlodipine 2.5 mg tablet TAKE 1 TABLET BY MOUTH EVERY DAY active Not Available Not Available No t Available tramadol 50 mg tablet TAKE 1 TABLET BY MOUTH THREE TIMES A DAY NEEDED FOR PAIN active Not Available Not Available No t Available levothyroxin e 25 mcg tablet TAKE 1 TABLET BY MOUTH EVERY DAY active Not Available Not Available No t Available amitriptylin e 25 mg tablet TAKE 1 TABLET BY MOUTH EVERYDAY AT BEDTIME active Not Available Not Available No t Available OneTouch Ultra Test strips USE DIRECTED 1-2 TIMES DAILY active Not Available Not Available No t Available trazodone 150 mg tablet TAKE 1 TABLET BY MOUTH AT BEDTIME FOR 14 DAYS active Not Available Not Available No t Available omeprazole 20 mg capsule,duane yed release TAKE 1 CAPSULE BY MOUTH EVERY DAY NEEDED active Not Available Not Available No t Available hydrochlorot hiazide 25 mg tablet TAKE 1 TABLET BY MOUTH EVERY DAY active Not Available Not Available No t Available lisinopril 40 mg tablet TAKE 1 TABLET BY MOUTH EVERY DAY active Not Available Not Available No t Available OneTouch UltraSoft Lancets TEST BLOOD SUGAR ONCE A DAY active Not Available Not Available No t Available pregabalin 75 mg capsule TAKE 1 CAPSULE BY MOUTH TWICE A DAY active Not Available Not Available No t Available quetiapine 50 mg tablet active Not Available Not Available Not Available Myrbetriq 25 mg tablet,exten ded release TAKE 1 TABLET BY MOUTH EVERY DAY active Not Available Not Available No t Available Eliquis 5 mg tablet TAKE 1 TABLET BY MOUTH TWICE A DAY active Not Available Not Available No t Available Eliquis DVT-PE Treatment 30-Day Starter 5 mg (74 tablets) in dose pack TAKE DIRECTED PER PACKAGE INSTRUCTION S active Not Available Not Available No t Available Vitals Date Recorded Body temperature Respiratory rate Heart rate Oxygen saturation Systolic And Diastolic Systolic And Diastolic Provider Name and Address Organization Details Last Updated DateTime 2 96.7 [degF] 20 /min 76 /min 99 % 138/86 mm[Hg] 136/82 mm[Hg] Not Available [facility] 2 14:28:35 Social History None recorded. Functional Status None recorded. Mental Status None recorded. Family History Nothing Reported. Medical History Condition Response Coronary Artery Disease Y CHF N Parkinson's Disease N Cancer N Dementia N Stroke N COPD N Depression N Hypothyroidism Y Asthma Y High Cholesterol Y Rheumatoid Arthritis N Pulmonary Embolism N Hypertension Y A-fib N Osteoporosis Y Kidney Disease N Gynecological HistoryNo gynecological history recorded. Obstetrics History GPAL:G 0 P 0 0 0 0 Past Encounters Encounter ID Performer Location Encounter Start Date Encounter Closed Date Diagnosis/Indication Diagnosis SNOMED-CT Code Diagnosis ICD10 Code Diagnosis IMO Codes Diagnosis Note [id number] DAIJA SNYDER NP [facility] - [address] [address] 12/17/2021 14:04:46 12/20/2021 19:45:47 Otalgia 96797222 H92.02 Health Concerns Section Related Observation LastModified by Organization Detai ls LastModified Time None Recorded Concern Status LastModified by Organization Details LastModified Time None Recorded Advance Directives Directive None Recorded Payers Insurance Date Sequence Insurance Name Policy Number Policy Tyson Covered Member ID Tyson Member ID Guarantor Name 12/24/2021 1 [place] B-[place] [employer] Danuta Bourgeois [id number] Danuta Bourgeois 12/17/2021 2 [place] [facility] Danuta Bourgeois [id number] Danuta Bourgeois 12/17/2021 1 *SELF PAY* Danuta Bourgeois [id number] Danuta Bourgeois Notes Date Note Type Note Provider Name and Address Organization Details Recorded Time 12/17/2021 text/html 71 year-old female with history of HTN, HLD, DM, who calls to home for evaluation of pulsating sensation to the left ear. Pt reports that about 2 days ago began hearing a pulse in her left ear - It matches her heart rate. She has not had any pain or discomfort but this pulsating sensation has been keeping her up at night. She denies any vision changes, temporal pain. She denies any pain with moving her jaw.She denies pain to her neck, chest pain. DAIJA SNYDER NP [address], [place], [address], [place] [facility] 12/17/2021 17:37:42 OBGyn Episode No OBEpisode recorded.
--- OUTSIDE RECORDS SUMMARY | 2025-08-19 13:21 | XMS_ITS | Clinical Summary ---
Author Organization [facility] Address [address] [address] Phone Care Team Providers Care Field Kiln Burner Name Role Phone Tani Hernandes MD Primary Care Provider [phone] Allergies Active Allergy Reactions Criticality Noted Date [...] Visit [facility] [address] [phone] Elvis Shea MD [address] [facility] [address] [place] [phone] Health Maintenance Due Date Last Done Comments [...] Medicaid [place] Care Teams Field Kiln Burner Relationship Specialty Start Date End Date Tani Hernandes MD [place] [id number] [place], [place] PCP - General Internal Medicine 09/13/22
--- OUTSIDE RECORDS SUMMARY | 2025-08-19 13:21 | XMS_ITS | Encounter Summary ---
Author Organization [facility] Address [address] [facility] [address] [place] [address] Phone Care Team Providers Care Screen Making Technician Name Role Phone Tani Hernandes MD Primary Care Provider [phone] Reason for Visit * Reason Comments Med Refill Encounter Details Date Type Department Care Team (Late st Contact Info) Description 09/04/2024 Refill [facility] [address] [facility] [address] [place] [phone] Audie Muhammad MD [address] [phone] Social History Tobacco Use Types Packs/Day Years [...] Visit [facility] [address] [facility] [address] [place] [address] Elvis Shea MD [address] [facility] [address] [place] [address] documented as of this encounter Visit Diagnoses Not on filedocumented in this encounter Care Teams Screen Making Technician Relationship Specialty Start Date End Date Tani Hernandes MD [address] PCP - General Internal Medicine 09/13/22 documented as of this encounter
--- OUTSIDE RECORDS SUMMARY | 2025-08-19 13:21 | XMS_ITS | Clinical Summary ---
Author Organization [employer] [facility] Prior to 01/25/25 Address [address] [place] [address] Care Team Providers Care Implant Polisher Name Role Phone Tani Hernandes MD Primary [...] age to complete this topic Care Teams Implant Polisher Relationship Specialty Start Date End Date Tani Hernandes MD [address] [place] [address] PCP - General Internal Medicine 09/09/22
--- OUTSIDE RECORDS SUMMARY | 2025-08-19 13:21 | XMS_ITS ---
Author Organization [employer] [facility] Prior to 01/25/[address] [place] [address] Care Team Providers Care Spring Tester Name Role Phone Tani Hernandes MD Primary Care Provider [phone] Active Problems Problem Noted Date Diagnosed Date [...] documented for this patient in [facility]. Treatments may have been administered in another system.
--- OUTSIDE RECORDS SUMMARY | 2025-08-19 13:21 | XMS_ITS ---
Author Organization [facility] Address [address] [place] [address] Phone Care Team Providers Care Engine Boss Name Role Phone Tani Hernandes MD Primary Care Provider [phone] Active Problems Problem Noted Date Diagnosed Date [...] / DRESSING CHANGE / FLUSH* Plan Start Date:08/19/2025 Plan Provider:Arron Rowley MD Linked Problems Malignant neoplasm of ascend ing colon ([facility] V24, [facility] V28)Acute non-Q wave non-ST elevation myocardial infarction (NSTEMI) ([facility] V24, [facility] V28) Treatment Medications No medications scheduled. Past Treatment and Therapy Plans No past plan information found.
--- OUTSIDE RECORDS SUMMARY | 2025-08-19 13:21 | XMS_ITS | Clinical Summary ---
Author Organization [facility] Address [address] [place] [address] Phone Care Team Providers Care Health Care Sanitary Technician Name Role Phone Tani Hernandes MD Primary Care Provider [phone] Allergies Active Allergy Reactions Criticality Noted Date [...] Encounters Date Type Department Care Team Description 08/19/2025 11:21 AM EST Hospital Encounter [facility] [address] [place] [phone] Malignant neoplasm of ascending colon (CMS/HCC V24, CMS/HCC V28) (Primary Dx); Acute non-Q wave non-ST elevation myocardial infarction (NSTEMI) (CMS/HCC V24, CMS/HCC V28) 06/23/2025 1:30 PM EDT - 06/23/2025 11:59 PM EDT Hospital Encounter [address] [phone] Malignant neoplasm of ascending colon (CMS/HCC V24, [...] Comments Hyperlipidemia Hypertension DVT (deep venous thrombosis) ([facility] V24, [facility] V28) Pulmonary embolism ([facility] V24, [facility] V28) CHF (congestive heart failure) ([facility] V24, [facility] V28) Asthma NSTEMI (non-ST elevated myoc ardial infarction) ([facility] V24, [facility] V28) Diabetes mellitus ([facility] V24, [facility] V28) Hypothyroidism Chronic back pain Family History [...] Info) Description 10/06/2025 1:30 PM EST Appointment [facility] CT Scan [address] [place] [phone] 10/14/2025 11:30 AM EST Appointment [facility] Infusion Center [address] [phone] 11/07/2025 2:15 PM EDT Office Visit [facility] Hematology Oncology [address] [place] [phone] Arron Rowley MD [address] [place] [phone] Health Maintenance Due Date Last Done Comments [...] Vaccine ( season) 2025 09/15/2021, 12/14/2020, 11/16/2020 Colorectal Cancer Screening: Colonoscopy 05/06/2025 05/06/2015 Falls Risk Assessment 01/14/2026 01/14/2025 Diabetes: Annual GFR (Glomerular Filtration Rate) 06/23/2026 06/23/2025, 03/21/2025, 03/21/2025, Additional history exists Hypertension/CHF/CAD Annual BMP Blood Test 06/23/2026 06/23/2025, 03/21/2025, 03/21/2025, Additional history exists DTaP,Tdap,and Td Vaccines (3 - Td or Tdap) 10/04/2031 10/04/2021, 05/22/2008 Influenza Vaccine Completed 06/23/2025, , 07/14/2023, Additional history exists HIB Vaccines Aged Out [...] CBC auto differential (06/23/2025 1:57 PM EDT) [facility] WBC 10.3 4.8 - 10.8 K/mcL LAB HEMETOLOGY METHOD 06/23/2025 2:38 PM EDT [facility] RBC 4.30 3.80 - 4.80 M/mcL LAB HEMETOLOGY METHOD 06/23/2025 2:38 PM EDT [facility] Hemoglobin 13.2 11.5 - 16.0 g/dL LAB HEMETOLOGY METHOD 06/23/2025 2:38 PM EDT [facility] Hematocrit 40.4 35.0 - 47.0 % LAB HEMETOLOGY METHOD 06/23/2025 2:38 PM EDT [facility] MCV 93.1 79.0 - 98.0 FL LAB HEMETOLOGY METHOD 06/23/2025 2:38 PM EDT [facility] MCH 30.4 27.0 - 32.0 pcg LAB [facility]OLOG[facility] MCHC 32.7 32.0 - 37.0 g/dL LAB HEMETOLOGY METHOD 06/23/2025 2:38 PM EDT [facility] RDW 13.9 11.0 - 15.0 % LAB HEMETOLOGY METHOD 06/23[facility]2025 [facility] Platelets 221 130 - 400 K/mcL LAB HEMETOLOGY METHOD 06/23/2025 2:38 PM EDT [facility] MPV 9.5 7.0 - 11.0 FL LAB HEMETOLOGY METHOD 06/23/2025 2:38 PM EDT [facility] NRBC 0.0 <1.0 % LAB HEMETOLOGY METHOD 06/23/2025 2:38 PM EDT [facility] NRBC Absolute 0.00 <0.10 K/mcL LAB HEMETOLOGY METHOD 06/23/2025 2:38 PM [facility] Neutrophils Relative 79.5 % LAB HEMETOLOGY METHOD 06/23/2025 2:38 PM [facility] Lymphocytes Relative 12.4 % LAB HEMETOLOGY METHOD 06/23/2025 2:38 PM [facility] Monocytes Relative 5.5 % LAB HEMETOLOGY METHOD 06/23/2025 2:38 PM [facility] Eosinophils Relative 1.3 % LAB HEMETOLOGY METHOD 06/23/2025 2:38 PM [facility] Basophils Relative 0.7 % LAB HEMETOLOGY METHOD 06/23/2025 2:38 PM [facility] Immature Granulocytes Relative 0.6 % LAB HEMETOLOGY METHOD 06/23/2025 2:38 PM [facility] Neutrophils Absolute 8.18(H) 1.50 - 7.00 K/mcL LAB HEMETOLOGY METHOD 06/23/2025 2:38 PM [facility] Lymphocytes Absolute 1.27 1.00 - 5.00 K/mcL LAB HEMETOLOGY METHOD 06/23/2025 2:38 PM T [facility] Monocytes Absolute 0.56 0.20 - 1.00 K/mcL LAB HEMETOLOGY METHOD 06/23/2025 2:38 PM [facility] Eosinophils Absolute 0.13 0.00 - 0.50 K/mcL LAB HEMETOLOGY METHOD 06/23/2025 2:38 PM [facility] Basophils Absolute 0.07 0.00 - 0.20 K/mcL LAB HEMETOLOGY METHOD 06/23/2025 2:38 PM EDT [facility] Immature Granulocytes Absolute 0.06(H) 0.00 - 0.03 K/mcL LAB HEMETOLOGY METHOD 06/23/2025 2:38 PM EDT [facility] Blood Blood sample taken from central line / Unknown Existing Catheter / Unknown 06/23/2025 1:57 PM EDT 06/23/2025 2:30 PM EDT Arron Rowley MD LAB BLOOD ORDERABLE S Final Result Performing Organization Address [facility]/ZIP Co de Phone Number [facility] [address] [place] [address], [place] [phone] * CEA (06/23/2025 1:57 PM EDT) CEA 2.4 0.0 - 5.0 ng/mL LAB CHEMISTRY METHOD 06/23/2025 5:23 PM EDT [facility] Blood Blood sample taken from central line / Unknown Existing Catheter / Unknown 06/23/2025 1:57 PM EDT 06/23/2025 2:30 PM EDT Narrative [facility] - 06/23/2025 5:23 PM EDT The Siemens Advia Centaur Chemiluminescent Immunoassay is used. Results obtained with different assay methods or kits cannot be used interchangeably. Results cannot be interpreted as absolute evidence of the presence or absence of malignant disease. Arron Rowley MD LAB BLOOD ORDERABLE S Final Result Performing Organization Address City/[facility]/ZIP Co de Phone Number [facility] [address] [place] [address], [place] [phone] * (ABNORMAL) Comprehensive metabolic panel (06/23/2025 1:57 PM EDT) Sodium 138 133 - 145 mmol/L LAB CHEMISTRY METHOD 06/23/2025 4:47 PM EDT [facility] Potassium 3.5 3.5 - 5.5 mmol/L LAB CHEMISTRY METHOD 06/23/2025 4:47 PM [facility] Chloride 102 96 - 110 mmol/L LAB CHEMISTRY METHOD 06/23/2025 4:47 PM [facility] CO2 29 21 - 32 mmol/L LAB CHEMISTRY METHOD 06/23/2025 4:47 PM [facility] Anion Gap 7 3 - 11 LAB CHEMISTRY METHOD 06/23/2025 4:47 PM [facility] Glucose 156(H) 70 - 100 mg/dL LAB CHEMISTRY METHOD 06/23/2025 4:47 PM [facility] BUN 23 5 - 25 mg/dL LAB CHEMISTRY METHOD 06/23/2025 4:47 PM [facility] Creatinine 1.22(H) 0.50 - 1.10 mg/dL LAB CHEMISTRY METHOD 06/23/2025 4:47 PM [facility] eGFR 47(L) >=60 mL/min/1. 73m2 LAB CHEMISTRY METHOD 06/23/2025 4:47 PM [facility] Comment:Calculation based on the Chronic Kidney Disease Epidemiology Collaboration (CKD-EPI) equation refit without adjustment for race. BUN/Creatinine Ratio 18.9 LAB CHEMISTRY METHOD 06/23/2025 4:47 PM [facility] Calcium 8.7 8.5 - 10.5 mg/dL LAB CHEMISTRY METHOD 06/23/2025 4:47 PM [facility] AST (SGOT) 30 10 - 42 unit/L LAB CHEMISTRY METHOD 06/23/2025 4:47 PM [facility] ALT (SGPT) 28 10 - 60 unit/L LAB CHEMISTRY METHOD 06/23/2025 4:47 PM [facility] Alkaline Phosphatase 63 42 - 121 unit/L LAB CHEMISTRY METHOD 06/23/2025 4:47 PM EDT [facility] Total Protein 6.4 6.0 - 8.0 g/dL LAB CHEMISTRY METHOD 06/23/2025 4:47 PM EDT [facility] Albumin 3.4 3.2 - 5.0 g/dL LAB CHEMISTRY METHOD 06/23/2025 4:47 PM EDT [facility] Total Bilirubin 0.5 0.0 - 1.4 mg/dL LAB CHEMISTRY METHOD 06/23/2025 4:47 PM EDT [facility] Blood Blood sample taken from central line / Unknown Existing Catheter / Unknown 06/23/2025 1:57 PM EDT 06/23/2025 2:30 PM EDT Miaramkj Rowley MD LAB BLOOD ORDERABLE S Final Result [facility] [address] [place] [address], * External Colonoscopy Report (05/06/2015 9:30 AM EDT) Anatomical Region Laterality Modality Endoscopy Historical Provider GI~PROCEDURE ORDERABLES F inal Result from Last 3 Months or Most Recently Relevant to Health Maintenance Insurance MEDICARE [place]ICAID - [place] Care Teams Health Care Sanitary Technician Relationship Specialty Start Date End Date Tani Hernandes MD [address] [place] [phone] PCP - General 09/09/22
--- OUTSIDE RECORDS SUMMARY | 2025-08-19 13:21 | XMS_ITS | Encounter Summary ---
Author Organization [facility] Prior to 01/25/25 Address [address] [place] [address] Care Team Providers Care Double Bottom Driver Name Role Phone Tani Hernandes MD Primary Care Provider [phone] Encounter Details Date Type Department Care Team Description 11/01/2022 Social Work [facility] Oncology Services [address] [place] [address] [facility] History Tobacco Use Types Packs/Day Years [...] on filedocumented in this encounter Care Teams Double Bottom Driver Relationship Specialty Start Date End Date Tani Hernandes MD [address] [place] [address] PCP - General Internal Medicine 09/09/22 documented as of this encounter
== END 2025-08-19 12:08 | disposition home or self-care (01) ==
LOC: HO.HMGCX 12:07
PROVIDERS: PCP Internal Medicine; Visit Provider Physician Assistant Medical
DX: M25.551 Pain in right hip (principal)
CPT/HCPCS: 73502

== ENCOUNTER → 2025-08-19 12:11 | Outpatient (BNV) | payer MEDICARE, MEDICAID, SELFPAY | PROVIDERS: PCP Internal Medicine; Visit Provider Radiology Diagnostic Radiology | DX: M16.11 Unilateral primary osteoarthritis, right hip (principal) | CPT/HCPCS: 73502 ==